=== PATIENT | female | born 1970 | race Caucasian/White ===

== ENCOUNTER 2023-02-19 14:39 | Outpatient (CLI) | payer OTHER, SELFPAY ==
--- NOTE | ~2023-02-19 | XR_ITS ---
EXAM: XR lumbar spine 2-3V DATE: 02/19/2023 14:53 HISTORY: low back pain . COMPARISON: None available. FINDINGS: Right nephrolithiasis. Mild lumbar scoliosis. 5 nonrib-bearing lumbar-type vertebral bodies . Pedicles intact. Normal vertebral body alignment. Vertebral body heights preserved. Mild marginal o steophytosis throughout the lumbar spine. Mild disc space narrowing at L4-5. Moderate disc space narr owing at L5-S1. Moderate-severe facet hypertrophy in the mid and lower lumbar spine. No fracture or d islocation. IMPRESSION: Multilevel degenerative disc disease, moderate at L5-S1. Moderate-severe mid and lower pablo mbar facet arthropathy. Reviewed, dictated and finalized at location K. ERTY CONDITION ASSESSOR IMPRESSION: Multilevel degenerative disc disease, moderate at L5-S1. Moderate-s evere mid and lower lumbar facet arthropathy.
--- NOTE | ~2023-02-19 | XR_ITS ---
Supine and upright views of the abdomen Clinical history: Abdominal pain Findings: Bowel gas pattern is nonspecific. No evidence for obstruction or free air. 12 mm stone note d at the mid pole the right kidney. Osseous structures are intact. Impression: 12 mm right renal stone. Reviewed, dictated and finalized at [facility]. LAB Impression: 12 mm right renal stone.
== END 2023-02-19 14:40 ==
PROVIDERS: PCP Emergency Medicine; Visit Provider Emergency Medicine
DX: R10.9 Unspecified abdominal pain (principal); N20.0 Calculus of kidney; M51.36 Other intervertebral disc degeneration, lumbar region; M51.37 Other intervertebral disc degeneration, lumbosacral region
CPT/HCPCS: 72100; 74018

== ENCOUNTER 2023-02-24 11:51 | Inpatient (IN) | payer OTHER, SELFPAY ==
--- NOTE | ~2023-02-24 | CT_ITS ---
EXAMINATION: CT abdomen pelvis wo/w con DATE: 03/01/2023 17:41 INDICATION: pyelitis TECHNIQUE: Computed tomography (CT) of the abdomen and pelvis was performed without and with 100 mL O mnipaque-350 intravenous contrast. Automated exposure control and iterative reconstruction technique were employed. The dose-length product was 2843.37 mGy-cm. COMPARISON: None. FINDINGS: Lower thorax: Moderate bilateral pleural fluid collections. Multifocal pneumonia and septic emboli, n ot significantly changed given interval change in positioning and displacement by the effusions. Liver: Normal. Biliary/Gallbladder: Gallbladder is normal. No bile duct dilation. Pancreas: No mass or duct dilation. Spleen: Normal. Adrenals:No mass. Kidneys: Moderate subcapsular collection surrounds the left kidney, heterogeneous density, no definit brennon enhancement. Perinephric gas present about the lower pole on the left. Urothelial enhancement on the left. 8mm right UPJ stone. Multilobulated rim-enhancing collection about the right mid and lower pole. GI tract: No small or large bowel dilation. Appendix not visualized. Mesentery/Peritoneum: No ascites, mass, or free air. Retroperitoneum: No mass. Pelvis: Pelvic organs are within normal limits. Soft Tissues: Mild body wall edema. Bones: No acute osseous finding. IMPRESSION: New moderate bilateral pleural effusions. Unchanged multifocal pneumonia and septic emboli. Heterogeneous subcapsular collection about the left kidney, imaging features most consistent with a h ematoma. Infection is not entirely excluded. Left pyelitis. Persistent but slightly decreased volume of perinephric gas on the left. Right mid and lower pole perinephric collection concerning for perinephric abscess. Reviewed, dictated and finalized at location K. D BANK COORDINATOR IMPRESSION: New moderate bilateral pleural effusions. Unchanged multifocal pneumonia and septic emboli. Heterogeneous subcapsular collection about the left kidney, imaging features mo st consistent with a hematoma. Infection is not entirely excluded. Left pyelitis. Persistent but slightly decreased volume of perinephric gas on t he left. Right mid and lower pole perinephric collection concerning for perinephric absc ess.
--- NOTE | ~2023-02-24 | XR_ITS ---
EXAMINATION: XR chest 2V DATE: 03/01/2023 08:22 INDICATION: Shortness of breath TECHNIQUE: PA and lateral views of the chest are obtained. COMPARISON: 02/27/2023 FINDINGS: Patchy bilateral airspace opacities persist with slight improvement. There are small, stabl e pleural effusions. No pneumothorax is identified. The cardiomediastinal silhouette is normal. There is mild thoracic spondylosis. IMPRESSION: 1. Patchy bilateral airspace opacities with slight improvement, consistent with pneumonia. Reviewed, dictated and finalized at location F. ETICS DIRECTOR
--- NOTE | ~2023-02-24 | XR_ITS ---
Portable chest x-ray Comparison: 02/26/2023 Clinical History: Pneumonia Findings: Patchy bilateral airspace disease again present, most confluent at the right lower lobe re gion. Cardiomediastinal silhouette is stable. Bones and soft tissues are unremarkable. Impression: Stable patchy bilateral airspace disease. Reviewed, dictated and finalized at [facility]. ADING MACHINE FEEDER AUTOMATIC Impression: Stable patchy bilateral airspace disease.
--- NOTE | ~2023-02-24 | CT_ITS ---
EXAMINATION: 1. CT guide absc cath placement 2. CT guide absc cath placement DATE: 03/04/2023 16:11 INDICATION: Bilateral perinephric abscesses. TECHNIQUE: The procedure including the risks, benefits, and alternatives was discussed with the patie nt. Risks discussed included bleeding and infection. The patient understood the risks and benefits an d agreed to proceed. The skin overlying the kidneys was prepped and draped in usual sterile fashion. Anesthetic was administered with 1% lidocaine subcutaneously. An 18 gauge trochar needle was inserte d into the right perinephric abscess with CT guidance. The needle was exchanged over a wire for 6 Enoch nch and 8 Argentine dilators and then for an 8.5 Argentine pigtail catheter. An 18 gauge trochar needle was inserted into the left perinephric abscess with CT guidance. The needl e was exchanged over a wire for 6 Argentine and 8 Argentine dilators and then for an 8.5 Argentine pigtail cat heter. The catheters were stitched to the skin, and sterile dressings were applied. The mA was adjust ed according to patient size. Iterative reconstruction technique was employed. The dose-length produc t was 379.42 mGy-cm. There were no immediate complications. FINDINGS: CT images demonstrate the catheter within the right perinephric abscess. 8 mL opaque will fl uid was aspirated for testing. CT images demonstrate the catheter within the left perinephric abscess . 7 mL bloody fluid was aspirated and discarded. IMPRESSION: 1. Successful CT-guided right perinephric abscess drainage. 2. 8 mL opaque will fluid from the right perinephric abscess was sent for aerobic and anaerobic cultur es. 3. Successful CT-guided left perinephric abscess drainage. Reviewed, dictated and finalized at location A. S OFFICER IMPRESSION: 1. Successful CT-guided right perinephric abscess drainage. 2. 8 mL opaque will fluid from the right perinephric abscess was sent for aerobi c and anaerobic cultures. 3. Successful CT-guided left perinephric abscess drainage.
--- NOTE | ~2023-02-24 | CT_ITS ---
EXAMINATION: CT abdomen pelvis wo con DATE: 02/24/2023 19:00 INDICATION: Left flank pain. Acute kidney injury. TECHNIQUE: Computed tomography (CT) of the abdomen and pelvis was performed without intravenous contr ast. Automated exposure control and iterative reconstruction technique were employed. The dose-length product was 1353.48 mGy-cm. COMPARISON: None. FINDINGS: There are scattered peripheral airspace opacities and nodules in the lungs. Some of the nod ules have areas of cavitation. No pleural effusion. The heart size is normal. No pericardial effusion . There is diffuse hepatic steatosis. The gallbladder, spleen, pancreas, and adrenal glands are paulo l. There is an 8 mm stone in right renal pelvis. There is soft tissue attenuation in right perinephri c fat. There is a hyperdense subcapsular hematoma of left kidney with maximum thickness of 16 mm. The re is gas in the left perinephric fat. There is urothelial thickening in left renal pelvis. There are no dilated loops of bowel. The appendix is not visualized. There are no pathologically enlarged lymp h nodes. There is no free intraperitoneal fluid. There is mild thoracic and lumbar spondylosis. IMPRESSION: 1. Acute subcapsular hematoma of left kidney. 2. Urothelial thickening in left renal pelvis, consistent with pyelitis. Gas in the left perinephric fat may be from infection in the absence of recent intervention. 3. Soft tissue in right perinephric space. This finding may be subacute hematoma and/or cellulitis. 4. Nonobstructing right kidney stone. 5. Diffuse lung disease, likely multifocal pneumonia and septic emboli. Reviewed, dictated and finalized at location E. ONAL PLANNER IMPRESSION: 1. Acute subcapsular hematoma of left kidney. 2. Urothelial thickening in left renal pelvis, consistent with pyelitis. Gas in the left perinephric fat may be from infection in the absence of recent interv ention. 3. Soft tissue in right perinephric space. This finding may be subacute hematom a and/or cellulitis. 4. Nonobstructing right kidney stone. 5. Diffuse lung disease, likely multifocal pneumonia and septic emboli.
--- NOTE | ~2023-02-24 | XR_ITS ---
Portable chest x-ray Comparison: None Clinical History: Pneumonia Findings: There is patchy bibasilar airspace consolidation with mild peripheral haziness throughout most of the lungs. Cardiomediastinal silhouette is stable. Bones and soft tissues are unremarkable. Impression: Extensive patchy airspace disease, worse at the lung bases. Correlate for pulmonary edema/atelectasis versus pneumonia. Element of underlying interstitial disease is not completely excluded. Reviewed, dictated and finalized at location . DSCRIBER MECHANIC Impression: Extensive patchy airspace disease, worse at the lung bases. Correlate for pulmo nary edema/atelectasis versus pneumonia. Element of underlying interstitial dis ease is not completely excluded.
[2023-02-24 12:10] VITALS: BP 147/66; PULSE 107; RESP 18; TEMP 36.4; O2SAT 95
[2023-02-24 14:23] VITALS: RESP 20
--- NOTE | 2023-02-24 15:08 | ED.RECABL ---
HPI - Recheck/Abnormal Lab/Rx General Chief Complaint: Recheck/Abnormal Lab/Rx Stated Complaint: Abnormal labs Time Seen by Provider: 02/24/23 14:29 History of Present Illness HPI narrative: Patient is a 52-year-old female who presents ER due to abnormal outpatient labs. Recently was seen by her PCP for fatigue. Patient found to have elevated blood sugar and possible UTI. Patient reports mild discomfort around the joint when she urinates. No fevers or chills or sweats. She does feel like she has been drinking more water than typical. No previous history of diabetes and she is not on any diabetic medication. Related Data Home Medications Medication Instructions Recorded Confirmed multivitamin (Daily Multi-Vitamin 1 tablet PO DAILY 02/19/23 02/19/23 tablet) Allergies Allergy/AdvReac Type Severity Reaction Status Date / Time acetaminophen [From Vicodin] AdvReac Mild Dizziness Verified 02/24/23 14:25 hydrocodone [From Vicodin] AdvReac Mild Dizziness Verified 02/24/23 14:25 propoxyphene AdvReac Mild Dizziness Verified 02/24/23 14:25 [From Darvocet-N] Review of Systems Review of Systems: All systems reviewed & are unremarkable except as noted in HPI and below Constitutional: Constitutional: Denies chills, Reports fatigue and Denies fever(s) Cardiovascular: Cardiovascular: Reports no additional cardiovascular complaints Respiratory: Respiratory: Reports no additional respiratory complaints Gastrointestinal: Gastrointestinal: Reports no additional gastrointestinal complaints Genitourinary: Genitourinary: Denies nocturia, Reports dysuria and Denies flank pain PMFSH Past Medical History Medical History (Updated 02/24/23 @ 18:15 by Sung Morales MD) Diabetes Surgical History Surgical History (Updated 02/19/23 @ 13:38 by Cassie Willoughby CMA) No history of previous surgery Family History Family History (Updated 02/19/23 @ 13:39 by Cassie Willoughby CMA) Father Cancer Hypertension Mother Diabetes mellitus Heart disease Sibling Diabetes mellitus Social History Social History (Updated 02/19/23 @ 13:37 by Cassie Willoughby CMA) Smoking status: Never smoker Alcohol intake: current Substance use: never Lack of Transportation: No Lack of Food: Never True Current Housing: I Have Housing Concerned About Future Housing: No Difficulty Paying Gas/Electric Bills: No Difficulty Paying for Meds: No Currently Unemployed: No Education: Master's Degree or Higher Living arrangements: with family Occupation/Education: occupation 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 HEAD: Normocephalic, atraumatic. EYES: PERRL and EOMI. ENT: Dry mucous membranes CHEST: Clear to auscultation. No respiratory distress. HEART: Regular rate and rhythm. Normal peripheral pulses. EXTREMITIES: Normal range of motion. No edema. SKIN: Warm, dry, no rash. NEURO: Alert and oriented x3. PSYCH: Normal mood and affect. Course Course Emergency Course: patient resting comfortably. Informed of results. admit to hospitalist service. Patient with ROSARIO with UTI that may be becoming pyelonephritis. Ceftriaxone started. Blood cultured. Aggressive hydration ordered. Vital Signs Vital signs: Vital Signs Temperature 97.6 F 02/24/23 12:10 Pulse Rate 107 H 02/24/23 12:10 Respiratory Rate 18 02/24/23 12:10 Blood Pressure 147/66 H 02/24/23 12:10 Pulse Oximetry 95 02/24/23 12:10 Temperature 97.6 F 02/24/23 12:10 Pulse Rate 107 H 02/24/23 12:10 Respiratory Rate 20 02/24/23 14:23 Blood Pressure 147/66 H 02/24/23 12:10 Pulse Oximetry 95 02/24/23 12:10 MDM - Recheck/Abnormal Lab/Rx Lab Data 02/24/23 15:25 02/24/23 15:25 Labs: Lab Results 02/24/23
[2023-02-24] MEDS: SODIUM CHLORIDE 0.9% IV 1,000 ML 999 ML IV CONT ×4 (15:26→20:48)
[2023-02-24 15:33] LABS: Hematocrit 35.5 % (37.0-47.0); Hemoglobin 11.7 g/dL (12.0-15.0); Mean Corpuscular Hemoglobin 29.9 pg (26-34); Mean Corpuscular Volume 90.8 fl (80-100); Mean Platelet Volume 10.3 fl (7.4-10.4); Platelet Count Result 376 k/mm3 (150-375); Red Blood Count 3.91 M/mm3 (4.2-5.4); Red Cell Distribution Width 12.6 % (11.5-14.5); White Blood Count 25.5 K/mm3 (4.5-10.0)
[2023-02-24 15:49] LABS: Appearance Urine Turbid (Clear); Bacteria Urine 4+ /hpf; Bilirubin Urine Negative (Negative); Blood Urine 3+ (Negative); Color Urine Yellow (Yellow); Glucose Urine UA 3+ mg/dL (Negative); Ketones Urine Trace mg/dL (Negative); Leukocyte Esterase Ur 2+ LEU/UL (Negative); Need Manual Microscopic Reviewed; Nitrate Urine Negative (Negative); Non Pathogenic Casts >20; Protein Urine 3+ mg/dL (Negative); Specific Grav Ur 1.023 (1.001-1.035); Squamous Epithelial Cell Urine Many /hpf (Few); Urobilinogen Urine 0.2 mg/dL (<2.0); WBC Urine >100 /hpf; pH Urine 5.5 (5.0-9.0)
[2023-02-24 15:50] LABS: Alanine Aminotransferase 26 U/L (6-35); Albumin Level 3.5 g/dL (3.5-5.1); Alkaline Phosphatase 338 U/L (38-126); Anion Gap 19 mmol/L (8-16); Aspartate Amino Transferase 23 U/L (14-36); Bilirubin,Total 0.8 mg/dL (0.2-1.3); Blood Urea Nitrogen 50 mg/dL (7-17); Calcium 9.9 mg/dL (8.4-10.2); Carbon Dioxide 19 mmol/L (22-30); Chloride 88 mmol/L (98-107); Estimated CRCL calculation 27 ml/min; Estimated Glomerular Filt Rate 21; Glucose 599 mg/dL (65-110); Potassium 4.6 mmol/L (3.4-5.0); Sodium 126 mmol/L (137-145)
[2023-02-24 15:51] LABS: Add Urine Microscopic? YES
[2023-02-24 16:03] LABS: Band Neutrophils Percent 12 % (0-6); Lymphocytes Absolute Manual 2.55 K/mm3 (1.1-4.5); Monocytes Absolute Manual 1.78 K/mm3 (0.1-0.90); Monocytes Percent Manual 7 % (3-9); Neutrophils Absolute Manual 21.16 K/mm3 (1.7-7.2); Neutrophils Percent Manual 71 % (46-73); Total Cells Counted 100
[2023-02-24 16:04] LABS: Schistocytes None Seen (NORMAL)
[2023-02-24 17:44] LABS: Lactic Acid Reflex 2.1 mmol/L (0.7-2.0)
[2023-02-24 17:54] LABS: Glucose Point of Care > 500 mg/dl (65-105)
[2023-02-24] MEDS: ONDANSETRON INJ 4 MG/2 ML VIAL IV PUSH (19:23)
[2023-02-24 19:28] VITALS: BP 150/75; PULSE 112; RESP 20; O2SAT 95
[2023-02-24] MEDS: SODIUM CHLORIDE 0.9% IV 1,000 ML 125 ML IV CONT (19:35)
[2023-02-24 19:47] LABS: Glucose Point of Care > 500 mg/dl (65-105)
--- NOTE | 2023-02-24 20:05 | PM.IMHP ---
H&P: HPI History of Present Illness Date/Time: 02/24/23 18:15 Chief Complaint: Abnormal labs. Narrative: This is a very pleasant 52-year-old female with no significant medical history, however she does admit that she is bad about going to the doctor, who presented to the emergency department via private vehicle for evaluation of abnormal labs. The patient provides the following history. Several weeks ago she had the COVID booster and flu shot and she felt a bit sick thereafter with headache and chills. It is not unusual for her to have the symptoms post vaccination however the symptoms continued and the following weekend she developed a fever, generalized malaise, decreased energy, poor appetite, mild dysuria, a constant aching discomfort in the left back into the flank. She finally made an appointment with a doctor and she had routine labs drawn late last week and an x-ray of the lumbar spine which showed a kidney stone in the right kidney. The last several days her pain has been worse and she has now had nausea and vomiting. She also endorses poor appetite, polydipsia, and polyuria. Today she received a phone call that she needed to come to the ER as her glucose was high. She has no known history of diabetes. She denies sick contacts. No sore throat, headache, or sinus congestion. She denies chest pain and shortness of breath. No significant cough. Denies diarrhea. In the ED: She was afebrile on arrival with stable blood pressures. Labs were significant for a WBC count of 25.5 with 12% bands, sodium 126, potassium 4.6, chloride 88, carbon dioxide 19, anion gap 19, BUN 50, creatinine 2.40, glucose 599, lactic acid 2.1. UA was positive for 3+ protein, 3+ glucose, trace ketones, 3+ blood, 2+ leukocyte esterase, 11 to 20 RBC, greater than 100 WBC, many squamous cells, and 4+ bacteria. She was given 1 g of ceftriaxone and 2 L fluid bolus and I was asked to admit her in this setting. At the time my evaluation she had left-sided CVA tenderness and tenderness to palpation throughout the left side of the abdomen. CT of the abdomen pelvis showed an acute subcapsular hematoma of left kidney, left-sided emphysematous pyelitis, nonobstructing right kidney stone, and diffuse lung disease, likely multifactorial pneumonia and septic emboli. Unfortunately despite aggressive IV fluid rehydration and rapid acting insulin, her repeat BMP has continued to show hyperglycemia and increasing anion gap and she is being transferred to the ICU for insulin drip. Review of Systems Review of Systems: Twelve systems were reviewed and are negative except for as per HPI. [facility] Past Medical History Medical History (Updated 02/25/23 @ 01:37 by Malou Parra PA-C) Type 2 diabetes mellitus Surgical History Surgical History No history of previous surgery Family History Family History Father Cancer Hypertension Mother Diabetes mellitus Heart disease Sibling Diabetes mellitus Social History Social History (Updated 02/25/23 @ 01:33 by Malou Parra PA-C) Social History: Surrogate medical decision maker: Magno Newman, spouse. Code status: Full code. 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
[2023-02-24 20:12] LABS: Anion Gap 16 mmol/L (8-16); Blood Urea Nitrogen 50 mg/dL (7-17); Carbon Dioxide 16 mmol/L (22-30); Chloride 95 mmol/L (98-107); Estimated CRCL calculation 31 ml/min; Estimated Glomerular Filt Rate 25; Glucose 540 mg/dL (65-110); Magnesium 1.8 mg/dL (1.6-2.3); Potassium 4.6 mmol/L (3.4-5.0); Sodium 127 mmol/L (137-145)
[2023-02-24 20:20] LABS: Reflex Lactic Acid Yes or No Add Lactic
[2023-02-24] MEDS: INSULIN ASPART (*BKC) 100 UNITS/ML 12 UNITS SUB-Q (20:48)
[2023-02-24 21:15] LABS: Beta-Hydroxybutyrate/Acetoacetate 2.48 mmol/L (0.02-0.27)
[2023-02-24 21:18] LABS: Alveolar/Arterial O2 Gradient 43.4 mmHg; Base Excess ABG -7.9 mEq/l (+/-2.0); Carboxyhemoglobin 0.7 % THb (0-2.0); Device ROOM AIR; Fractional Inspired Oxygen 21 %; HCO3 ABG 17.4 mEq/l (22.0-26.0); Methemoglobin ABG 0.4 %THb (0-1.5); Modified Allen's Test Pass; Oxygen Content ABG 14.4 %vol (16.0-22.0); Oxygen Saturation ABG 91.1 % (95.0-100.0); Oxyhemoglobin 89.5 % THb (90.0-100.0); PCO2 ABG 34.9 mmHg (35.0-45.0); PO2 ABG 64.5 mmHg (80.0-100.0); PO2 FiO2 Ratio Arterial Blood 3.07 %; Reduced Hemoglobin 9.4 %THb (0-5.0); Site Drawn RIGHT RADIAL; Total Hemoglobin 11.4 g/dL (12.0-18.0); pH ABG 7.316 (7.350-7.450)
[2023-02-24 21:20] VITALS: BMI 38.9
[2023-02-24 21:20] LABS: Creatine Kinase < 20 U/L (30-135)
[2023-02-24 21:36] VITALS: BP 149/69; PULSE 103; RESP 16; TEMP 36.3; O2SAT 94
[2023-02-24 21:49] VITALS: BMI 38.9
[2023-02-24 21:55] LABS: Glucose Point of Care 466 mg/dl (65-105)
[2023-02-24 22:00] VITALS: PULSE 102
[2023-02-24] MEDS: MEROPENEM 1 GM/NS 100 ML 1 GM/100 ML BAG IVPB (22:05)
[2023-02-24 22:09] LABS: Hemoglobin A1C 12.3 % (<5.7)
--- NOTE | 2023-02-24 23:09 | ADMGEN ---
This patient, Dayna Newman, was admitted to IMU Room 209- at 2136. Patient/family oriented to hospital policies and general routines including ID bracelet, bed and alarms, visiting hours, pain management, procedures, bathroom and other care routines, personal items, smoking policy, room service/diet, and visiting hours. Information on how to activate the Rapid Response Team has been discussed. Patient/Family are encouraged to report perceived risks to care and to ask questions if they do not understand what they are told or what they should do.
[2023-02-24] MEDS: VANCOMYCIN 1,000 MG/NS 250 ML 1,000 MG/250 ML BAG 250 MG IVPB (23:27)
[2023-02-24] MEDS: VANCOMYCIN 1,250 MG/NS 250 ML 1,250 MG/250 ML BAG 166.67 MG IVPB (23:27)
[2023-02-25] VITALS (12 sets, daily range): BP systolic 124–158; BP diastolic 50–73; PULSE 80–107; RESP 16–30; TEMP 36.3–37.3; O2SAT 85–99; BMI 39.8
[2023-02-25 00:40] LABS: Anion Gap 14 mmol/L (8-16); Blood Urea Nitrogen 49 mg/dL (7-17); Carbon Dioxide 13 mmol/L (22-30); Chloride 101 mmol/L (98-107); Estimated CRCL calculation 37 ml/min; Estimated Glomerular Filt Rate 30; Glucose 412 mg/dL (65-110); Potassium 4.2 mmol/L (3.4-5.0); Sodium 128 mmol/L (137-145)
[2023-02-25 00:43] LABS: Glucose Point of Care 379 mg/dl (65-105)
--- NOTE | 2023-02-25 01:42 | ECHO_ITS ---
Patient Info Name: Dayna Newman Age: 52 years : 1970 Gender: Female Ht: 63 in Wt: 219 lbs BSA: 2.15 m2 HR: 80 bpm BP: 152 / 61 mmHg Heart Rhythm: Sinus Rhythm Technical Quality: Fair Exam Date: 02/25/2023 12:29 PM Exam Location: Echo Lab Patient Status: Inpatient Admit Date: 02/25/2023 Staff Ordering Physician: Malou Parra PA-C Mds Rn: Emperatriz Barraza RDCS Attending Provider: Kentrell Crowe MD Referring Physician: Fidel SMITH; Exam Type: CA echo dop color flow w con Study Info Indications - Sepsis, Septic emboli R00.0 - Tachycardia, unspecified Complete two-dimensional, color flow and Doppler transthoracic echocardiogram is performed with contrast to opacify the left ventricle and to improve the deliniation of the left ventricle endocardial borders. Contrast/Agitated Saline Contrast/Ag. Saline: Definity Amount: 2.00 ml Administered By: Emperatriz Barraza RDCS Existing IV Access: Yes IV Access Condition: patent with no signs of infiltration Summary 1. Normal left ventricular size and thickness with good contractility of all segments. Ejection fraction 65-70%. No segmental wall motion abnormalities. Normal diastolic function. 2. Mildly thickened mitral valve leaflets but no evidence of vegetation on any of the valves. 3. No significant stenosis or insufficiency of the valves. 4. Somewhat technically difficult study, definity echo contrast used. 5. Normal sinus rhythm. Left Ventricle Left ventricular chamber dimension is normal. Left ventricular systolic function is normal, estimated at 65-70%. There is no increased left ventricular wall thickness. Left ventricular septal wall motion is normal. The left ventricular diastolic function is normal. Right Ventricle Right ventricular chamber dimension is normal. Right ventricular systolic function is normal. Left Atria Left atrial chamber dimension is mildly enlarged. Right Atria Right atrial chamber dimension is normal. Aortic Valve The aortic valve is trileaflet. There is no aortic valve sclerosis. There is no aortic valve stenosis. There is no aortic valve regurgitation. Pulmonic Valve The pulmonic valve is normal. There is no pulmonic valve stenosis. There is trace pulmonic regurgitation. Mitral Valve The mitral valve has thickened leaflets. There is no mitral valve stenosis. There is no mitral valve regurgitation. Tricuspid Valve The tricuspid valve leaflets are normal. There is no significant tricuspid valve stenosis. There is trace tricuspid valve regurgitation. No pulmonary hypertension, estimated pulmonary arterial systolic pressure is 30 mmHg. Pericardium/Pleural The pericardium appears normal. There is no pericardial effusion. Inferior Vena Cava Normal inferior vena cava with >50% collapse upon inspiration consistent with Empty right atrial pressure, 10 mmHg. Aorta The aortic root size at the sinus of Valsalva is normal. The prox ascending aorta size is normal. Left Ventricular Outflow Tract Name Value Normal LVOT 2D LVOT Diameter 1.96 cm LVOT Doppler LVOT Peak Gradient 4 mmHg LVOT Mean Gradient
--- NOTE | 2023-02-25 02:30 | PC.NURSE ---
This patient, Dayna Newman, was transferred to ICU 11 on 02/25/23 at 0225. Personal belongings sent with patient. Report given to SHANTI Lawson. Appropriate documentation sent with patient.
[2023-02-25] MEDS: INSULIN HUMAN REGULAR (*BKC) 100 UNITS/ML 15 UNITS IV PUSH (02:55)
[2023-02-25] MEDS: INSULIN HUMAN REGULAR (*BKC) 100 UNITS in SODIUM CHLORIDE 0.9% IV 99 ML 10 UNITS IV CONT (02:56)
[2023-02-25] MEDS: SODIUM CHLORIDE 0.9% IV 1,000 ML 150 ML IV CONT (02:58)
[2023-02-25 03:28] LABS: Glucose Point of Care 363 mg/dl (65-105)
[2023-02-25] MEDS: HYDROcodone/acetaminophen (*CRX) 5-325 MG TABLET 1 TAB PO ×3 (03:31→19:36)
[2023-02-25 04:11] LABS: Glucose Point of Care 357 mg/dl (65-105)
[2023-02-25 05:10] LABS: Glucose Point of Care 261 mg/dl (65-105)
[2023-02-25] MEDS: KCL 20 MEQ/D5/0.45% SOD CHL 1,000 ML 150 ML IV CONT ×2 (06:37→20:04)
--- NOTE | 2023-02-25 06:48 | PC.NURSE ---
okay to draw bmp at 700
[2023-02-25 07:05] LABS: Hematocrit 35.5 % (37.0-47.0); Hemoglobin 11.3 g/dL (12.0-15.0); Mean Corpuscular HGB Conc 31.8 g/dl (32-36); Mean Corpuscular Hemoglobin 30.1 pg (26-34); Mean Corpuscular Volume 94.7 fl (80-100); Platelet Count Result 304 k/mm3 (150-375); Red Blood Count 3.75 M/mm3 (4.2-5.4); Red Cell Distribution Width 12.5 % (11.5-14.5); White Blood Count 22.8 K/mm3 (4.5-10.0)
[2023-02-25 07:21] LABS: Glucose Point of Care 198 mg/dl (65-105)
[2023-02-25 07:21] LABS: Glucose Point of Care 198 mg/dl (65-105)
[2023-02-25 07:47] LABS: Anion Gap 12 mmol/L (8-16); Blood Urea Nitrogen 50 mg/dL (7-17); Calcium 8.3 mg/dL (8.4-10.2); Carbon Dioxide 18 mmol/L (22-30); Chloride 104 mmol/L (98-107); Estimated CRCL calculation 34 ml/min; Estimated Glomerular Filt Rate 26; Glucose 217 mg/dL (65-110); Potassium 3.8 mmol/L (3.4-5.0); Sodium 134 mmol/L (137-145)
[2023-02-25 08:42] LABS: Glucose Point of Care 198 mg/dl (65-105)
[2023-02-25 09:20] LABS: MRSA (PCR) NOT DETECTED (NOT DETECTE)
[2023-02-25 09:26] LABS: Glucose Point of Care 225 mg/dl (65-105)
[2023-02-25] MEDS: MEROPENEM 1 GM/NS 100 ML 1 GM/100 ML BAG IVPB ×2 (09:50→20:38)
[2023-02-25] MEDS: SODIUM CHLORIDE 0.9% IV 1,000 ML 999 ML IV CONT (10:11)
[2023-02-25 11:06] LABS: Anion Gap 13 mmol/L (8-16); Blood Urea Nitrogen 49 mg/dL (7-17); Calcium 8.1 mg/dL (8.4-10.2); Carbon Dioxide 15 mmol/L (22-30); Chloride 105 mmol/L (98-107); Estimated CRCL calculation 36 ml/min; Estimated Glomerular Filt Rate 28; Glucose 262 mg/dL (65-110); Potassium 4.7 mmol/L (3.4-5.0); Sodium 133 mmol/L (137-145)
[2023-02-25 12:22] LABS: Glucose Point of Care 282 mg/dl (65-105)
[2023-02-25 12:22] LABS: Glucose Point of Care 244 mg/dl (65-105)
[2023-02-25] MEDS: PERFLUTREN LIPID MICROSPHERES 1.5 ML VIAL DILUTED TO 10 ML TOTAL VOLUME IV PUSH (13:01)
[2023-02-25 13:02] LABS: Glucose Point of Care 349 mg/dl (65-105)
--- NOTE | 2023-02-25 13:41 | WPDCNINT ---
Assessment and Plan Assessment and plan (1) Diabetic ketoacidosis associated with type 2 diabetes mellitus: Code(s): E11.10 - Type 2 diabetes mellitus with ketoacidosis without coma Status: Acute Assessment and Plan: Patient presented with hyperglycemia, nausea, vomiting. 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 - Tubulo-interstitial nephritis, not specified as acute or chronic Status: Acute Assessment and Plan: Patient has been started on vancomycin and meropenem for possible pyelonephritis (3) Acute kidney injury: Code(s): N17.9 - Acute kidney failure, unspecified Status: Acute Assessment and Plan: Acute kidney injury could be related to pyelonephritis, hypovolemia, DKA -patient adequately fluid-resuscitated, continue monitor urine output renal function electrolytes -creatinine is improving 1.90 this morning (creatinine was 2.40 on admission) (4) Renal hematoma, left: Code(s): S37.012A - Minor contusion of left kidney, initial encounter Status: Acute Assessment and Plan: Urology has been consulted, await their evaluation and recommendation (5) Diffuse lung disease: Code(s): J98.4 - Other disorders of lung Status: Acute Assessment and Plan: Possible pneumonia, continue vancomycin and meropenem Plan DVT prophylaxis: Lovenox Stress ulcer prophylaxis: Not indicated Nutrition: NPO except ice chips Code Status: Full code Critical Care Time Spent: 46 minutes Due to a high probability of clinically significant, life threatening deterioration, the patient required my highest level of preparedness to intervene emergently and I personally spent this critical care time directly and personally managing the patient. This critical care time included obtaining a history; examining the patient; pulse oximetry; ordering and review of studies; arranging urgent treatment with development of a management plan; evaluation of patient's response to treatment; frequent reassessment; and discussions with other providers. It was exclusive of separately billable procedures and treating other patients and teaching time. Please see Assessment and Plan section and the rest of the note for further information on patient assessment and treatment This dictation may have been done utilizing a voice recognition system. Attempts have been made to correct errors. However, there may be uncorrected grammatical, spelling, and recognitions errors present. Child Welfare Caseworker Consult Note Consult date: 02/25/23 Reason for consult: Diabetic ketoacidosis, hyperglycemia, UTI HPI: Dayna Newman is a 52 year old female with no significant past medical history as she has not seen a doctor and long long time presented the ED on 02/24/2023 for hyperglycemia and possible UTI. Patient was found to be in DKA in the ER with blood sugars of 599, anion gap of 19, elevated beta hydroxybutyrate. White count of 25.5 x 12% bandemia. UA was positive with 3+ protein, 3+ glucose, trace ketones, 3+ blood 2+ leukocyte Estrace, 4+ bacteria patient was given 2 L IV fluids in the ER and started on insulin infusion per DKA protocol. Patient also complained of left-sided CVA tenderness and tenderness to on the left side of the abdomen. CT scan of the abdomen and pelvis showed acute subcapsular hematoma of left kidney, left-sided emphysematous pyelitis, nonobstructing right kidney stone, and diffuse lung disease, likely multifactorial pneumonia and septic emboli. Patient was transferred to the ICU for further management Patient seen examined the ICU, is
[2023-02-25 14:22] LABS: Glucose Point of Care 277 mg/dl (65-105)
[2023-02-25 14:22] LABS: Glucose Point of Care 293 mg/dl (65-105)
--- NOTE | 2023-02-25 14:25 | WPDURCON ---
Assessment and Plan Assessment and plan (1) Emphysematous pyelitis: Code(s): N12 - Tubulo-interstitial nephritis, not specified as acute or chronic Status: Acute Assessment and Plan: Await urine cultures and needs to be treated with a least 2 week course of antibiotics. Can be converted to oral once sensitivities are identified (2) Renal hematoma, left: Code(s): S37.012A - Minor contusion of left kidney, initial encounter Status: Acute Assessment and Plan: Etiology is unclear may simply have been spontaneous. Follow H& H. Will need repeat imaging in approximately 4-6 weeks to see if hematoma is resolving Urology Consult Note HPI Date Seen: 02/25/23 Time Seen: 14:26 Requesting Physician: Kentrell Crowe MD Primary Care Provider: Patrick Montero MD Consult Narrative Reason for consult: Pyelonephritis with subcapsular hematoma-left kidney Narrative: Dayna Newman is a 52 year old female who underwent a COVID in flu vaccine in then developed some issues post vaccination with lethargy and left flank pain. Evaluation in the emergency room revealed a blood sugar of 599 along with what appears to be infected urine with left emphysematous pyelonephritis and a left subcapsular hematoma. She denies any trauma to the area were prior history of such issues. White count on admission was 25,000 which is down to 22,000 today. Creatinine on admission 2.4 down to 1.9 today. Review of Systems Review of Systems: All systems reviewed & are unremarkable except as noted in HPI and below PMFSH Past Medical History Medical History Type 2 diabetes mellitus Surgical History Surgical History No history of previous surgery Family History Family History Father Cancer Hypertension Mother Diabetes mellitus Heart disease Sibling Diabetes mellitus Social History Social History Social History: Surrogate medical decision maker: Magno Newman, spouse. Code status: Full code. 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 Spiritual care concerns: No Agree to blood products: Yes Meds Home Medications and Allergies Home Medications Medication Instructions Recorded Confirmed Type multivitamin (Daily Multi-Vitamin 1 tablet PO DAILY 02/19/23 02/24/23 History tablet) Allergies Allergy/AdvReac Type Severity Reaction Status Date / Time acetaminophen [From Vicodin] AdvReac Mild Dizziness Verified 02/24/23 14:25 hydrocodone [From Vicodin] AdvReac Mild Dizziness Verified 02/24/23 14:25 propoxyphene AdvReac Mild Dizziness Verified 02/24/23 14:25 [From Darvocet-N] Vital Signs Vital Signs - 24 hr 02/24/23 19:28 02/24/23 21:36 02/24/23 23:35 Temperature 36.3 C L Pulse Rate 112 H 103 H Respiratory Rate 20 16 Blood Pressure 150/75 H 149/69 H Pulse Oximetry 95 94 Oxygen Delivery Room Air Oxygen Flow Rate 02/24/23 22:00 02/25/23 00:00 02/25/23 00:00 Temperature 36.3 C L Pulse Rate 102 H 106 H 107 H Respiratory Rate 16 Blood Pressure 131/50 L Pulse Oximetry 85 L Oxygen Delivery Oxygen Flow Rate 02/25/23 04:00 02/25/23 04:00 02/25/23 04:00 Temperature 36.9 C Pulse Rate 80 80 80 Respiratory Rate 16 25 H Blood
--- NOTE | 2023-02-25 14:57 | IVDEFINITY ---
Prior to administration of IV Definity the patient was educated on the risks and benefits of the imaging enhancing agent including potential adverse side effects. The patient verbalized understanding. Allergies were verified. No exclusion criteria were identified and at least one of the following inclusion criteria were met: 1) physician request, 2) patient technically difficult to image (per the [place] [employer] guidelines of two or more segments not discernable within the apical view), or 3) questionable left ventricular function. ?
[2023-02-25] MEDS: ENOXAPARIN 40 MG/0.4 ML SYRINGE SUB-Q (15:24)
[2023-02-25 15:25] LABS: Glucose Point of Care 271 mg/dl (65-105)
[2023-02-25 16:28] LABS: Glucose Point of Care 228 mg/dl (65-105)
[2023-02-25 17:26] LABS: Glucose Point of Care 229 mg/dl (65-105)
[2023-02-25 18:26] LABS: Glucose Point of Care 232 mg/dl (65-105)
[2023-02-25 18:38] LABS: Anion Gap 13 mmol/L (8-16); Blood Urea Nitrogen 46 mg/dL (7-17); Calcium 8.1 mg/dL (8.4-10.2); Carbon Dioxide 12 mmol/L (22-30); Chloride 106 mmol/L (98-107); Estimated CRCL calculation 40 ml/min; Estimated Glomerular Filt Rate 32; Glucose 262 mg/dL (65-110); Potassium 4.4 mmol/L (3.4-5.0); Sodium 131 mmol/L (137-145)
[2023-02-25 19:52] LABS: Glucose Point of Care 224 mg/dl (65-105)
[2023-02-25 20:48] LABS: Glucose Point of Care 252 mg/dl (65-105)
[2023-02-25] MEDS: INSULIN HUMAN REGULAR (*BKC) 100 UNITS in SODIUM CHLORIDE 0.9% IV 99 ML 6.5 UNITS IV CONT (21:49)
[2023-02-25 21:56] LABS: Glucose Point of Care 257 mg/dl (65-105)
[2023-02-25 22:14] LABS: Anion Gap 9 mmol/L (8-16); Blood Urea Nitrogen 43 mg/dL (7-17); Calcium 7.8 mg/dL (8.4-10.2); Carbon Dioxide 17 mmol/L (22-30); Chloride 105 mmol/L (98-107); Estimated CRCL calculation 40 ml/min; Estimated Glomerular Filt Rate 32; Glucose 266 mg/dL (65-110); Potassium 4.1 mmol/L (3.4-5.0); Sodium 131 mmol/L (137-145)
[2023-02-25 22:52] LABS: Glucose Point of Care 266 mg/dl (65-105)
[2023-02-25 23:44] LABS: Glucose Point of Care 243 mg/dl (65-105)
[2023-02-26] VITALS (16 sets, daily range): BP systolic 97–173; BP diastolic 58–80; PULSE 84–98; RESP 23–28; TEMP 36.6–37.1; O2SAT 91–95; BMI 41.3
[2023-02-26] MEDS: HYDROcodone/acetaminophen (*CRX) 5-325 MG TABLET 1 TAB PO ×5 (00:11→20:58)
[2023-02-26 01:04] LABS: Glucose Point of Care 236 mg/dl (65-105)
[2023-02-26 01:39] LABS: Glucose Point of Care 220 mg/dl (65-105)
[2023-02-26 02:39] LABS: Glucose Point of Care 221 mg/dl (65-105)
[2023-02-26 03:15] LABS: Basophils Absolute Auto 0.1 K/mm3 (0.0-0.1); Basophils Percent Auto 0.6 % (0.2-1.2); Eosinophils Absolute Auto 0.2 K/mm3 (0-0.3); Eosinophils Percent Auto 0.7 % (0-4.4); Hemoglobin 9.3 g/dL (12.0-15.0); Immature Granulocyte Absolute 1.18 K/mm3 (0.00-0.031); Immature Granulocyte Percent A 5.7 % (0-0.5); Lymphocytes Absolute Auto 1.79 K/mm3 (0.9-3.2); Lymphocytes Percent Auto 8.6 % (18.3-44.2); Mean Corpuscular HGB Conc 32.1 g/dl (32-36); Mean Corpuscular Volume 93.5 fl (80-100); Monocytes Absolute Auto 0.9 K/mm3 (0.1-0.6); Monocytes Percent Auto 4.2 % (2.6-8.5); Neutrophils Absolute Auto 16.6 K/mm3 (1.3-6.7); Neutrophils Percent Auto 80.2 % (45.5-73.1); Platelet Count Result 282 k/mm3 (150-375); Red Cell Distribution Width 13.2 % (11.5-14.5); White Blood Count 20.7 K/mm3 (4.5-10.0)
[2023-02-26 03:31] LABS: Alanine Aminotransferase 14 U/L (6-35); Albumin Level 2.5 g/dL (3.5-5.1); Alkaline Phosphatase 204 U/L (38-126); Anion Gap 9 mmol/L (8-16); Aspartate Amino Transferase 27 U/L (14-36); Bilirubin,Total 0.8 mg/dL (0.2-1.3); Blood Urea Nitrogen 42 mg/dL (7-17); Calcium 7.7 mg/dL (8.4-10.2); Carbon Dioxide 16 mmol/L (22-30); Chloride 105 mmol/L (98-107); Estimated CRCL calculation 40 ml/min; Estimated Glomerular Filt Rate 32; Glucose 230 mg/dL (65-110); Phosphorus 2.7 mg/dL (2.5-4.5); Potassium 4.1 mmol/L (3.4-5.0); Sodium 130 mmol/L (137-145)
[2023-02-26 03:45] LABS: Glucose Point of Care 205 mg/dl (65-105)
[2023-02-26 04:33] LABS: Anisocytosis 1+ (NORMAL); Poikilocytosis 1+ (NORMAL); Schistocytes None Seen (NORMAL)
[2023-02-26 04:34] LABS: Platelet Estimate Adequate (Adequate)
[2023-02-26 04:55] LABS: Glucose Point of Care 191 mg/dl (65-105)
[2023-02-26] MEDS: KCL 20 MEQ/D5/0.45% SOD CHL 1,000 ML 150 ML IV CONT (06:01)
[2023-02-26 06:11] LABS: Glucose Point of Care 215 mg/dl (65-105)
[2023-02-26 07:03] LABS: Glucose Point of Care 247 mg/dl (65-105)
[2023-02-26 08:02] LABS: Anion Gap 7 mmol/L (8-16); Blood Urea Nitrogen 40 mg/dL (7-17); Calcium 7.7 mg/dL (8.4-10.2); Carbon Dioxide 18 mmol/L (22-30); Chloride 105 mmol/L (98-107); Estimated CRCL calculation 41 ml/min; Estimated Glomerular Filt Rate 32; Glucose 272 mg/dL (65-110); Potassium 4.5 mmol/L (3.4-5.0); Sodium 130 mmol/L (137-145)
[2023-02-26] MEDS: INSULIN GLARGINE (*BKC) 100 UNITS/ML 25 UNITS SUB-Q (09:02)
[2023-02-26] MEDS: MEROPENEM 1 GM/NS 100 ML 1 GM/100 ML BAG IVPB ×2 (09:03→20:44)
[2023-02-26 09:26] LABS: Glucose Point of Care 282 mg/dl (65-105)
--- NOTE | 2023-02-26 10:32 | WPDINTPN ---
Progress Note: A&P Assessment and Plan (1) Diabetic ketoacidosis associated with type 2 diabetes mellitus: Code(s): E11.10 - Type 2 diabetes mellitus with ketoacidosis without coma Status: Acute Assessment and Plan: Patient presented with hyperglycemia, nausea, vomiting. Was found to be in DKA in the ER -received IV fluids and was started on insulin infusion per DKA protocol -her anion gap has closed and labs have improved. She is also asymptomatic -will discontinue insulin infusion and transition patient to subcutaneous insulin -start diabetic diet -hemoglobin A1c is 12.3 this admission (2) Emphysematous pyelitis: Code(s): N12 - Tubulo-interstitial nephritis, not specified as acute or chronic Status: Acute Assessment and Plan: Patient has been started on vancomycin and meropenem for possible pyelonephritis She is growing Klebsiella pneumoniae in her blood culture Discontinue vancomycin but continue meropenem at this time Urine culture is negative (3) Acute kidney injury: Code(s): N17.9 - Acute kidney failure, unspecified Status: Acute Assessment and Plan: Acute kidney injury c secondary to sepsis, pyelonephritis, hypovolemia, DKA -baseline creatinine unknown as patient may have chronic kidney disease secondary to untreated diabetes and hypertension -CK was normal -no obstruction or hydronephrosis on the CT scan although she has a nonobstructing right kidney stone -creatinine is down to 1.7 and has been stable for last 24 hours -patient adequately fluid-resuscitated and now appears to be slightly volume overloaded. -hold further IV fluids - continue monitor urine output renal function electrolytes (4) Renal hematoma, left: Code(s): S37.012A - Minor contusion of left kidney, initial encounter Status: Acute Assessment and Plan: Urology as well admit the patient and recommend repeat imaging in 4-6 week with conservative management (5) Diffuse lung disease: Code(s): J98.4 - Other disorders of lung Status: Acute Assessment and Plan: Likely septic pneumonia secondary to bacteremia patient currently on meropenem (6) Bacteremia: Code(s): R78.81 - Bacteremia Status: Acute Assessment and Plan: Klebsiella bacteremia likely secondary to urine tract infection Echo negative for vegetations Antibiotics as above Plan DVT prophylaxis: Lovenox Stress ulcer prophylaxis: Not indicated Nutrition: Diabetic diet Code Status: Full code Incentive spirometry and up in chair Transfer out of ICU today Subjective Date/time seen: 12/06/23 Overnight events reviewed. Afebrile On 2 L nasal cannula Continues to be on insulin infusion and IV fluids Overall she states she feels better. Complains of the back on the left flank which she rates at 5/10. Denies any other complaints. Patient denies fever, chest pain, shortness of breath, cough, nausea vomiting, abdominal pain,, diarrhea, headache or constipation. All other systems were reviewed and were negative Blood pressure slightly elevated other vitals acceptable Review of Systems Review of Systems: All systems reviewed & are unremarkable except as noted in HPI and below (Subjective) Exam Narrative: General: Pleasant female in no acute distress HEENT:? Pupils equal and reactive, sclera is clear, dry oral mucosa Neck:? Supple Respiratory:? Decreased at bases, coarse breath sounds bilaterally, no wheezing Cardiac:? S1-S2 is normal, regular rate and rhythm Abdomen:? Soft, nontender, nondistended, hypoactive bowel sounds obese Extremities:? Mild edema in extremities, palpable pedal pulses Neuro:? Patient is awake, alert, oriented x3, nonfocal Skin:? Warm and dry Psych:? Normal mentation and affect Objective Data Vital Signs Vital Signs: Vital Signs - 24 hr 02/25/23 12:00 02/25/23 12:00 02/25/23 12:00 Temperature 37.2 C Pulse Rate 97 97 97 Respiratory Rate 22
[2023-02-26 10:33] LABS: Glucose Point of Care 305 mg/dl (65-105)
--- NOTE | 2023-02-26 11:42 | PCFNICU ---
ICU Rounding Note: Pt current nutrition is DBCC. Last recorded weight is 106 kg, up from 102 kg on admit. Bowel Motility:NO BM reported. Labs Reviewed:Glu 272, GFR 32, BUN 40, Cr 1.7, Alb 2.5 Meds Noted: Lantus, Vancomycin, Meropenem. Skin: WNL Additional Notes: Patient diet order has advanced to a DBCC diet. Patient has been educated and outpatient referral made for wellness educator and dietitian services. No further nutritional interventions needed at this time.
[2023-02-26 12:06] LABS: Glucose Point of Care 313 mg/dl (65-105)
[2023-02-26] MEDS: INSULIN ASPART (*BKC) 100 UNITS/ML SUB-Q ×5 (12:12→20:59)
[2023-02-26] MEDS: ENOXAPARIN 40 MG/0.4 ML SYRINGE SUB-Q (14:11)
[2023-02-26 16:41] LABS: Glucose Point of Care 272 mg/dl (65-105)
--- NOTE | 2023-02-26 18:14 | PM.IMPN ---
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, not specified as acute or chronic Status: Acute (4) Acute kidney injury: Code(s): N17.9 - Acute kidney failure, unspecified Status: Acute (5) Diffuse lung disease: Code(s): J98.4 - Other disorders of lung Status: Acute (6) New onset type 2 diabetes mellitus: Code(s): E11.9 - Type 2 diabetes mellitus without complications Status: Acute (7) Dehydration: Code(s): E86.0 - Dehydration Status: Acute (8) Renal hematoma, left: Code(s): S37.012A - Minor contusion of left kidney, initial encounter Status: Acute (9) Right nephrolithiasis: Code(s): N20.0 - Calculus of kidney Status: Acute Plan 02/26/2023: Patient treated aggressively for DKA in the ICU as per DKA protocol And anion gap has now closed Continue with insulin and sliding scale coverage Her hemoglobin A1c is above 12 showing uncontrolled diabetes mellitus Diabetic teaching/nutritional consult ordered Continue IV antibiotics for UTI She can be downgraded to floor ? Patient seen and examined at bedside during my morning rounds ? Collaborated with patient's nurse at the bedside in detail and addressed all concerns ? Labs, electrolytes, radiology, investigations and test results reviewed ? Consult/Nursing/Ancilliary notes on the chart reviewed and appreciated ? Spoke with patient/family at the bedside and answered all the questions that they had Repeat labs in a.m. Electrolyte replacement as per protocol. Patient will be monitored very closely on the floor. Further recommendations as per the hospital course. 02/24/2023: The patient presented to the emergency department for evaluation of abnormal labs as detailed in HPI. Labs, imaging, EKG, and all reports were personally reviewed. Random glucose was over 500 and her hemoglobin A1c today is 12.3%. Despite aggressive IV fluid rehydration and subcu insulin, she remains hyperglycemic and her anion gap is increasing and she has been transferred to the ICU where she will be started on insulin drip per DKA protocol. Continue Q hourly Accu-Cheks and q.4 BMPs. She will need to be started on long-acting insulin upon resolution of DKA. Dietitian and manufacturing controller has been consulted. She is profoundly dehydrated and her acute kidney injury is likely related to the same. She has right-sided nephrolithiasis which seems to be causing no issue. Left kidney however shows pyelitis and findings consistent with emphysematous pyelonephritis. A small subcapsular renal hematoma was also noted on the left. I discussed the case with the on-call urologist who recommends antibiotics and they will see her in the morning. CT scan also showed diffuse lung disease and possible septic emboli. She has been started on broad-spectrum antibiotics to include meropenem and vancomycin. Blood and urine cultures have been obtained and are pending. She does meet sepsis criteria with leukocytosis with bandemia, elevated lactic acid level, and acute kidney injury in the setting of infection. Her home medications will be reviewed and resumed as appropriate. Findings and treatment plan were discussed with the patient. Questions were solicited and answered to satisfaction. The patient's medical management will be taken over by the hospitalist team in a.m. Subjective Date/time seen: 02/26/23 18:14 Interval history: Patient is feeling a little better. Nausea and vomiting is slowly improving. Still feels tired fatigued. DKA has resolved. Review of Systems Review of Systems: 14 systems were reviewed with pertinent posi
[2023-02-26 20:49] LABS: Glucose Point of Care 317 mg/dl (65-105)
[2023-02-27] VITALS (7 sets, daily range): BP systolic 137–153; BP diastolic 65–70; PULSE 85–100; RESP 18–22; TEMP 36.4–36.8; O2SAT 94–96
[2023-02-27] MEDS: HYDROcodone/acetaminophen (*CRX) 5-325 MG TABLET 1 TAB PO ×6 (02:37→23:10)
[2023-02-27 03:58] LABS: Basophils Absolute Auto 0.2 K/mm3 (0.0-0.1); Basophils Percent Auto 0.7 % (0.2-1.2); Eosinophils Absolute Auto 0.5 K/mm3 (0-0.3); Eosinophils Percent Auto 1.8 % (0-4.4); Hematocrit 27.5 % (37.0-47.0); Hemoglobin 8.8 g/dL (12.0-15.0); Immature Granulocyte Absolute 1.95 K/mm3 (0.00-0.031); Immature Granulocyte Percent A 7.4 % (0-0.5); Lymphocytes Percent Auto 7.2 % (18.3-44.2); Mean Corpuscular Hemoglobin 29.6 pg (26-34); Mean Corpuscular Volume 92.6 fl (80-100); Mean Platelet Volume 9.9 fl (7.4-10.4); Monocytes Absolute Auto 1.5 K/mm3 (0.1-0.6); Monocytes Percent Auto 5.8 % (2.6-8.5); Neutrophils Absolute Auto 20.5 K/mm3 (1.3-6.7); Neutrophils Percent Auto 77.1 % (45.5-73.1); Platelet Count Result 295 k/mm3 (150-375); Red Blood Count 2.97 M/mm3 (4.2-5.4); Red Cell Distribution Width 13.5 % (11.5-14.5); White Blood Count 26.5 K/mm3 (4.5-10.0)
[2023-02-27 04:18] LABS: Potassium 4.7 mmol/L (3.4-5.0)
[2023-02-27 04:22] LABS: Anion Gap 7 mmol/L (8-16); Blood Urea Nitrogen 40 mg/dL (7-17); Calcium 7.8 mg/dL (8.4-10.2); Carbon Dioxide 17 mmol/L (22-30); Chloride 104 mmol/L (98-107); Estimated CRCL calculation 43 ml/min; Estimated Glomerular Filt Rate 34; Glucose 305 mg/dL (65-110); Magnesium 1.9 mg/dL (1.6-2.3); Phosphorus 3.3 mg/dL (2.5-4.5); Sodium 128 mmol/L (137-145)
[2023-02-27 07:45] LABS: Glucose Point of Care 304 mg/dl (65-105)
[2023-02-27] MEDS: INSULIN ASPART (*BKC) 100 UNITS/ML SUB-Q ×7 (08:30→21:13)
[2023-02-27] MEDS: MEROPENEM 1 GM/NS 100 ML 1 GM/100 ML BAG IVPB (08:31)
[2023-02-27] MEDS: INSULIN GLARGINE (*BKC) 100 UNITS/ML 25 UNITS SUB-Q (08:31)
[2023-02-27] MEDS: SODIUM CHLORIDE 0.9% IV 1,000 ML 75 ML IV CONT ×2 (09:39→23:09)
[2023-02-27 12:19] LABS: Glucose Point of Care 262 mg/dl (65-105)
--- NOTE | 2023-02-27 13:37 | PC.NURSE ---
Patient transferred to room 321 per bed. Report given to SHANTI Chisholm. All belongings transferred with patient. Oriented to room and policies. Call light within reach.
[2023-02-27 14:51] LABS: Glucose Point of Care 490 mg/dl (65-105)
[2023-02-27] MEDS: ENOXAPARIN 40 MG/0.4 ML SYRINGE SUB-Q (15:03)
[2023-02-27 17:30] LABS: Glucose Point of Care 217 mg/dl (65-105)
--- NOTE | 2023-02-27 19:58 | PM.IMPN ---
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, not specified as acute or chronic Status: Acute (4) Acute kidney injury: Code(s): N17.9 - Acute kidney failure, unspecified Status: Acute (5) Diffuse lung disease: Code(s): J98.4 - Other disorders of lung Status: Acute (6) New onset type 2 diabetes mellitus: Code(s): E11.9 - Type 2 diabetes mellitus without complications Status: Acute (7) Dehydration: Code(s): E86.0 - Dehydration Status: Acute (8) Renal hematoma, left: Code(s): S37.012A - Minor contusion of left kidney, initial encounter Status: Acute (9) Right nephrolithiasis: Code(s): N20.0 - Calculus of kidney Status: Acute Plan 02/27/2023: Patient is slowly improving symptomatic DKA has resolved Increase Lantus insulin from 25-30 units subQ q.a.m. Continue with the insulin as per sliding scale coverage ROSARIO is slowly improving Continue with gentle IV hydration Urine culture showed Klebsiella pneumoniae with nair sensitivity to all antibiotics except cefazolin IV antibiotics de-escalated from IV meropenem to IV ceftriaxone based on urines cultures Patient had the jump in WBC count to 26.5 today Monitor leukocytosis closely Encourage patient to be compliant with her diabetic teachings and diet control upon discharge from the hospital ? Patient seen and examined at bedside during my morning rounds ? Collaborated with patient's nurse at the bedside in detail and addressed all concerns ? Labs, electrolytes, radiology, investigations and test results reviewed ? Consult/Nursing/Ancilliary notes on the chart reviewed and appreciated ? Spoke with patient/family at the bedside and answered all the questions that they had Repeat labs in a.m. Electrolyte replacement as per protocol. Patient will be monitored very closely on the floor. Further recommendations as per the hospital course. 02/26/2023: Patient treated aggressively for DKA in the ICU as per DKA protocol And anion gap has now closed Continue with insulin and sliding scale coverage Her hemoglobin A1c is above 12 showing uncontrolled diabetes mellitus Diabetic teaching/nutritional consult ordered Continue IV antibiotics for UTI She can be downgraded to floor 02/24/2023: The patient presented to the emergency department for evaluation of abnormal labs as detailed in HPI. Labs, imaging, EKG, and all reports were personally reviewed. Random glucose was over 500 and her hemoglobin A1c today is 12.3%. Despite aggressive IV fluid rehydration and subcu insulin, she remains hyperglycemic and her anion gap is increasing and she has been transferred to the ICU where she will be started on insulin drip per DKA protocol. Continue Q hourly Accu-Cheks and q.4 BMPs. She will need to be started on long-acting insulin upon resolution of DKA. Dietitian and adaptive physical educator has been consulted. She is profoundly dehydrated and her acute kidney injury is likely related to the same. She has right-sided nephrolithiasis which seems to be causing no issue. Left kidney however shows pyelitis and findings consistent with emphysematous pyelonephritis. A small subcapsular renal hematoma was also noted on the left. I discussed the case with the on-call urologist who recommends antibiotics and they will see her in the morning. CT scan also showed diffuse lung disease and possible septic emboli. She has been started on broad-spectrum antibiotics to include meropenem and vancomycin. Blood and urine cultures have been obtained and are pending. She does meet sepsis criteria with leukocytosis
[2023-02-27 21:03] LABS: Glucose Point of Care 223 mg/dl (65-105)
[2023-02-27] MEDS: cefTRIAXone 2 GM/NS 100 ML 2 GM/100 ML BAG IVPB (21:13)
[2023-02-28] MEDS: HYDROcodone/acetaminophen (*CRX) 5-325 MG TABLET 1 TAB PO ×2 (03:42→07:51)
[2023-02-28 07:04] LABS: Basophils Absolute Auto 0.2 K/mm3 (0.0-0.1); Basophils Percent Auto 0.8 % (0.2-1.2); Eosinophils Absolute Auto 0.9 K/mm3 (0-0.3); Eosinophils Percent Auto 3.7 % (0-4.4); Hematocrit 28.3 % (37.0-47.0); Hemoglobin 8.7 g/dL (12.0-15.0); Immature Granulocyte Percent A 8.9 % (0-0.5); Lymphocytes Absolute Auto 2.17 K/mm3 (0.9-3.2); Lymphocytes Percent Auto 8.8 % (18.3-44.2); Mean Corpuscular HGB Conc 30.7 g/dl (32-36); Mean Corpuscular Hemoglobin 29.4 pg (26-34); Mean Corpuscular Volume 95.6 fl (80-100); Mean Platelet Volume 9.6 fl (7.4-10.4); Monocytes Absolute Auto 1.5 K/mm3 (0.1-0.6); Monocytes Percent Auto 5.9 % (2.6-8.5); Neutrophils Absolute Auto 17.7 K/mm3 (1.3-6.7); Neutrophils Percent Auto 71.9 % (45.5-73.1); Platelet Count Result 343 k/mm3 (150-375); Red Blood Count 2.96 M/mm3 (4.2-5.4); Red Cell Distribution Width 13.8 % (11.5-14.5); White Blood Count 24.6 K/mm3 (4.5-10.0)
[2023-02-28 07:24] LABS: Magnesium 1.8 mg/dL (1.6-2.3); Phosphorus 3.7 mg/dL (2.5-4.5)
[2023-02-28 07:56] LABS: Glucose Point of Care 180 mg/dl (65-105)
[2023-02-28 07:56] LABS: Glucose Point of Care 182 mg/dl (65-105)
--- NOTE | 2023-02-28 10:32 | PC.NURSE ---
patient has already been seen nurses educator on 02/25
[2023-02-28] MEDS: INSULIN GLARGINE (*BKC) 100 UNITS/ML 30 UNITS SUB-Q (11:18)
[2023-02-28 11:20] LABS: Glucose Point of Care 224 mg/dl (65-105)
--- NOTE | 2023-02-28 12:16 | P.PNIM_ITS ---
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, not specified as acute or chronic Status: Acute (4) Acute kidney injury: Code(s): N17.9 - Acute kidney failure, unspecified Status: Acute (5) Diffuse lung disease: Code(s): J98.4 - Other disorders of lung Status: Acute (6) New onset type 2 diabetes mellitus: Code(s): E11.9 - Type 2 diabetes mellitus without complications Status: Acute (7) Dehydration: Code(s): E86.0 - Dehydration Status: Acute (8) Renal hematoma, left: Code(s): S37.012A - Minor contusion of left kidney, initial encounter Status: Acute (9) Right nephrolithiasis: Code(s): N20.0 - Calculus of kidney Status: Acute Plan 02/28/2023: * Leukocytosis is slowly downtrending but still in 20s * Repeat blood cultures ordered to document clearing of Klebsiella pneumoniae bacteremia * Continue with IV ceftriaxone 2 g IV b.i.d. * Patient have a mix O's of infection likely from urine/lungs * Patient may need longer course of IV antibiotics if patient has a leukocytosis persist * Follow-up chest x-ray PA and lateral in a.m. * Urinalysis ordered today as well * DC [place], started patient on tramadol 50 mg p.o. q.8 hours p.r.n. for pain * Diabetic teaching ordered ? Patient seen and examined at bedside during my morning rounds ? Collaborated with patient's nurse at the bedside in detail and addressed all concerns ? Labs, electrolytes, radiology, investigations and test results reviewed ? Consult/Nursing/Ancilliary notes on the chart reviewed and appreciated ? Spoke with patient/family at the bedside and answered all the questions that they had Repeat labs in a.m. Electrolyte replacement as per protocol. Patient will be monitored very closely on the floor. Further recommendations as per the hospital course. 02/27/2023: * Patient is slowly improving symptomatic * DKA has resolved * Increase Lantus insulin from 25-30 units subQ q.a.m. * Continue with the insulin as per sliding scale coverage * ROSARIO is slowly improving * Continue with gentle IV hydration * Urine culture showed Klebsiella pneumoniae with nair sensitivity to all antibiotics except cefazolin * IV antibiotics de-escalated from IV meropenem to IV ceftriaxone based on urines cultures * Patient had the jump in WBC count to 26.5 today * Monitor leukocytosis closely * Encourage patient to be compliant with her diabetic teachings and diet control upon discharge from the hospital 02/26/2023: * Patient treated aggressively for DKA in the ICU as per DKA protocol * And anion gap has now closed * Continue with insulin and sliding scale coverage * Her hemoglobin A1c is above 12 showing uncontrolled diabetes mellitus * Diabetic teaching/nutritional consult ordered * Continue IV antibiotics for UTI * She can be downgraded to floor 02/24/2023: The patient presented to the emergency department for evaluation of abnormal labs as detailed in HPI. Labs, imaging, EKG, and all reports were personally reviewed. Random glucose was over 500 and her hemoglobin A1c today is 12.3%. Despite aggressive IV fluid rehydration and subcu insulin, she remains hyperglycemic and her a
--- NOTE | 2023-02-28 12:16 | PM.IMPN ---
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, not specified as acute or chronic Status: Acute (4) Acute kidney injury: Code(s): N17.9 - Acute kidney failure, unspecified Status: Acute (5) Diffuse lung disease: Code(s): J98.4 - Other disorders of lung Status: Acute (6) New onset type 2 diabetes mellitus: Code(s): E11.9 - Type 2 diabetes mellitus without complications Status: Acute (7) Dehydration: Code(s): E86.0 - Dehydration Status: Acute (8) Renal hematoma, left: Code(s): S37.012A - Minor contusion of left kidney, initial encounter Status: Acute (9) Right nephrolithiasis: Code(s): N20.0 - Calculus of kidney Status: Acute Plan 02/28/2023: Leukocytosis is slowly downtrending but still in 20s Repeat blood cultures ordered to document clearing of Klebsiella pneumoniae bacteremia Continue with IV ceftriaxone 2 g IV b.i.d. Patient have a mix O's of infection likely from urine/lungs Patient may need longer course of IV antibiotics if patient has a leukocytosis persist Follow-up chest x-ray PA and lateral in a.m. Urinalysis ordered today as well [facility], started patient on tramadol 50 mg p.o. q.8 hours p.r.n. for pain Diabetic teaching ordered ? Patient seen and examined at bedside during my morning rounds ? Collaborated with patient's nurse at the bedside in detail and addressed all concerns ? Labs, electrolytes, radiology, investigations and test results reviewed ? Consult/Nursing/Ancilliary notes on the chart reviewed and appreciated ? Spoke with patient/family at the bedside and answered all the questions that they had Repeat labs in a.m. Electrolyte replacement as per protocol. Patient will be monitored very closely on the floor. Further recommendations as per the hospital course. 02/27/2023: Patient is slowly improving symptomatic DKA has resolved Increase Lantus insulin from 25-30 units subQ q.a.m. Continue with the insulin as per sliding scale coverage ROSARIO is slowly improving Continue with gentle IV hydration Urine culture showed Klebsiella pneumoniae with nair sensitivity to all antibiotics except cefazolin IV antibiotics de-escalated from IV meropenem to IV ceftriaxone based on urines cultures Patient had the jump in WBC count to 26.5 today Monitor leukocytosis closely Encourage patient to be compliant with her diabetic teachings and diet control upon discharge from the hospital 02/26/2023: Patient treated aggressively for DKA in the ICU as per DKA protocol And anion gap has now closed Continue with insulin and sliding scale coverage Her hemoglobin A1c is above 12 showing uncontrolled diabetes mellitus Diabetic teaching/nutritional consult ordered Continue IV antibiotics for UTI She can be downgraded to floor 02/24/2023: The patient presented to the emergency department for evaluation of abnormal labs as detailed in HPI. Labs, imaging, EKG, and all reports were personally reviewed. Random glucose was over 500 and her hemoglobin A1c today is 12.3%. Despite aggressive IV fluid rehydration and subcu insulin, she remains hyperglycemic and her anion gap is increasing and she has been transferred to the ICU where she will be started on insulin drip per DKA protocol. Continue Q hourly Accu-Cheks and q.4 BMPs. She will need to be started on long-acting insulin upon resolution of DKA. Dietitian and parent educator has been consulted. She is profoundly dehydrated and her acute kidney injury is likely related to the same. She has right-sided nephrolithiasis which seems to be causing n
--- NOTE | 2023-02-28 12:22 | PC.NURSE ---
called educator senior clinical and spoke to Yolanda. She will be seeing patient with f/u visit this afternoon.
[2023-02-28] MEDS: traMADol HCL (*CRX) 50 MG TABLET PO ×2 (13:13→21:12)
[2023-02-28] MEDS: INSULIN ASPART (*BKC) 100 UNITS/ML SUB-Q ×4 (13:14→18:17)
[2023-02-28] MEDS: SODIUM CHLORIDE 0.9% IV 1,000 ML 75 ML IV CONT (13:21)
[2023-02-28 13:50] VITALS: BMI 42.0
[2023-02-28 13:55] LABS: Anion Gap 8 mmol/L (8-16); Blood Urea Nitrogen 32 mg/dL (7-17); Carbon Dioxide 15 mmol/L (22-30); Chloride 108 mmol/L (98-107); Estimated CRCL calculation 58 ml/min; Estimated Glomerular Filt Rate 47; Glucose 170 mg/dL (65-110); Potassium 4.5 mmol/L (3.4-5.0); Sodium 131 mmol/L (137-145)
--- NOTE | 2023-02-28 14:14 | WPDUROPN2 ---
Progress Note: A&P Assessment and Plan (1) Renal hematoma, left: Code(s): S37.012A - Minor contusion of left kidney, initial encounter Status: Acute Assessment and Plan: Hemodynamically stable. If white count persists may require repeat scanning to make sure no abscess is developed. Otherwise will re-scan in 1-2 months. (2) Bacteremia: Code(s): R78.81 - Bacteremia Status: Acute Assessment and Plan: Repeat blood cultures pending at this time. (3) Right nephrolithiasis: Code(s): N20.0 - Calculus of kidney Status: Acute Assessment and Plan: Nonobstructive in nature and to be addressed at a later point time. (4) Acute kidney injury: Code(s): N17.9 - Acute kidney failure, unspecified Status: Acute Assessment and Plan: Creatinine has not been checked in several days. Put in order former daily creatinine levels. Subjective Subjective Date/Time Seen: 02/28/23 14:14 Principal diagnosis: Left subcapsular bleed, sepsis, acute kidney injury Interval history: Flora is feeling better however her white count continues to be elevated. She has been hemodynamically stable. Review of Systems Review of Systems: All systems reviewed & are unremarkable except as noted in HPI and below Exam Const: General: cooperative and comfortable Resp: Effort & Inspection: normal respiratory effort Cardio: Rate: regular rate Rhythm: regular rhythm Objective Data Vital Signs Vital Signs: Vital Signs - 24 hr 02/27/23 16:00 02/27/23 16:00 02/27/23 22:31 Temperature 36.8 C 36.6 C Pulse Rate 95 100 Respiratory Rate 20 18 Blood Pressure 152/67 H 153/70 H Pulse Oximetry 95 94 94 Oxygen Delivery Nasal Cannula Oxygen Flow Rate 2 02/28/23 08:00 Temperature Pulse Rate Respiratory Rate Blood Pressure Pulse Oximetry Oxygen Delivery Room Air Oxygen Flow Rate Intake/Output Intake/Output: Intake & Output 02/25/23 02/26/23 02/27/23 02/28/23 23:59 23:59 23:59 23:59 Intake Total 1450 4276.7 2640 1900 Output Total 600 1100 1300 Balance 850 3176.7 1340 1900 Meds/Results Medications: Active Medications Generic Name Dose Route Start Last Admin Trade Name Freq PRN Reason Stop Dose Admin Acetaminophen 650 mg 02/24/23 16:14 Acetaminophen 325 Mg Tablet PO Q4H PRN Mild Pain (1-3) or Fever Dextrose 12.5 gm 02/25/23 01:23 Dextrose 50% 25 Gm/50 Ml Syringe IV PUSH PRN PRN Hypoglycemia Protocol Enoxaparin Sodium 40 mg 02/25/23 14:00 02/27/23 15:03 Enoxaparin 40 Mg/0.4 Ml Syringe SUB-Q 40 mg Q24H IVA Administration Glucagon 1 mg 02/25/23 01:23 Glucagon For Inj 1 Mg Vial IM PRN PRN Hypoglycemia Protocol Glucose 15 gm 02/25/23 01:23 Glucose Oral Gel 15 Gm Of Glucse In 37.5 Gm Tube PO PRN PRN Hypoglycemia Protocol Dextrose 1,000 mls @ 100 mls/hr 02/25/23 01:23 Dextrose 5% 1,000 Ml IVPB PRN PRN Hypoglycemia Protocol Sodium Chloride 1,000 mls @ 75 mls/hr 02/27/23 09:20 02/28/23 13:21 Normal Saline Iv IV CONT 75 mls/hr .[id number] IVA Administration Ceftriaxone Sodium 2 gm in 100 mls @ 200 mls/hr 02/27/23 21:00 02/27/23 21:43 Rocephin 2 Gm/Ns 100 Ml IVPB 03/02/23 21:29 Infused Q24H IVA Infusion Insulin Aspart 5 units 02/26/23 08:00 02/28/23 13:14 Insulin Aspart (*Bkc) 100 Units/Ml SUB-Q 5 units TIDWM IVA Administration Insulin Aspart 3 - 6 units 02/26/23 11:30 02/28/23 13:15 Insulin Aspart (*Bkc) 100 Units/Ml SUB-Q 3 units ACHS IVA Administration Protocol Insulin Glargine 30 units 02/27/23 09:20 02/28/23 11:18 Insulin Glargine (*Bkc) 100 Units/Ml SUB-Q 30 units QAM IVA Administration Ondansetron HCl 4 mg 02/24/23 16:14 02/24/23 19:23 Ondansetron Inj 4 Mg/2 Ml Vial IV PUSH 4 mg Q4H PRN Administration Nausea Tramadol HCl 50 mg 02/28/23 12:17 02/28/23 13
[2023-02-28] MEDS: ENOXAPARIN 40 MG/0.4 ML SYRINGE SUB-Q (14:38)
[2023-02-28 16:00] VITALS: BP 176/68; PULSE 103; RESP 20; TEMP 36.9; O2SAT 94
[2023-02-28 17:11] LABS: Appearance Urine Cloudy (Clear); Bacteria Urine None Seen /hpf; Bilirubin Urine Negative (Negative); Blood Urine 2+ (Negative); Color Urine Yellow (Yellow); Glucose Urine UA 2+ mg/dL (Negative); Ketones Urine Negative (Negative); Leukocyte Esterase Ur 2+ LEU/UL (NEGATIVE); Need Manual Microscopic Reviewed; Nitrate Urine Negative (Negative); Protein Urine 1+ mg/dL (Negative); Specific Grav Ur 1.011 (1.001-1.035); Squamous Epithelial Cell Urine Moderate /hpf (Few); Urobilinogen Urine 0.2 mg/dL (<2.0); WBC Urine 51-100 /hpf (0-3); pH Urine 5.5 (5.0-9.0)
[2023-02-28 17:13] LABS: Add Urine Microscopic? YES
[2023-02-28 17:39] LABS: Glucose Point of Care 267 mg/dl (65-105)
[2023-02-28 19:50] VITALS: BP 160/79; PULSE 109; RESP 24; TEMP 36.1; O2SAT 90
[2023-02-28] MEDS: cefTRIAXone 2 GM/NS 100 ML 2 GM/100 ML BAG IVPB (20:04)
[2023-02-28 22:35] LABS: Glucose Point of Care 239 mg/dl (65-105)
[2023-03-01 04:33] VITALS: BP 170/85; PULSE 96; RESP 20; TEMP 35.7; O2SAT 90
[2023-03-01] MEDS: SODIUM CHLORIDE 0.9% IV 1,000 ML 75 ML IV CONT (04:52)
[2023-03-01 07:23] LABS: Glucose Point of Care 153 mg/dl (65-105)
[2023-03-01 07:36] LABS: Basophils Absolute Auto 0.1 K/mm3 (0.0-0.1); Basophils Percent Auto 0.2 % (0.2-1.2); Eosinophils Absolute Auto 0.7 K/mm3 (0-0.3); Eosinophils Percent Auto 2.5 % (0-4.4); Hematocrit 29.9 % (37.0-47.0); Hemoglobin 9.2 g/dL (12.0-15.0); Immature Granulocyte Absolute 2.42 K/mm3 (0.00-0.031); Immature Granulocyte Percent A 8.5 % (0-0.5); Lymphocytes Absolute Auto 2.72 K/mm3 (0.9-3.2); Lymphocytes Percent Auto 9.6 % (18.3-44.2); Mean Corpuscular HGB Conc 30.8 g/dl (32-36); Mean Corpuscular Hemoglobin 29.5 pg (26-34); Mean Corpuscular Volume 95.8 fl (80-100); Mean Platelet Volume 9.6 fl (7.4-10.4); Monocytes Absolute Auto 1.9 K/mm3 (0.1-0.6); Monocytes Percent Auto 6.7 % (2.6-8.5); Neutrophils Absolute Auto 20.7 K/mm3 (1.3-6.7); Neutrophils Percent Auto 72.5 % (45.5-73.1); Nucleated Red Blood Cells Perc 0.1 % (0.0-0.2); Platelet Count Result 476 k/mm3 (150-375); Red Blood Count 3.12 M/mm3 (4.2-5.4); Red Cell Distribution Width 13.7 % (11.5-14.5); White Blood Count 28.5 K/mm3 (4.5-10.0)
[2023-03-01 07:45] LABS: Magnesium 1.9 mg/dL (1.6-2.3); Phosphorus 3.3 mg/dL (2.5-4.5)
[2023-03-01] MEDS: INSULIN ASPART (*BKC) 100 UNITS/ML SUB-Q ×4 (08:38→17:13)
[2023-03-01] MEDS: INSULIN GLARGINE (*BKC) 100 UNITS/ML 30 UNITS SUB-Q (08:38)
[2023-03-01] MEDS: ENOXAPARIN 40 MG/0.4 ML SYRINGE SUB-Q (08:39)
[2023-03-01] MEDS: traMADol HCL (*CRX) 50 MG TABLET PO ×2 (08:40→17:17)
[2023-03-01 10:39] LABS: Potassium 3.8 mmol/L (3.4-5.0)
[2023-03-01 10:49] LABS: Anion Gap 11 mmol/L (8-16); Blood Urea Nitrogen 25 mg/dL (7-17); Calcium 8.4 mg/dL (8.4-10.2); Carbon Dioxide 14 mmol/L (22-30); Chloride 109 mmol/L (98-107); Estimated CRCL calculation 62 ml/min; Estimated Glomerular Filt Rate 52; Glucose 164 mg/dL (65-110); Sodium 134 mmol/L (137-145)
[2023-03-01 11:40] LABS: Glucose Point of Care 223 mg/dl (65-105)
[2023-03-01 14:00] VITALS: BP 161/64; PULSE 89; RESP 22; TEMP 36.6; O2SAT 94
--- NOTE | 2023-03-01 15:30 | PM.IMPN ---
Progress Note: A&P Assessment and Plan (1) Diabetic ketoacidosis associated with type 2 diabetes mellitus: Code(s): E11.10 - Type 2 diabetes mellitus with ketoacidosis without coma Status: Acute Assessment and Plan: Patient presented with hyperglycemia, nausea and vomiting.? She was found to be in DKA in the ER. She is a new onset DM. -She received IV fluids and started on insulin infusion per DKA protocol -AG closed. She was transitioned to SQ insulin -still with metabolic acidosis. Add oral biacarb. Check lactic acid (2) Sepsis: Code(s): A41.9 - Sepsis, unspecified organism Status: Acute Assessment and Plan: Patient with sepsis present on admission with tachycardia and leukocytosis. [place] related to the pneumonia and emphysematous pyelitis. Urine culture growing mixed genital irish. Blood cultures in all 4 bottles growing Klebsiella pneumoniae. Patient started on Rocephin and vancomycin. Rocephin switched to meropenem 02/24. Sensitivities return for the Klebsiella and patient was changed back to Rocephin 2 g daily 02/27 White count improved until 02/26 and began to worsen 02/27. Chest x-ray shows patchy bilateral airspace disease but overall improved. Concerning for development of perinephric abscess. 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 CT of the abdomen pelvis without contrast showed acute subcapsular hematoma of the left kidney with evidence of pyelitis. Is also gas in the left perinephric fat which may be from infection. There is a nonobstructing right kidney stone and soft tissue in the right perinephric space. Patient started on antibiotics as mentioned above. Urology consulted. Appreciate their input. White count is climbing. Will repeat CT scan. (4) Acute kidney injury: Code(s): N17.9 - Acute kidney failure, unspecified Status: Acute Assessment and Plan: Creatinine was 2.4 on admission. Creatinine has trended down to 1.1 today. She appears fluid overloaded so will stop IV fluids. Continue to monitor renal function, urine output and electrolytes. Metabolic acidosis noted. Check lactic acid. Add oral bicarb. (5) Pneumonia: Code(s): J18.9 - Pneumonia, unspecified organism Status: Acute Assessment and Plan: CT of the abdomen showed scattered peripheral airspace opacities and nodules in the lungs 02/24. Concern for multifocal pneumonia and septic emboli. Chest x-ray 02/26 showed extensive patchy airspace disease worse at the lung bases consistent with edema, atelectasis or pneumonia. Could not exclude ILD. She has been weaned to room air. She is using incentive spirometer. Cough is minimal. Repeat chest x-ray showing improvement. Suspect the source of the pneumonia is from pyelitis and bacteremia. Resolving (6) New onset type 2 diabetes mellitus: Code(s): E11.9 - Type 2 diabetes mellitus without complications Status: Acute Assessment and Plan: A1c 12.3%. The patient's blood glucose was reviewed on 03/01 Glucose remains well controlled. Patient has undergone education from the dietitian and tobacco prevention health educator. Continue AccuCheks covering with sliding scale. Hypoglycemia protocol available as needed. Continue current medications. Advance mealtime insulin. Will have nursing teach patient how to give herself injections. (7) Renal hematoma, left: Code(s): S37.012A - Minor contusion of left kidney, initial encounter Status: Acute Assessment and Plan: Etiology unclear. She denies history of trauma. Check PT/PTT. Check (8) Right nephrolithiasis: Code(s): N20.0 - Calculus of kidney Status: Acute Assessment and Plan: As above. Plan
[2023-03-01 16:16] LABS: Glucose Point of Care 146 mg/dl (65-105)
[2023-03-01] MEDS: SODIUM BICARBONATE TAB 650 MG TABLET PO (17:17)
[2023-03-01] MEDS: cefTRIAXone 2 GM/NS 100 ML 2 GM/100 ML BAG IVPB (20:42)
[2023-03-01 21:04] LABS: Glucose Point of Care 152 mg/dl (65-105)
[2023-03-01 21:15] VITALS: BP 169/79; PULSE 98; RESP 18; TEMP 36.8; O2SAT 90
[2023-03-01] MEDS: oxyCODONE/ACETAMINOPHEN (*CRX) 5-325 MG TABLET 1 TABLET PO (21:23)
[2023-03-01 21:37] LABS: INR 1.1; Prothrombin Time 14.8 Seconds (11.1-14.7)
[2023-03-01 21:38] LABS: Partial Thromboplastin Time 43.2 SECONDS (22.3-36.8)
[2023-03-01 21:39] LABS: Lactic Acid Reflex 0.9 mmol/L (0.7-2.0)
[2023-03-01 21:56] LABS: Beta HCG Quantitative < 2.39 mIU/ML
[2023-03-02] MEDS: traMADol HCL (*CRX) 50 MG TABLET PO ×2 (01:27→13:16)
[2023-03-02] MEDS: oxyCODONE/ACETAMINOPHEN (*CRX) 5-325 MG TABLET 1 TABLET PO ×3 (04:57→21:45)
[2023-03-02 05:00] VITALS: BP 161/66; PULSE 92; RESP 18; TEMP 36.2; O2SAT 95
[2023-03-02 07:00] LABS: Basophils Absolute Auto 0.1 K/mm3 (0.0-0.1); Basophils Percent Auto 0.5 % (0.2-1.2); Eosinophils Absolute Auto 0.6 K/mm3 (0-0.3); Eosinophils Percent Auto 2.3 % (0-4.4); Hematocrit 26.3 % (37.0-47.0); Hemoglobin 8.2 g/dL (12.0-15.0); Immature Granulocyte Absolute 1.46 K/mm3 (0.00-0.031); Immature Granulocyte Percent A 5.6 % (0-0.5); Lymphocytes Absolute Auto 2.37 K/mm3 (0.9-3.2); Lymphocytes Percent Auto 9.2 % (18.3-44.2); Mean Corpuscular HGB Conc 31.2 g/dl (32-36); Mean Corpuscular Hemoglobin 29.3 pg (26-34); Mean Corpuscular Volume 93.9 fl (80-100); Mean Platelet Volume 9.5 fl (7.4-10.4); Monocytes Absolute Auto 1.5 K/mm3 (0.1-0.6); Monocytes Percent Auto 5.6 % (2.6-8.5); Neutrophils Absolute Auto 19.9 K/mm3 (1.3-6.7); Neutrophils Percent Auto 76.8 % (45.5-73.1); Platelet Count Result 494 k/mm3 (150-375); Red Cell Distribution Width 13.6 % (11.5-14.5); White Blood Count 25.9 K/mm3 (4.5-10.0)
[2023-03-02 07:12] LABS: Albumin Level 2.5 g/dL (3.5-5.1); Anion Gap 5 mmol/L (8-16); Blood Urea Nitrogen 20 mg/dL (7-17); Calcium 7.9 mg/dL (8.4-10.2); Carbon Dioxide 19 mmol/L (22-30); Chloride 110 mmol/L (98-107); Estimated CRCL calculation 61 ml/min; Estimated Glomerular Filt Rate 52; Glucose 127 mg/dL (65-110); Magnesium 1.7 mg/dL (1.6-2.3); Potassium 3.9 mmol/L (3.4-5.0); Sodium 134 mmol/L (137-145)
[2023-03-02 07:57] LABS: Glucose Point of Care 130 mg/dl (65-105)
[2023-03-02] MEDS: INSULIN ASPART (*BKC) 100 UNITS/ML SUB-Q ×4 (08:18→17:34)
[2023-03-02] MEDS: INSULIN GLARGINE (*BKC) 100 UNITS/ML 30 UNITS SUB-Q (08:18)
[2023-03-02] MEDS: SODIUM BICARBONATE TAB 650 MG TABLET PO ×2 (08:19→17:33)
[2023-03-02] MEDS: ACETAMINOPHEN 325 MG TABLET 650 MG PO (08:24)
[2023-03-02 11:43] LABS: Glucose Point of Care 204 mg/dl (65-105)
[2023-03-02] MEDS: ENOXAPARIN 40 MG/0.4 ML SYRINGE SUB-Q (13:08)
[2023-03-02 16:00] VITALS: BP 159/79; PULSE 98; RESP 16; TEMP 36.9; O2SAT 97
--- NOTE | 2023-03-02 16:51 | WPDUROPN2 ---
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 Blood cultures on 02/24 were Klebsiella pneumonia, but surveillance cultures on 02/[address] AP Noncon 02/24 urologically shows left subcapsular hematoma, some soft-tissue density around the right kidney, some air within the collecting system, and a nonobstructing right renal stone. There is no contrasted phase on this CT. CT AP WW/O done 03/01 shows persistent left subcapsular hematoma, persistent left perinephric gas, but improved from prior -- comparing noncon phase to noncon phase 02/24, the soft tissue around the right kidney looks relatively stable -- the contrasted phase shows that this is a rim-enhancing fluid collection. PLAN: -No acute urologic intervention -- while patient is not making rapid strides towards improvement, there are also no major rapid urologic radiologic progressions -Agree that primary goal is source control -- for reasons above, etiology does not appear to be urologic at this time -However, given the finding of the right sammie-renal fluid collection better appreciated on 03/01 CT AP WWO (compared to the noncon only 02/24 CT), patient may benefit from IR evaluation of placement of percutaneous drain in right sammie-nephric rim-enhancing fluid collection -Will sign patient out to weekday team to help drive this decision after assessing patient's progress, or lack thereof, overnight Subjective Subjective Date/Time Seen: 03/02/23 16:51 Interval history: Urology called for further input given her interval CT scan this . A&P will be provided from chart review. Patient's WBC improved from 28k to 26k, Cr 1.1 -- Urine Culture on admission 02/24 and repeat on 02/28 are negative -- and therefore, unlikely to be renal in etiology, as pyelonephritis etiology can be urinary or hematologic. Blood cultures on 02/24 were Klebsiella pneumonia, but surveillance cultures on 02/28 are negative to date. CT AP Noncon 02/24 urologically shows left subcapsular hematoma, some soft-tissue density around the right kidney, some air within the collecting system, and a nonobstructing right renal stone. There is no contrasted phase on this CT. CT AP WW/O done 03/01 shows persistent left subcapsular hematoma, persistent left perinephric gas, but improved from prior -- comparing noncon phase to noncon phase 02/24, the soft tissue around the right kidney looks relatively stable -- the contrasted phase shows that this is a rim-enhancing fluid collection Objective Data Vital Signs Vital Signs: Vital Signs - 24 hr 03/01/23 21:15 03/01/23 20:00 03/02/23 05:00 Temperature 36.8 C 36.2 C L Pulse Rate 98 92 Respiratory Rate 18 18 Blood Pressure 169/79 H 161/66 H Pulse Oximetry 90 95 Oxygen Delivery Room Air 03/02/23 08:00 Temperature Pulse Rate Respiratory Rate Blood Pressure Pulse Oximetry Oxygen Delivery Room Air Intake/Output Intake/Output: Intake & Output 02/27/23 02/28/23 03/01/23 03/02/23 23:59 23:59 23:59 23:59 Intake Total 2640 2900 3570 1777 Output Total 1300 Balance 1340 2900 3570 1777 Meds/Results Medications: Active Medications Generic Name Dose Route Start Last Admin Trade Name Freq PRN Reason Stop Dose Admin Acetaminophen 650 mg 02/24/23 16:14 03/02/23 08:24 Acetaminophen 325 Mg Tablet PO 650 mg
--- NOTE | 2023-03-02 17:32 | PM.IMPN ---
Progress Note: A&P Assessment and Plan (1) Sepsis: Code(s): A41.9 - Sepsis, unspecified organism Status: Acute Assessment and Plan: Patient with sepsis present on admission with tachycardia and leukocytosis. [place] related to the pneumonia and emphysematous pyelitis. UCx 02/24 grew mixed genital irish. BCx 02/24 grew Klebsiella pneumoniae in all 4 bottles BCx 02/28 NGTD Patient started on Rocephin and vancomycin. Rocephin switched to meropenem 02/24. Sensitivities return for the Klebsiella and patient was changed back to Rocephin 2g daily 02/27 White count improved until 02/26 and began to worsen 02/27. Chest x-ray shows patchy bilateral airspace disease but overall improved. WBC climbed to 28K but better today at 26K CT A/P w/wo 03/01 showing: unchanged multifocal PNA and septic emboli Left kidney subcapsular collection c/w hematoma with perinephric gas and urothelial enhancement Right kidney 8mm UPJ stone but no hydronephrosis and multilobulated rim-enhancing fluid fluid collection mid and lower pole Concerning for development of perinephric abscess. Discussed with Urology and appreciate their input. Will change back to meropenem for now. (2) Emphysematous pyelitis: Code(s): N12 - Tubulo-interstitial nephritis, not specified as acute or chronic Status: Acute Assessment and Plan: Patient was having left flank pain and noted to have acute kidney injury. CT abd/pelvis 02/24 wo contrast showed: Acute subcapsular hematoma of the left kidney with evidence of pyelitis. Also gas in the left perinephric fat which may be from infection. There is a nonobstructing right kidney stone and soft tissue in the right perinephric space. Patient started on antibiotics as mentioned above. Urology consulted. Appreciate their input. White count better Follow (3) Diabetic ketoacidosis associated with type 2 diabetes mellitus: Code(s): E11.10 - Type 2 diabetes mellitus with ketoacidosis without coma Status: Acute Assessment and Plan: Patient presented with hyperglycemia, nausea and vomiting.? She was found to be in DKA in the ER. She is a new onset DM. -She received IV fluids and started on insulin infusion per DKA protocol -AG closed. She was transitioned to SQ insulin -still with non-anion gap metabolic acidosis but lactic acid normal Continue oral biacarb (4) Acute kidney injury: Code(s): N17.9 - Acute kidney failure, unspecified Status: Acute Assessment and Plan: Creatinine was 2.4 on admission. Creatinine has trended down to 1.1 today. She appears fluid overloaded so will stop IV fluids. Continue to monitor renal function, urine output and electrolytes. Metabolic acidosis noted and oral bicarb added. (5) Pneumonia: Code(s): J18.9 - Pneumonia, unspecified organism Status: Acute Assessment and Plan: KUB 02/20 as outpatient shows linear atelectasis right lung Abd CT 02/24 showed scattered peripheral airspace opacities and nodules in the lungs concern for multifocal pneumonia and septic emboli. CXR 02/26 showed extensive patchy airspace disease worse at the lung bases consistent with edema, atelectasis or pneumonia. Could not exclude ILD. She was weaned to room air. She is using incentive spirometer. Cough is minimal. Repeat Abd CT 03/01 showing moderate bilateral pleural effusions, multifocal PNA and septic emboli. Suspect the source of the pneumonia is from pyelitis and bacteremia. Resolving Add lasix to improve fluid status when able. (6) New onset type 2 diabetes mellitus: Code(s): E11.9 - Type 2 diabetes mellitus without complications Status: Acute Assessment and Plan: A1c 12.3%. The patient's blood glucose was reviewed on 03/02 Glucose remains reasonably well controlled. Patient has undergone education from the dietitian and health educator. Continue AccuCheks covering with sliding scale. Hypoglycem
[2023-03-02] MEDS: MEROPENEM 1 GM/NS 100 ML 1 GM/100 ML BAG IVPB ×2 (17:38→23:25)
[2023-03-02 17:51] LABS: Glucose Point of Care 129 mg/dl (65-105)
[2023-03-02 20:57] VITALS: BP 149/65; PULSE 92; RESP 16; TEMP 37.1; O2SAT 94
[2023-03-02 21:17] LABS: Glucose Point of Care 105 mg/dl (65-105)
[2023-03-03] MEDS: oxyCODONE/ACETAMINOPHEN (*CRX) 5-325 MG TABLET 1 TABLET PO ×5 (01:29→21:15)
[2023-03-03 05:23] VITALS: BP 153/61; PULSE 86; RESP 18; TEMP 37; O2SAT 97
[2023-03-03] MEDS: MEROPENEM 1 GM/NS 100 ML 1 GM/100 ML BAG IVPB ×3 (05:34→21:14)
[2023-03-03] MEDS: traMADol HCL (*CRX) 50 MG TABLET PO (05:34)
[2023-03-03 06:55] LABS: Basophils Absolute Auto 0.1 K/mm3 (0.0-0.1); Basophils Percent Auto 0.5 % (0.2-1.2); Eosinophils Absolute Auto 0.6 K/mm3 (0-0.3); Eosinophils Percent Auto 2.2 % (0-4.4); Hematocrit 26.7 % (37.0-47.0); Hemoglobin 8.3 g/dL (12.0-15.0); Immature Granulocyte Absolute 1.03 K/mm3 (0.00-0.031); Immature Granulocyte Percent A 3.8 % (0-0.5); Lymphocytes Absolute Auto 2.37 K/mm3 (0.9-3.2); Lymphocytes Percent Auto 8.8 % (18.3-44.2); Mean Corpuscular HGB Conc 31.1 g/dl (32-36); Mean Corpuscular Hemoglobin 29.2 pg (26-34); Mean Platelet Volume 9.6 fl (7.4-10.4); Monocytes Absolute Auto 1.5 K/mm3 (0.1-0.6); Monocytes Percent Auto 5.7 % (2.6-8.5); Neutrophils Absolute Auto 21.1 K/mm3 (1.3-6.7); Platelet Count Result 632 k/mm3 (150-375); Red Blood Count 2.84 M/mm3 (4.2-5.4); Red Cell Distribution Width 13.8 % (11.5-14.5); White Blood Count 26.8 K/mm3 (4.5-10.0)
[2023-03-03 07:07] LABS: Alanine Aminotransferase 27 U/L (6-35); Albumin Level 2.6 g/dL (3.5-5.1); Alkaline Phosphatase 268 U/L (38-126); Anion Gap 6 mmol/L (8-16); Aspartate Amino Transferase 44 U/L (14-36); Bilirubin,Total 0.6 mg/dL (0.2-1.3); Blood Urea Nitrogen 15 mg/dL (7-17); Calcium 7.9 mg/dL (8.4-10.2); Carbon Dioxide 21 mmol/L (22-30); Chloride 109 mmol/L (98-107); Estimated CRCL calculation 67 ml/min; Estimated Glomerular Filt Rate 58; Glucose 106 mg/dL (65-110); Magnesium 1.6 mg/dL (1.6-2.3); Potassium 3.6 mmol/L (3.4-5.0); Sodium 136 mmol/L (137-145)
[2023-03-03 07:43] LABS: Glucose Point of Care 93 mg/dl (65-105)
[2023-03-03 08:00] VITALS: O2SAT 97
[2023-03-03] MEDS: SODIUM BICARBONATE TAB 650 MG TABLET PO ×2 (08:42→16:56)
[2023-03-03] MEDS: INSULIN ASPART (*BKC) 100 UNITS/ML SUB-Q ×2 (11:31→16:58)
[2023-03-03 11:34] LABS: Glucose Point of Care 153 mg/dl (65-105)
--- NOTE | 2023-03-03 11:44 | PM.IMPN ---
Progress Note: A&P Assessment and Plan (1) Sepsis: Code(s): A41.9 - Sepsis, unspecified organism Status: Acute Assessment and Plan: Patient with sepsis present on admission with tachycardia and leukocytosis. 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 UCx 02/24 grew mixed genital irish. BCx 02/24 grew Klebsiella pneumoniae in all 4 bottles BCx 02/28 NGTD Patient started on Rocephin and vancomycin. Rocephin switched to meropenem 02/24. Sensitivities return for the Klebsiella and patient was changed back to Rocephin 2g daily 02/27 White count improved until 02/26 and began to worsen 02/27. Chest x-ray shows patchy bilateral airspace disease but overall improved. CT A/P w/wo 03/01 showing: unchanged multifocal PNA and septic emboli Left kidney subcapsular collection c/w hematoma with perinephric gas and urothelial enhancement Right kidney 8mm UPJ stone but no hydronephrosis and multilobulated rim-enhancing fluid fluid collection mid and lower pole Concerning for development of perinephric abscess. Echo showing EF 65-70%, nml diastolic dysfxn with thickened MV but no vegetations. Consider bleeding dyscrasia. Check vWF, , SPEP. -- COVID has been known to cause acquired VWS Changed back to meropenem 03/03 WBC climbed to 28K but stable 26K No fevers Urology following (2) Emphysematous pyelitis: Code(s): N12 - Tubulo-interstitial nephritis, not specified as acute or chronic Status: Acute Assessment and Plan: Patient was having left flank pain and noted to have acute kidney injury. CT abd/pelvis 02/24 wo contrast showed: Acute subcapsular hematoma of the left kidney with evidence of pyelitis. Also gas in the left perinephric fat which may be from infection. There is a nonobstructing right kidney stone and soft tissue in the right perinephric space. Patient started on antibiotics as mentioned above. Repeat CT A/P as above Urology consulted. Appreciate their input. Follow (3) Diabetic ketoacidosis associated with type 2 diabetes mellitus: Code(s): E11.10 - Type 2 diabetes mellitus with ketoacidosis without coma Status: Acute Assessment and Plan: Patient presented with hyperglycemia, nausea and vomiting.? She was found to be in DKA in the ER. She is a new onset DM. -She received IV fluids and started on insulin infusion per DKA protocol -AG closed. She was transitioned to SQ insulin -still with non-anion gap metabolic acidosis but lactic acid normal -serum bicarb better 21 Continue oral bicarb (4) Acute kidney injury: Code(s): N17.9 - Acute kidney failure, unspecified Status: Acute Assessment and Plan: Creatinine was 2.4 on admission. Creatinine has trended down to 1.0 today. She appears fluid overloaded so IV fluids stopped. Continue to monitor renal function, urine output and electrolytes. Continue oral bicarb added. Lasix once (5) Pneumonia: Code(s): J18.9 - Pneumonia, unspecified organism Status: Acute Assessment and Plan: KUB 02/20 as outpatient shows linear atelectasis right lung Abd CT 02/24 showed scattered peripheral airspace opacities and nodules in the lungs concern for multifocal pneumonia and septic emboli. CXR 02/26 showed extensive patchy airspace disease worse at the lung bases consistent with edema, atelectasis or pneumonia. Could not exclude ILD. She was weaned to room air. She is using incentive spirometer. Cough is minimal. Repeat Abd CT 03/01 showing moderate bilateral pleural effusions, multifocal PNA and septic emboli. Suspect the source of the pneumonia is from pyelitis and bacteremia. Resolving Lasix once (6) New onset type 2 diabetes mellitus: Code(s): E11.9 - Type 2 diabetes mellitus without complications Status: Acute Assessment and Plan: A1c 12.3%. The patient's blood glucose was reviewed on 03/02 Glucose remains reasonably well controlled. Patient has un
[2023-03-03] MEDS: FUROSEMIDE INJ 40 MG/4 ML VIAL IV PUSH (13:48)
[2023-03-03] MEDS: MAGNESIUM SULF 2 GM/WATER 50ML 2 GM/50 ML BAG IVPB (13:48)
[2023-03-03 14:00] VITALS: BP 147/65; PULSE 94; RESP 16; TEMP 37.2; O2SAT 94
[2023-03-03 16:52] LABS: Glucose Point of Care 195 mg/dl (65-105)
[2023-03-03 21:40] LABS: Glucose Point of Care 172 mg/dl (65-105)
[2023-03-03 21:53] VITALS: BP 171/67; PULSE 97; RESP 16; TEMP 37.1; O2SAT 94
[2023-03-04] MEDS: oxyCODONE/ACETAMINOPHEN (*CRX) 5-325 MG TABLET 1 TABLET PO ×5 (02:00→20:48)
[2023-03-04 06:00] VITALS: BP 152/70; PULSE 86; RESP 20; TEMP 36.7; O2SAT 96
[2023-03-04] MEDS: MEROPENEM 1 GM/NS 100 ML 1 GM/100 ML BAG IVPB ×3 (06:27→20:47)
[2023-03-04 07:47] LABS: Basophils Absolute Auto 0.1 K/mm3 (0.0-0.1); Basophils Percent Auto 0.5 % (0.2-1.2); Eosinophils Absolute Auto 0.7 K/mm3 (0-0.3); Eosinophils Percent Auto 2.9 % (0-4.4); Hematocrit 25.1 % (37.0-47.0); Hemoglobin 7.8 g/dL (12.0-15.0); Immature Granulocyte Absolute 0.59 K/mm3 (0.00-0.031); Immature Granulocyte Percent A 2.5 % (0-0.5); Lymphocytes Absolute Auto 2.21 K/mm3 (0.9-3.2); Lymphocytes Percent Auto 9.5 % (18.3-44.2); Mean Corpuscular HGB Conc 31.1 g/dl (32-36); Mean Corpuscular Hemoglobin 29.5 pg (26-34); Mean Corpuscular Volume 95.1 fl (80-100); Mean Platelet Volume 9.6 fl (7.4-10.4); Monocytes Absolute Auto 1.4 K/mm3 (0.1-0.6); Neutrophils Absolute Auto 18.3 K/mm3 (1.3-6.7); Neutrophils Percent Auto 78.6 % (45.5-73.1); Platelet Count Result 646 k/mm3 (150-375); Red Blood Count 2.64 M/mm3 (4.2-5.4); White Blood Count 23.3 K/mm3 (4.5-10.0)
[2023-03-04 07:53] LABS: Glucose Point of Care 149 mg/dl (65-105)
[2023-03-04 08:00] LABS: Alanine Aminotransferase 22 U/L (6-35); Albumin Level 2.5 g/dL (3.5-5.1); Alkaline Phosphatase 232 U/L (38-126); Anion Gap 5 mmol/L (8-16); Aspartate Amino Transferase 31 U/L (14-36); Bilirubin,Total 0.6 mg/dL (0.2-1.3); Blood Urea Nitrogen 14 mg/dL (7-17); Calcium 7.6 mg/dL (8.4-10.2); Carbon Dioxide 25 mmol/L (22-30); Chloride 104 mmol/L (98-107); Estimated CRCL calculation 67 ml/min; Estimated Glomerular Filt Rate 58; Glucose 144 mg/dL (65-110); Magnesium 1.8 mg/dL (1.6-2.3); Potassium 3.4 mmol/L (3.4-5.0); Sodium 134 mmol/L (137-145)
[2023-03-04] MEDS: INSULIN GLARGINE (*BKC) 100 UNITS/ML 30 UNITS SUB-Q (08:39)
[2023-03-04] MEDS: INSULIN ASPART (*BKC) 100 UNITS/ML SUB-Q ×4 (08:42→16:56)
[2023-03-04] MEDS: SODIUM BICARBONATE TAB 650 MG TABLET PO ×2 (09:04→16:38)
--- NOTE | 2023-03-04 09:41 | WPDUROPN2 ---
Progress Note: A&P Assessment and Plan (1) Renal hematoma, left: Code(s): S37.012A - Minor contusion of left kidney, initial encounter Status: Acute Assessment and Plan: Has been hemodynamically stable however her white count remains elevated. Recent CT reveals a right perirenal fluid collection possibly abscess. Although she is not febrile the concern is regarding her persistent white count. Have discussed placing a percutaneous drain for culture as well as possible drainage of infection. Hopefully this would also help with her white count improving. She is in agreement at this time. Subjective Subjective Date/Time Seen: 03/04/23 09:41 Principal diagnosis: Sepsis with left kidney bleed and possible right perirenal abscess Interval history: Flora is feeling better however her white count persists at 23,000. Review of Systems Review of Systems: All systems reviewed & are unremarkable except as noted in HPI and below Exam Const: General: cooperative and comfortable Resp: Effort & Inspection: normal respiratory effort Cardio: Rate: regular rate Rhythm: regular rhythm Objective Data Vital Signs Vital Signs: Vital Signs - 24 hr 03/03/23 14:00 03/03/23 21:53 03/04/23 06:00 Temperature 37.2 C 37.1 C 36.7 C Pulse Rate 94 97 86 Respiratory Rate 16 16 20 Blood Pressure 147/65 H 171/67 H 152/70 H Pulse Oximetry 94 94 96 Intake/Output Intake/Output: Intake & Output 03/01/23 03/02/23 03/03/23 03/04/23 23:59 23:59 23:59 23:59 Intake Total 3570 2477 2360 1060 Output Total 1400 1600 Balance 3570 2477 960 -540 Meds/Results Medications: Active Medications Generic Name Dose Route Start Last Admin Trade Name Freq PRN Reason Stop Dose Admin Acetaminophen 650 mg 02/24/23 16:14 03/02/23 08:24 Acetaminophen 325 Mg Tablet PO 650 mg Q4H PRN Administration Mild Pain (1-3) or Fever Dextrose 12.5 gm 02/25/23 01:23 Dextrose 50% 25 Gm/50 Ml Syringe IV PUSH PRN PRN Hypoglycemia Protocol Glucagon 1 mg 02/25/23 01:23 Glucagon For Inj 1 Mg Vial IM PRN PRN Hypoglycemia Protocol Glucose 15 gm 02/25/23 01:23 Glucose Oral Gel 15 Gm Of Glucse In 37.5 Gm Tube PO PRN PRN Hypoglycemia Protocol Dextrose 1,000 mls @ 100 mls/hr 02/25/23 01:23 Dextrose 5% 1,000 Ml IVPB PRN PRN Hypoglycemia Protocol Meropenem 1 gm in 100 mls @ 200 mls/hr 03/02/23 17:00 03/04/23 06:27 IVPB 200 mls/hr Q8HR IVA Administration Insulin Aspart 5 units 02/26/23 08:00 03/04/23 08:42 Insulin Aspart (*Bkc) 100 Units/Ml SUB-Q 5 units TIDWM IVA Administration Insulin Aspart 3 - 6 units 02/28/23 17:00 03/04/23 08:36 Insulin Aspart (*Bkc) 100 Units/Ml SUB-Q Not Given TIDWM [facility] Protocol Insulin Glargine 30 units 02/27/23 09:20 03/04/23 08:39 Insulin Glargine (*Bkc) 100 Units/Ml SUB-Q 30 units QAM IVA Administration Ondansetron HCl 4 mg 02/24/23 16:14 02/24/23 19:23 Ondansetron Inj 4 Mg/2 Ml Vial IV PUSH 4 mg Q4H PRN Administration Nausea Oxycodone/Acetaminophen 1 tablet 03/01/23 16:05 03/04/23 06:27 Oxycodone/Acetaminophen (*Crx) 5-325 Mg Tablet PO 1 tablet Q4H PRN Administration Pain Rated 7-10 Sodium Bicarbonate 650 mg 03/01/23 17:00 03/04/23 09:04 Sodium Bicarbonate Tab 650 Mg Tablet PO 650 mg BID IVA Administration Tramadol HCl 50 mg 02/28/23 12:17 03/03/23 05:34 Tramadol Hcl (*Crx) 50 Mg Tablet PO 50 mg Q8HR PRN Administration Pain Rated 4-6 Radiology Results: ITS Impressions Chest X-Ray 03/01/23 08:57 IMPRESSION: 1. Patchy bilateral airspace opacities with slight improvement, consistent with pneumonia. Abdomen/Pelvis CT 03/01/23 18:41 IMPRESSION: New moderate bilateral pleural effusions. Unchanged multifocal pneumonia and septic emboli. Heterogeneous subcapsular collection about the left kid
[2023-03-04 11:52] LABS: Glucose Point of Care 194 mg/dl (65-105)
--- NOTE | 2023-03-04 12:25 | P.PNIM_ITS ---
Progress Note: A&P Assessment and Plan (1) Sepsis: Code(s): A41.9 - Sepsis, unspecified organism Status: Acute Assessment and Plan: Patient with sepsis present on admission with tachycardia and leukocytosis. Re lated to the pneumonia and emphysematous pyelitis. * UCx 02/24 grew mixed genital irish. * BCx 02/24 grew Klebsiella pneumoniae in all 4 bottles * BCx 02/28 NGTD Patient started on Rocephin and vancomycin. Rocephin switched to meropenem 02/24. Sensitivities return for the Klebsiella and patient was changed back to Rocephin 2g daily 02/27 White count improved until 02/26 and began to worsen 02/27. Chest x-ray shows patchy bilateral airspace disease but overall improved. CT A/P w/wo 03/01 showing: * unchanged multifocal PNA and septic emboli * Left kidney subcapsular collection c/w hematoma with perinephric gas and urothelial enhancement * Right kidney 8mm UPJ stone but no hydronephrosis and multilobulated rim- enhancing fluid fluid collection mid and lower pole Concerning for development of perinephric abscess. Echo showing EF 65-70%, nml diastolic dysfxn with thickened MV but no vegetations. Consider bleeding dyscrasia. Check vWF, , SPEP. 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 CT abd/pelvis 02/24 wo contrast showed: * Acute subcapsular hematoma of the left kidney with evidence of pyelitis. * Also gas in the left perinephric fat which may be from infection. * There is a nonobstructing right kidney stone and soft tissue in the right perinephric space. Patient started on antibiotics as mentioned above. Repeat CT A/P as above Urology consulted. Appreciate their input. Discussed and they recommended nephrostomy tubes placement. Follow (3) Diabetic ketoacidosis associated with type 2 diabetes mellitus: Code(s): E11.10 - Type 2 diabetes mellitus with ketoacidosis without coma Status: Acute Assessment and Plan: Patient presented with hyperglycemia, nausea and vomiting.? She was found to be in DKA in the ER. She is a new onset DM. -She received IV fluids and started on insulin infusion per DKA protocol -AG closed. She was transitioned to SQ insulin -still with non-anion gap metabolic acidosis but lactic acid normal -serum bicarb better 25 Stop oral bicarb (4) Acute kidney injury: Code(s): N17.9 - Acute kidney failure, unspecified Status: Acute Assessment and Plan: Creatinine was 2.4 on admission. Creatinine has trended down to 1.0 today. She appears fluid overloaded so IV fluids stopped. Continue to monitor renal function, urine output and electrolytes. Continue oral bicarb added. Serial Lasix to improve fluid status (5) Pneumonia: Code(s): J18.9 - Pneumonia, unspecified organism Status: Acute Assessment and Plan: KUB 02/20 as outpatient shows linear atelectasis right lung Abd CT 02/24 showed scattered peripheral airspace opacities and nodules in the lungs concern for multifocal pneumonia and septic emboli. CXR 02/26 showed extensive patchy airspace disease worse at the lung bases consistent with edema, atelectasis or pneumonia. Could not exclude ILD. She was weaned to room air. She is using incentive spirometer. Brenda
[2023-03-04 13:24] LABS: Hematocrit 27.9 % (37.0-47.0); Hemoglobin 8.8 g/dL (12.0-15.0)
[2023-03-04 14:00] VITALS: BP 144/56; PULSE 102; RESP 18; TEMP 36.7; O2SAT 95
[2023-03-04 15:46] LABS: Iron 24 ug/dL (37-170)
[2023-03-04 15:57] LABS: Percent Iron Saturation 12 % (20-50)
[2023-03-04 16:44] LABS: Glucose Point of Care 208 mg/dl (65-105)
[2023-03-04] MEDS: FUROSEMIDE INJ 40 MG/4 ML VIAL IV PUSH (16:56)
[2023-03-04 17:09] LABS: Folic Acid 6.8 ng/mL (2.76->20); Vitamin B12 > 1000.0 pg/mL (239-931)
[2023-03-04] MEDS: POTASSIUM CHLORIDE 20 MEQ ER TABLET 40 MEQ PO (17:52)
[2023-03-04] MEDS: ACETAMINOPHEN 325 MG TABLET 650 MG PO (18:59)
[2023-03-04 19:02] LABS: Hematocrit 28.8 % (37.0-47.0)
[2023-03-04 22:00] VITALS: BP 165/64; PULSE 95; RESP 14; TEMP 36.3; O2SAT 92
[2023-03-04 22:11] LABS: Glucose Point of Care 193 mg/dl (65-105)
[2023-03-05] MEDS: oxyCODONE/ACETAMINOPHEN (*CRX) 5-325 MG TABLET 1 TABLET PO ×6 (01:05→21:32)
[2023-03-05 01:47] LABS: Hematocrit 27.4 % (37.0-47.0); Hemoglobin 8.5 g/dL (12.0-15.0)
[2023-03-05] MEDS: MEROPENEM 1 GM/NS 100 ML 1 GM/100 ML BAG IVPB ×3 (05:29→21:32)
[2023-03-05 06:00] VITALS: BP 154/73; PULSE 95; RESP 16; TEMP 37.7; O2SAT 94
[2023-03-05 07:17] LABS: Basophils Absolute Auto 0.1 K/mm3 (0.0-0.1); Basophils Percent Auto 0.5 % (0.2-1.2); Eosinophils Absolute Auto 0.7 K/mm3 (0-0.3); Eosinophils Percent Auto 3.3 % (0-4.4); Hematocrit 24.3 % (37.0-47.0); Hemoglobin 7.8 g/dL (12.0-15.0); Immature Granulocyte Absolute 0.38 K/mm3 (0.00-0.031); Immature Granulocyte Percent A 1.7 % (0-0.5); Lymphocytes Absolute Auto 1.79 K/mm3 (0.9-3.2); Mean Corpuscular HGB Conc 32.1 g/dl (32-36); Mean Corpuscular Hemoglobin 29.8 pg (26-34); Mean Corpuscular Volume 92.7 fl (80-100); Mean Platelet Volume 9.5 fl (7.4-10.4); Monocytes Absolute Auto 1.3 K/mm3 (0.1-0.6); Monocytes Percent Auto 5.6 % (2.6-8.5); Neutrophils Absolute Auto 18.1 K/mm3 (1.3-6.7); Neutrophils Percent Auto 80.9 % (45.5-73.1); Platelet Count Result 707 k/mm3 (150-375); Red Blood Count 2.62 M/mm3 (4.2-5.4); Red Cell Distribution Width 13.9 % (11.5-14.5); White Blood Count 22.3 K/mm3 (4.5-10.0)
[2023-03-05 07:31] LABS: Glucose Point of Care 151 mg/dl (65-105)
[2023-03-05] MEDS: INSULIN ASPART (*BKC) 100 UNITS/ML SUB-Q ×4 (08:47→16:32)
[2023-03-05] MEDS: INSULIN GLARGINE (*BKC) 100 UNITS/ML 30 UNITS SUB-Q (08:48)
[2023-03-05] MEDS: SODIUM BICARBONATE TAB 650 MG TABLET PO ×2 (08:51→16:37)
[2023-03-05] MEDS: FUROSEMIDE INJ 40 MG/4 ML VIAL IV PUSH ×2 (08:52→16:37)
[2023-03-05 10:07] LABS: IFOB Positive Control Positive; Immunochemical Fecal Occult Bl Positive (N)
--- NOTE | 2023-03-05 10:16 | WPDUROPN2 ---
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 Although clinically stable her white count remains elevated. Bilateral percutaneous drains were placed. Her white count has yet to decrease significantly. Will continue to monitor. Hopefully the next white count tomorrow will be improved. (2) Renal hematoma, left: Code(s): S37.012A - Minor contusion of left kidney, initial encounter Status: Acute Assessment and Plan: No intervention warranted for this stable hematoma. It should resolve on its own with time. Subjective Subjective Date/Time Seen: 03/05/23 10:16 Principal diagnosis: Sepsis, perirenal abscess Interval history: Flora is status post bilateral percutaneous drain placement by Interventional Radiology. She again continues to feel well has been afebrile however her white count still remains elevated at 22,000 two thousand today. Review of Systems Review of Systems: All systems reviewed & are unremarkable except as noted in HPI and below Exam Const: General: cooperative and comfortable Resp: Effort & Inspection: normal respiratory effort Cardio: Rate: regular rate Rhythm: regular rhythm Objective Data Vital Signs Vital Signs: Vital Signs - 24 hr 03/04/23 14:00 03/04/23 22:00 03/05/23 06:00 Temperature 36.7 C 36.3 C L 37.7 C H Pulse Rate 102 H 95 95 Respiratory Rate 18 14 16 Blood Pressure 144/56 H 165/64 H 154/73 H Pulse Oximetry 95 92 94 Intake/Output Intake/Output: Intake & Output 03/02/23 03/03/23 03/04/23 03/05/23 23:59 23:59 23:59 23:59 Intake Total 2477 2360 2440 1320 Output Total 1400 1600 60 Balance 2477 504 444 0524 Meds/Results Medications: Active Medications Generic Name Dose Route Start Last Admin Trade Name Freq PRN Reason Stop Dose Admin Acetaminophen 650 mg 02/24/23 16:14 03/04/23 18:59 Acetaminophen 325 Mg Tablet PO 650 mg Q4H PRN Administration Mild Pain (1-3) or Fever Dextrose 12.5 gm 02/25/23 01:23 Dextrose 50% 25 Gm/50 Ml Syringe IV PUSH PRN PRN Hypoglycemia Protocol Furosemide 40 mg 03/04/23 17:00 03/05/23 08:52 Furosemide Inj 40 Mg/4 Ml Vial IV PUSH 40 mg BID IVA Administration Glucagon 1 mg 02/25/23 01:23 Glucagon For Inj 1 Mg Vial IM PRN PRN Hypoglycemia Protocol Glucose 15 gm 02/25/23 01:23 Glucose Oral Gel 15 Gm Of Glucse In 37.5 Gm Tube PO PRN PRN Hypoglycemia Protocol Dextrose 1,000 mls @ 100 mls/hr 02/25/23 01:23 Dextrose 5% 1,000 Ml IVPB PRN PRN Hypoglycemia Protocol Meropenem 1 gm in 100 mls @ 200 mls/hr 03/02/23 17:00 03/05/23 05:59 IVPB Infused Q8HR IVA Infusion Insulin Aspart 5 units 02/26/23 08:00 03/05/23 08:47 Insulin Aspart (*Bkc) 100 Units/Ml SUB-Q 5 units TIDWM IVA Administration Insulin Aspart 3 - 6 units 02/28/23 17:00 03/05/23 08:00 Insulin Aspart (*Bkc) 100 Units/Ml SUB-Q Not Given TIDWM [facility] Protocol Insulin Glargine 30 units 02/27/23 09:20 03/05/23 08:48 Insulin Glargine (*Bkc) 100 Units/Ml SUB-Q 30 units QAM IVA Administration Ondansetron HCl 4 mg 02/24/23 16:14 02/24/23 19:23 Ondansetron Inj 4 Mg/2 Ml Vial IV PUSH 4 mg Q4H PRN Administration Nausea Oxycodone/Acetaminophen 1 tablet 03/01/23 16:05 03/05/23 09:39 Oxycodone/Acetaminophen (*Crx) 5-325 Mg Tablet PO 1 tablet Q4H PRN Administration Pain Rated 7-10 Sodium Bicarbonate 650 mg 03/01/23 17:00 03/05/23 08:51 Sodium Bicarbonate Tab 650 Mg Tablet PO 650 mg BID IVA Administration Tramadol HCl 50 mg 02/28/23 12:17 03/03/23 05:34 Tramadol Hcl (*Crx) 50 Mg Tablet PO 50 mg Q8HR PRN Administration Pain Rated 4-6 Radiology Results: ITS Impres
[2023-03-05 11:17] LABS: Glucose Point of Care 227 mg/dl (65-105)
[2023-03-05 14:00] VITALS: BP 157/78; PULSE 100; RESP 20; TEMP 36.6; O2SAT 95
[2023-03-05] MEDS: VANCOMYCIN 1,250 MG/NS 250 ML 1,250 MG/250 ML BAG 166.67 MG IVPB ×2 (14:47→16:37)
[2023-03-05 16:29] LABS: Glucose Point of Care 117 mg/dl (65-105)
--- NOTE | 2023-03-05 16:50 | PM.IMPN ---
Progress Note: A&P Assessment and Plan (1) Sepsis: Code(s): A41.9 - Sepsis, unspecified organism Status: Acute Assessment and Plan: Patient with sepsis present on admission with tachycardia and leukocytosis. 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 UCx 02/24 grew mixed genital irish. BCx 02/24 grew Klebsiella pneumoniae in all 4 bottles BCx 02/28 NGTD Patient started on Rocephin and vancomycin. Rocephin switched to meropenem 02/24. Sensitivities return for the Klebsiella and patient was changed back to Rocephin 2g daily 02/27 White count improved until 02/26 and began to worsen 02/27. Chest x-ray shows patchy bilateral airspace disease but overall improved. CT A/P w/wo 03/01 showing: unchanged multifocal PNA and septic emboli Left kidney subcapsular collection c/w hematoma with perinephric gas and urothelial enhancement Right kidney 8mm UPJ stone but no hydronephrosis and multilobulated rim-enhancing fluid fluid collection mid and lower pole Concerning for development of perinephric abscess. Echo showing EF 65-70%, nml diastolic dysfxn with thickened MV but no vegetations. Consider bleeding dyscrasia. Check vWF, , SPEP. 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 CT abd/pelvis 02/24 wo contrast showed: Acute subcapsular hematoma of the left kidney with evidence of pyelitis. Also gas in the left perinephric fat which may be from infection. There is a nonobstructing right kidney stone and soft tissue in the right perinephric space. Patient started on antibiotics as mentioned above. Repeat CT A/P as above Urology consulted. Appreciate their input. Discussed and they recommended nephrostomy tubes placement. Follow (3) Diabetic ketoacidosis associated with type 2 diabetes mellitus: Code(s): E11.10 - Type 2 diabetes mellitus with ketoacidosis without coma Status: Acute Assessment and Plan: Patient presented with hyperglycemia, nausea and vomiting.? She was found to be in DKA in the ER. She is a new onset DM. -She received IV fluids and started on insulin infusion per DKA protocol -AG closed. She was transitioned to SQ insulin -still with non-anion gap metabolic acidosis but lactic acid normal -serum bicarb better 25 Stop oral bicarb (4) Acute kidney injury: Code(s): N17.9 - Acute kidney failure, unspecified Status: Acute Assessment and Plan: Creatinine was 2.4 on admission. Creatinine has trended down to 1.0 today. She appears fluid overloaded so IV fluids stopped. Continue to monitor renal function, urine output and electrolytes. Continue oral bicarb added. Serial Lasix to improve fluid status (5) Pneumonia: Code(s): J18.9 - Pneumonia, unspecified organism Status: Acute Assessment and Plan: KUB 02/20 as outpatient shows linear atelectasis right lung Abd CT 02/24 showed scattered peripheral airspace opacities and nodules in the lungs concern for multifocal pneumonia and septic emboli. CXR 02/26 showed extensive patchy airspace disease worse at the lung bases consistent with edema, atelectasis or pneumonia. Could not exclude ILD. She was weaned to room air. She is using incentive spirometer. Cough is minimal. Repeat Abd CT 03/01 showing moderate bilateral pleural effusions, multifocal PNA and septic emboli. Suspect the source of the pneumonia is from pyelitis and bacteremia. Resolving (6) New onset type 2 diabetes mellitus: Code(s): E11.9 - Type [address]
[2023-03-05 20:31] LABS: Glucose Point of Care 170 mg/dl (65-105)
[2023-03-05 21:42] VITALS: BP 153/64; PULSE 87; RESP 20; TEMP 35.8; O2SAT 94
[2023-03-06] MEDS: oxyCODONE/ACETAMINOPHEN (*CRX) 5-325 MG TABLET 1 TABLET PO ×6 (01:27→21:22)
[2023-03-06] MEDS: MEROPENEM 1 GM/NS 100 ML 1 GM/100 ML BAG IVPB ×3 (05:35→21:24)
[2023-03-06 06:00] VITALS: BP 152/72; PULSE 86; RESP 16; TEMP 36.8; O2SAT 94
[2023-03-06 07:41] LABS: Glucose Point of Care 92 mg/dl (65-105)
[2023-03-06 07:46] LABS: Basophils Absolute Auto 0.1 K/mm3 (0.0-0.1); Basophils Percent Auto 0.7 % (0.2-1.2); Eosinophils Absolute Auto 0.7 K/mm3 (0-0.3); Eosinophils Percent Auto 3.6 % (0-4.4); Hematocrit 25.2 % (37.0-47.0); Hemoglobin 7.9 g/dL (12.0-15.0); Immature Granulocyte Absolute 0.23 K/mm3 (0.00-0.031); Immature Granulocyte Percent A 1.1 % (0-0.5); Lymphocytes Absolute Auto 1.87 K/mm3 (0.9-3.2); Lymphocytes Percent Auto 9.3 % (18.3-44.2); Mean Corpuscular HGB Conc 31.3 g/dl (32-36); Mean Corpuscular Hemoglobin 29.6 pg (26-34); Mean Corpuscular Volume 94.4 fl (80-100); Mean Platelet Volume 9.5 fl (7.4-10.4); Monocytes Absolute Auto 1.2 K/mm3 (0.1-0.6); Monocytes Percent Auto 5.8 % (2.6-8.5); Neutrophils Absolute Auto 15.9 K/mm3 (1.3-6.7); Neutrophils Percent Auto 79.5 % (45.5-73.1); Platelet Count Result 757 k/mm3 (150-375); Red Blood Count 2.67 M/mm3 (4.2-5.4); Red Cell Distribution Width 13.8 % (11.5-14.5)
[2023-03-06 07:50] LABS: Estimated CRCL calculation 67 ml/min; Estimated Glomerular Filt Rate 58
[2023-03-06 08:00] VITALS: BP 144/73; PULSE 87; RESP 20; TEMP 36.8; O2SAT 94
[2023-03-06] MEDS: INSULIN ASPART (*BKC) 100 UNITS/ML SUB-Q ×3 (08:56→17:03)
[2023-03-06] MEDS: INSULIN GLARGINE (*BKC) 100 UNITS/ML 30 UNITS SUB-Q (08:57)
[2023-03-06] MEDS: FUROSEMIDE INJ 40 MG/4 ML VIAL IV PUSH ×2 (09:03→17:05)
[2023-03-06] MEDS: SODIUM BICARBONATE TAB 650 MG TABLET PO ×2 (09:03→17:05)
[2023-03-06] MEDS: VANCOMYCIN 1,500 MG/NS 500 ML 1,500 MG/500 ML BAG 250 MG IVPB (09:04)
[2023-03-06 09:44] LABS: Anisocytosis 1+ (NORMAL); Hypochromasia 1+ (NORMAL); Platelet Estimate Increased (Adequate); Schistocytes None Seen (NORMAL); Stomatocytes 1+ (NORMAL)
--- NOTE | 2023-03-06 10:26 | PCNFU ---
Nutrition Follow-Up Complete: Nutrition related knowledge deficit related to diabetic diet as evidenced by need for education, newly diagnosed diabetic Pt comprehension Goal: Pt current nutrition is Diabetic. Nutrition recommendation: continue with current plan of care Last recorded weight is 103 kg. Bowel Motility: +BM 03/05 Labs Reviewed: Hgb:7.9, HCT:25.2, GFR:58 Meds Noted: novolog, lantus, KCL Skin: WNL Additional Notes: Pt continues on a diabetic diet, intake good at 75-100% of meals. Pt has been followed up with diabetic educators as well. Glucose fairly well controlled. Monitor any further nutrition education needs, intake, wt, labs. Follow up in 7 days.
[2023-03-06 11:51] LABS: Glucose Point of Care 149 mg/dl (65-105)
--- NOTE | 2023-03-06 13:29 | PM.IMPN ---
Progress Note: A&P Assessment and Plan (1) Sepsis: Code(s): A41.9 - Sepsis, unspecified organism Status: Acute Assessment and Plan: Patient with sepsis present on admission with tachycardia and leukocytosis. 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 UCx 02/24 grew mixed genital riish. BCx 02/24 grew Klebsiella pneumoniae in all 4 bottles BCx 02/28 NGTD Patient started on Rocephin and vancomycin. Rocephin switched to meropenem 02/24. Sensitivities return for the Klebsiella and patient was changed back to Rocephin 2g daily 02/27 White count improved until 02/26 and began to worsen 02/27. Chest x-ray shows patchy bilateral airspace disease but overall improved. CT A/P w/wo 03/01 showing: unchanged multifocal PNA and septic emboli Left kidney subcapsular collection c/w hematoma with perinephric gas and urothelial enhancement Right kidney 8mm UPJ stone but no hydronephrosis and multilobulated rim-enhancing fluid fluid collection mid and lower pole Concerning for development of perinephric abscess. Echo showing EF 65-70%, nml diastolic dysfxn with thickened MV but no vegetations. Consider bleeding dyscrasia. Check vWF, , SPEP. 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 CT abd/pelvis 02/24 wo contrast showed: Acute subcapsular hematoma of the left kidney with evidence of pyelitis. Also gas in the left perinephric fat which may be from infection. There is a nonobstructing right kidney stone and soft tissue in the right perinephric space. Patient started on antibiotics as mentioned above. Repeat CT A/P as above Urology consulted. Appreciate their input. B/L nephrostomy tubes placement 03/04 (3) Diabetic ketoacidosis associated with type 2 diabetes mellitus: Code(s): E11.10 - Type 2 diabetes mellitus with ketoacidosis without coma Status: Acute Assessment and Plan: Patient presented with hyperglycemia, nausea and vomiting.? She was found to be in DKA in the ER. She is a new onset DM. -She received IV fluids and started on insulin infusion per DKA protocol -AG closed. She was transitioned to SQ insulin -still with non-anion gap metabolic acidosis but lactic acid normal -serum bicarb better 25 Stop oral bicarb (4) Acute kidney injury: Code(s): N17.9 - Acute kidney failure, unspecified Status: Acute Assessment and Plan: Creatinine was 2.4 on admission. Creatinine has trended down to 1.0 today. She appears fluid overloaded so IV fluids stopped. Continue to monitor renal function, urine output and electrolytes. Continue oral bicarb added. Serial Lasix to improve fluid status (5) Pneumonia: Code(s): J18.9 - Pneumonia, unspecified organism Status: Acute Assessment and Plan: KUB 02/20 as outpatient shows linear atelectasis right lung Abd CT 02/24 showed scattered peripheral airspace opacities and nodules in the lungs concern for multifocal pneumonia and septic emboli. CXR 02/26 showed extensive patchy airspace disease worse at the lung bases consistent with edema, atelectasis or pneumonia. Could not exclude ILD. She was weaned to room air. She is using incentive spirometer. Cough is minimal. Repeat Abd CT 03/01 showing moderate bilateral pleural effusions, multifocal PNA and septic emboli. Suspect the source of the pneumonia is from pyelitis and bacteremia. Resolving (6) New onset type 2 diabetes mellitus: Code(s): E11.9 - Type 2 diabetes mellitu
[2023-03-06 16:00] VITALS: BP 170/58; PULSE 101; RESP 18; TEMP 36.9; O2SAT 100
[2023-03-06 16:54] LABS: Glucose Point of Care 111 mg/dl (65-105)
[2023-03-06 18:33] LABS: Alanine Aminotransferase 20 U/L (6-35); Albumin Level 2.9 g/dL (3.5-5.1); Alkaline Phosphatase 214 U/L (38-126); Anion Gap 5 mmol/L (8-16); Aspartate Amino Transferase 36 U/L (14-36); Bilirubin,Total 0.6 mg/dL (0.2-1.3); Blood Urea Nitrogen 13 mg/dL (7-17); Calcium 7.8 mg/dL (8.4-10.2); Carbon Dioxide 33 mmol/L (22-30); Chloride 96 mmol/L (98-107); Estimated CRCL calculation 67 ml/min; Estimated Glomerular Filt Rate 58; Glucose 142 mg/dL (65-110); Potassium 3.3 mmol/L (3.4-5.0); Sodium 134 mmol/L (137-145)
[2023-03-06 20:10] VITALS: BP 162/63; PULSE 95; RESP 16; TEMP 36.6; O2SAT 93
[2023-03-06 22:10] LABS: Glucose Point of Care 111 mg/dl (65-105)
[2023-03-07] MEDS: oxyCODONE/ACETAMINOPHEN (*CRX) 5-325 MG TABLET 1 TABLET PO ×6 (01:30→21:44)
[2023-03-07 03:01] LABS: Alanine Aminotransferase 17 U/L (6-35); Albumin Level 2.5 g/dL (3.5-5.1); Alkaline Phosphatase 173 U/L (38-126); Anion Gap 3 mmol/L (8-16); Aspartate Amino Transferase 29 U/L (14-36); Bilirubin,Total 0.5 mg/dL (0.2-1.3); Blood Urea Nitrogen 12 mg/dL (7-17); Calcium 7.6 mg/dL (8.4-10.2); Carbon Dioxide 33 mmol/L (22-30); Chloride 97 mmol/L (98-107); Estimated CRCL calculation 67 ml/min; Estimated Glomerular Filt Rate 58; Glucose 99 mg/dL (65-110); Potassium 3.1 mmol/L (3.4-5.0); Sodium 133 mmol/L (137-145); Vancomycin Trough 17.3 ug/mL (10.0-20.0)
[2023-03-07 03:02] LABS: Basophils Absolute Auto 0.2 K/mm3 (0.0-0.1); Basophils Percent Auto 0.9 % (0.2-1.2); Eosinophils Absolute Auto 0.6 K/mm3 (0-0.3); Eosinophils Percent Auto 3.4 % (0-4.4); Hematocrit 23.6 % (37.0-47.0); Hemoglobin 7.3 g/dL (12.0-15.0); Immature Granulocyte Absolute 0.16 K/mm3 (0.00-0.031); Immature Granulocyte Percent A 0.9 % (0-0.5); Lymphocytes Absolute Auto 2.57 K/mm3 (0.9-3.2); Lymphocytes Percent Auto 13.7 % (18.3-44.2); Mean Corpuscular HGB Conc 30.9 g/dl (32-36); Mean Corpuscular Hemoglobin 29.2 pg (26-34); Mean Corpuscular Volume 94.4 fl (80-100); Mean Platelet Volume 9.5 fl (7.4-10.4); Monocytes Absolute Auto 1.3 K/mm3 (0.1-0.6); Neutrophils Percent Auto 74.1 % (45.5-73.1); Platelet Count Result 653 k/mm3 (150-375); Red Cell Distribution Width 13.6 % (11.5-14.5); White Blood Count 18.8 K/mm3 (4.5-10.0)
[2023-03-07] MEDS: VANCOMYCIN 1,500 MG/NS 500 ML 1,500 MG/500 ML BAG 250 MG IVPB ×2 (04:10→21:43)
[2023-03-07 05:00] VITALS: BP 162/71; PULSE 81; RESP 16; TEMP 36.5; O2SAT 95
[2023-03-07] MEDS: MEROPENEM 1 GM/NS 100 ML 1 GM/100 ML BAG IVPB ×3 (06:13→20:46)
--- NOTE | 2023-03-07 07:27 | WPDUROPN2 ---
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 Although clinically stable her white count remains elevated. Bilateral percutaneous drains were placed. WBC improved today with drainage. Will plan to re-image kidneys prior to drain removal. (2) Renal hematoma, left: Code(s): S37.012A - Minor contusion of left kidney, initial encounter Status: Acute Assessment and Plan: No intervention warranted for this stable hematoma. It should resolve on its own with time. Subjective Subjective Date/Time Seen: 03/07/23 07:27 Interval history: Comfortable, tolerating bilat. drains Review of Systems Cardiovascular: Cardiovascular: Denies chest pain, Denies lightheadedness, Denies palpitations and Denies dyspnea Respiratory: Respiratory: Denies dyspnea Gastrointestinal: Gastrointestinal: Denies diarrhea, Denies nausea and Denies vomiting Genitourinary: Genitourinary: Denies hematuria and Denies dysuria Endocrine: Endocrine: Denies palpitations Exam Const: General: no acute distress Resp: Effort & Inspection: normal respiratory effort GI: Inspection: normal to inspection (bilat. flank suction drains with scant serous drainage) and non-distended GI Palp: No abdominal tenderness and No Guarding due to palpation present (GI) Auscultation: normal bowel sounds Objective Data Vital Signs Vital Signs: Vital Signs - 24 hr 03/06/23 08:00 03/06/23 16:00 03/06/23 20:10 Temperature 98.3 F 98.5 F 97.9 F Pulse Rate 87 101 H 95 Respiratory Rate 20 18 16 Blood Pressure 144/73 H 170/58 H 162/63 H Pulse Oximetry 94 100 93 Intake/Output Intake/Output: Intake & Output 03/04/23 03/05/23 03/06/23 03/07/23 23:59 23:59 23:59 23:59 Intake Total 2440 2500 2810 600 Output Total 1600 100 40 13 Balance 840 2400 2770 587 Meds/Results Medications: Active Medications Generic Name Dose Route Start Last Admin Trade Name Freq PRN Reason Stop Dose Admin Acetaminophen 650 mg 02/24/23 16:14 03/04/23 18:59 Acetaminophen 325 Mg Tablet PO 650 mg Q4H PRN Administration Mild Pain (1-3) or Fever Dextrose 12.5 gm 02/25/23 01:23 Dextrose 50% 25 Gm/50 Ml Syringe IV PUSH PRN PRN Hypoglycemia Protocol Furosemide 40 mg 03/04/23 17:00 03/06/23 17:05 Furosemide Inj 40 Mg/4 Ml Vial IV PUSH 40 mg BID IVA Administration Glucagon 1 mg 02/25/23 01:23 Glucagon For Inj 1 Mg Vial IM PRN PRN Hypoglycemia Protocol Glucose 15 gm 02/25/23 01:23 Glucose Oral Gel 15 Gm Of Glucse In 37.5 Gm Tube PO PRN PRN Hypoglycemia Protocol Dextrose 1,000 mls @ 100 mls/hr 02/25/23 01:23 Dextrose 5% 1,000 Ml IVPB PRN PRN Hypoglycemia Protocol Meropenem 1 gm in 100 mls @ 200 mls/hr 03/02/23 17:00 03/07/23 07:13 IVPB Infused Q8HR IVA Infusion Vancomycin HCl 1,500 mg in 500 mls @ 250 mls/hr 03/06/23 09:00 03/07/23 07:04 Vancomycin 1,500 Mg/Ns 500 Ml IVPB Infused Q18H IAV Infusion Insulin Aspart 5 units 02/26/23 08:00 03/06/23 17:03 Insulin Aspart (*Bkc) 100 Units/Ml SUB-Q 5 units TIDWM IVA Administration Insulin Aspart 3 - 6 units 02/28/23 17:00 03/06/23 16:58 Insulin Aspart (*Bkc) 100 Units/Ml SUB-Q Not Given TIDWM [facility] Protocol Insulin Glargine 30 units 02/27/23 09:20 03/06/23 08:57 Insulin Glargine (*Bkc) 100 Units/Ml SUB-Q 30 units QAM IVA Administration Ondansetron HCl 4 mg 02/24/23 16:14 02/24/23 19:23 Ondansetron Inj 4 Mg/2 Ml Vial IV PUSH 4 mg Q4H PRN Administration Nausea Oxycodone/Acetaminophen 1 tablet 03/01/23 16:05 03/07/23 05:22 Oxycodone/Acetaminophen (*Crx) 5-325 Mg Tablet PO 1 tablet Q4H PRN Administration Pain Rated 7-10 Sodium Bicarbonate
[2023-03-07] MEDS: traMADol HCL (*CRX) 50 MG TABLET PO (08:23)
[2023-03-07] MEDS: SODIUM BICARBONATE TAB 650 MG TABLET PO ×2 (08:25→17:40)
[2023-03-07] MEDS: INSULIN ASPART (*BKC) 100 UNITS/ML SUB-Q ×3 (08:25→17:36)
[2023-03-07] MEDS: INSULIN GLARGINE (*BKC) 100 UNITS/ML 30 UNITS SUB-Q (08:27)
[2023-03-07 08:39] LABS: Glucose Point of Care 93 mg/dl (65-105)
[2023-03-07 09:15] LABS: von Willebrand Factor Ag 413 % (50-217)
[2023-03-07 11:00] VITALS: BMI 40.2
[2023-03-07 11:39] LABS: Glucose Point of Care 107 mg/dl (65-105)
[2023-03-07] MEDS: polyethylene glycoL 3350 17 GM POWD.PACK PO (12:07)
[2023-03-07] MEDS: FUROSEMIDE INJ 40 MG/4 ML VIAL IV PUSH ×2 (13:35→17:36)
--- NOTE | 2023-03-07 14:19 | PM.IMPN ---
Progress Note: A&P Assessment and Plan (1) Sepsis: Code(s): A41.9 - Sepsis, unspecified organism Status: Acute Assessment and Plan: Patient with sepsis present on admission with tachycardia and leukocytosis. 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 UCx 02/24 grew mixed genital irish. BCx 02/24 grew Klebsiella pneumoniae in all 4 bottles BCx 02/28 NGTD Patient started on Rocephin and vancomycin. Rocephin switched to meropenem 02/24. Sensitivities return for the Klebsiella and patient was changed back to Rocephin 2g daily 02/27 White count improved until 02/26 and began to worsen 02/27. Chest x-ray shows patchy bilateral airspace disease but overall improved. CT A/P w/wo 03/01 showing: unchanged multifocal PNA and septic emboli Left kidney subcapsular collection c/w hematoma with perinephric gas and urothelial enhancement Right kidney 8mm UPJ stone but no hydronephrosis and multilobulated rim-enhancing fluid fluid collection mid and lower pole Concerning for development of perinephric abscess. Echo showing EF 65-70%, nml diastolic dysfxn with thickened MV but no vegetations. Consider bleeding dyscrasia. Check vWF, , SPEP. 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 CT abd/pelvis 02/24 wo contrast showed: Acute subcapsular hematoma of the left kidney with evidence of pyelitis. Also gas in the left perinephric fat which may be from infection. There is a nonobstructing right kidney stone and soft tissue in the right perinephric space. Patient started on antibiotics as mentioned above. Repeat CT A/P as above Urology consulted. Appreciate their input. B/L nephrostomy tubes placement 03/04 (3) Diabetic ketoacidosis associated with type 2 diabetes mellitus: Code(s): E11.10 - Type 2 diabetes mellitus with ketoacidosis without coma Status: Acute Assessment and Plan: Patient presented with hyperglycemia, nausea and vomiting.? She was found to be in DKA in the ER. She is a new onset DM. -She received IV fluids and started on insulin infusion per DKA protocol -AG closed. She was transitioned to SQ insulin -still with non-anion gap metabolic acidosis but lactic acid normal -serum bicarb better 25 Stop oral bicarb (4) Acute kidney injury: Code(s): N17.9 - Acute kidney failure, unspecified Status: Acute Assessment and Plan: Creatinine was 2.4 on admission. Creatinine has trended down to 1.0 today. She appears fluid overloaded so IV fluids stopped. Continue to monitor renal function, urine output and electrolytes. Continue oral bicarb added. Serial Lasix to improve fluid status (5) Pneumonia: Code(s): J18.9 - Pneumonia, unspecified organism Status: Acute Assessment and Plan: KUB 02/20 as outpatient shows linear atelectasis right lung Abd CT 02/24 showed scattered peripheral airspace opacities and nodules in the lungs concern for multifocal pneumonia and septic emboli. CXR 02/26 showed extensive patchy airspace disease worse at the lung bases consistent with edema, atelectasis or pneumonia. Could not exclude ILD. She was weaned to room air. She is using incentive spirometer. Cough is minimal. Repeat Abd CT 03/01 showing moderate bilateral pleural effusions, multifocal PNA and septic emboli. Suspect the source of the pneumonia is from pyelitis and bacteremia. Resolving (6) New onset typ
[2023-03-07 16:00] VITALS: BP 154/70; PULSE 89; RESP 18; TEMP 36.8; O2SAT 94
[2023-03-07 17:06] LABS: Glucose Point of Care 99 mg/dl (65-105)
[2023-03-07 19:31] LABS: Glucose Point of Care 216 mg/dl (65-105)
[2023-03-07 22:06] VITALS: BP 120/83; PULSE 97; RESP 18; TEMP 36.8; O2SAT 93
[2023-03-08] MEDS: oxyCODONE/ACETAMINOPHEN (*CRX) 5-325 MG TABLET 1 TABLET PO ×6 (01:55→23:59)
[2023-03-08] MEDS: MEROPENEM 1 GM/NS 100 ML 1 GM/100 ML BAG IVPB ×2 (05:45→13:33)
[2023-03-08 06:15] VITALS: BP 125/87; PULSE 91; RESP 18; TEMP 36.6; O2SAT 93
[2023-03-08 06:43] LABS: Albumin 2.1 g/dL (3.8-4.8); Alpha 1 Globulin 0.7 g/dL (0.2-0.3); Beta 1 Globulin 0.5 g/dL (0.4-0.6); Gamma Globulin 1.3 g/dL (0.8-1.7); Protein, Total 6.1 g/dL (6.1-8.1)
[2023-03-08 06:56] LABS: Basophils Absolute Auto 0.2 K/mm3 (0.0-0.1); Basophils Percent Auto 0.9 % (0.2-1.2); Eosinophils Absolute Auto 0.7 K/mm3 (0-0.3); Eosinophils Percent Auto 4.2 % (0-4.4); Hematocrit 26.3 % (37.0-47.0); Hemoglobin 8.1 g/dL (12.0-15.0); Immature Granulocyte Absolute 0.14 K/mm3 (0.00-0.031); Immature Granulocyte Percent A 0.9 % (0-0.5); Lymphocytes Absolute Auto 1.69 K/mm3 (0.9-3.2); Lymphocytes Percent Auto 10.5 % (18.3-44.2); Mean Corpuscular HGB Conc 30.8 g/dl (32-36); Mean Corpuscular Hemoglobin 29.2 pg (26-34); Mean Corpuscular Volume 94.9 fl (80-100); Mean Platelet Volume 9.4 fl (7.4-10.4); Monocytes Absolute Auto 0.9 K/mm3 (0.1-0.6); Monocytes Percent Auto 5.4 % (2.6-8.5); Neutrophils Absolute Auto 12.6 K/mm3 (1.3-6.7); Neutrophils Percent Auto 78.1 % (45.5-73.1); Platelet Count Result 720 k/mm3 (150-375); Red Blood Count 2.77 M/mm3 (4.2-5.4); Red Cell Distribution Width 13.6 % (11.5-14.5); White Blood Count 16.2 K/mm3 (4.5-10.0)
[2023-03-08 07:16] LABS: Alanine Aminotransferase 18 U/L (6-35); Albumin Level 2.7 g/dL (3.5-5.1); Alkaline Phosphatase 180 U/L (38-126); Anion Gap 4 mmol/L (8-16); Aspartate Amino Transferase 31 U/L (14-36); Bilirubin,Total 0.6 mg/dL (0.2-1.3); Blood Urea Nitrogen 12 mg/dL (7-17); Calcium 7.7 mg/dL (8.4-10.2); Carbon Dioxide 34 mmol/L (22-30); Chloride 97 mmol/L (98-107); Estimated CRCL calculation 67 ml/min; Estimated Glomerular Filt Rate 58; Glucose 124 mg/dL (65-110); Potassium 3.3 mmol/L (3.4-5.0); Sodium 135 mmol/L (137-145)
[2023-03-08 08:05] LABS: Glucose Point of Care 110 mg/dl (65-105)
[2023-03-08] MEDS: INSULIN ASPART (*BKC) 100 UNITS/ML SUB-Q ×3 (08:31→16:52)
[2023-03-08] MEDS: INSULIN GLARGINE (*BKC) 100 UNITS/ML 30 UNITS SUB-Q (08:31)
[2023-03-08] MEDS: FUROSEMIDE INJ 40 MG/4 ML VIAL IV PUSH (08:31)
[2023-03-08] MEDS: polyethylene glycoL 3350 17 GM POWD.PACK PO (08:31)
[2023-03-08] MEDS: SODIUM BICARBONATE TAB 650 MG TABLET PO ×2 (08:31→16:53)
[2023-03-08 11:19] LABS: Glucose Point of Care 160 mg/dl (65-105)
[2023-03-08 14:00] VITALS: BP 163/65; PULSE 90; RESP 18; TEMP 36.7; O2SAT 95
[2023-03-08] MEDS: VANCOMYCIN 1,500 MG/NS 500 ML 1,500 MG/500 ML BAG 250 MG IVPB (14:12)
--- NOTE | 2023-03-08 15:38 | PM.IMPN ---
Progress Note: A&P Assessment and Plan (1) Sepsis: Code(s): A41.9 - Sepsis, unspecified organism Status: Acute Assessment and Plan: Patient with sepsis present on admission with tachycardia and leukocytosis. 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 UCx 02/24 grew mixed genital irish. BCx 02/24 grew Klebsiella pneumoniae in all 4 bottles BCx 02/28 NGTD Patient started on Rocephin and vancomycin. Rocephin switched to meropenem 02/24. Sensitivities return for the Klebsiella and patient was changed back to Rocephin 2g daily 02/27 White count improved until 02/26 and began to worsen 02/27. Chest x-ray shows patchy bilateral airspace disease but overall improved. CT A/P w/wo 03/01 showing: unchanged multifocal PNA and septic emboli Left kidney subcapsular collection c/w hematoma with perinephric gas and urothelial enhancement Right kidney 8mm UPJ stone but no hydronephrosis and multilobulated rim-enhancing fluid fluid collection mid and lower pole Concerning for development of perinephric abscess. Echo showing EF 65-70%, nml diastolic dysfxn with thickened MV but no vegetations. Consider bleeding dyscrasia. Check vWF, NAA, SPEP. 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 CT abd/pelvis 02/24 wo contrast showed: Acute subcapsular hematoma of the left kidney with evidence of pyelitis. Also gas in the left perinephric fat which may be from infection. There is a nonobstructing right kidney stone and soft tissue in the right perinephric space. Patient started on antibiotics as mentioned above. Repeat CT A/P as above Urology consulted. Appreciate their input. B/L nephrostomy tubes placement 03/04 03/08: re-consult urology to remove tubes prior to d/c, planning on Saturday 03/10 (3) Diabetic ketoacidosis associated with type 2 diabetes mellitus: Code(s): E11.10 - Type 2 diabetes mellitus with ketoacidosis without coma Status: Acute Assessment and Plan: Patient presented with hyperglycemia, nausea and vomiting.? She was found to be in DKA in the ER. She is a new onset DM. -She received IV fluids and started on insulin infusion per DKA protocol -AG closed. She was transitioned to SQ insulin -still with non-anion gap metabolic acidosis but lactic acid normal -serum bicarb better 25 Stop oral bicarb (4) Acute kidney injury: Code(s): N17.9 - Acute kidney failure, unspecified Status: Acute Assessment and Plan: Creatinine was 2.4 on admission. Creatinine has trended down to 1.0 today. She appears fluid overloaded so IV fluids stopped. Continue to monitor renal function, urine output and electrolytes. Continue oral bicarb added. Serial Lasix to improve fluid status (5) Pneumonia: Code(s): J18.9 - Pneumonia, unspecified organism Status: Acute Assessment and Plan: KUB 02/20 as outpatient shows linear atelectasis right lung Abd CT 02/24 showed scattered peripheral airspace opacities and nodules in the lungs concern for multifocal pneumonia and septic emboli. CXR 02/26 showed extensive patchy airspace disease worse at the lung bases consistent with edema, atelectasis or pneumonia. Could not exclude ILD. She was weaned to room air. She is usi
[2023-03-08 16:42] LABS: Glucose Point of Care 114 mg/dl (65-105)
[2023-03-08] MEDS: AMOXICILLIN/CLAVULANATE K 875-125 MG TAB 1 TABLET PO ×2 (16:52→23:58)
[2023-03-08] MEDS: BISACODYL 5 MG TABLET EC PO (16:52)
[2023-03-08 20:21] LABS: Glucose Point of Care 165 mg/dl (65-105)
[2023-03-08] MEDS: MELATONIN 5 MG TABLET PO (20:58)
[2023-03-08] MEDS: DOXYCYCLINE HYCLATE 100 MG TABLET PO (20:59)
[2023-03-08 22:00] VITALS: BP 148/64; PULSE 93; RESP 21; TEMP 37; O2SAT 91
[2023-03-08] MEDS: traMADol HCL (*CRX) 50 MG TABLET PO (23:58)
[2023-03-09 02:48] LABS: Creatinine, Random Urine 65 mg/dL (20-275); Total Protein/Creatinine Ratio 1369 mg/g creat (24-184)
[2023-03-09 05:03] VITALS: BP 147/61; PULSE 86; RESP 20; TEMP 36.8; O2SAT 94
[2023-03-09] MEDS: oxyCODONE/ACETAMINOPHEN (*CRX) 5-325 MG TABLET 1 TABLET PO ×4 (05:47→18:16)
[2023-03-09 06:41] LABS: Basophils Absolute Auto 0.2 K/mm3 (0.0-0.1); Basophils Percent Auto 1.1 % (0.2-1.2); Eosinophils Absolute Auto 1.2 K/mm3 (0-0.3); Eosinophils Percent Auto 7.8 % (0-4.4); Hematocrit 25.5 % (37.0-47.0); Hemoglobin 7.6 g/dL (12.0-15.0); Immature Granulocyte Absolute 0.12 K/mm3 (0.00-0.031); Immature Granulocyte Percent A 0.8 % (0-0.5); Lymphocytes Percent Auto 12.3 % (18.3-44.2); Mean Corpuscular HGB Conc 29.8 g/dl (32-36); Mean Corpuscular Hemoglobin 28.3 pg (26-34); Mean Corpuscular Volume 94.8 fl (80-100); Mean Platelet Volume 9.3 fl (7.4-10.4); Monocytes Percent Auto 6.5 % (2.6-8.5); Neutrophils Percent Auto 71.5 % (45.5-73.1); Platelet Count Result 674 k/mm3 (150-375); Red Blood Count 2.69 M/mm3 (4.2-5.4); Red Cell Distribution Width 13.6 % (11.5-14.5); White Blood Count 15.4 K/mm3 (4.5-10.0)
[2023-03-09 06:50] LABS: Alanine Aminotransferase 18 U/L (6-35); Albumin Level 2.7 g/dL (3.5-5.1); Alkaline Phosphatase 170 U/L (38-126); Anion Gap 7 mmol/L (8-16); Aspartate Amino Transferase 32 U/L (14-36); Bilirubin,Total 0.5 mg/dL (0.2-1.3); Blood Urea Nitrogen 11 mg/dL (7-17); Carbon Dioxide 32 mmol/L (22-30); Chloride 97 mmol/L (98-107); Estimated CRCL calculation 73 ml/min; Estimated Glomerular Filt Rate > 60; Glucose 115 mg/dL (65-110); Potassium 3.5 mmol/L (3.4-5.0); Sodium 136 mmol/L (137-145)
[2023-03-09 07:36] LABS: Hypochromasia 1+ (NORMAL); Platelet Estimate Increased (Adequate); Schistocytes None Seen (NORMAL)
[2023-03-09 08:00] VITALS: PULSE 86; RESP 20; O2SAT 94
[2023-03-09 08:31] LABS: Glucose Point of Care 115 mg/dl (65-105)
[2023-03-09] MEDS: polyethylene glycoL 3350 17 GM POWD.PACK PO (09:24)
[2023-03-09] MEDS: BISACODYL 5 MG TABLET EC PO (09:24)
[2023-03-09] MEDS: FUROSEMIDE 20 MG TABLET 60 MG PO (09:24)
[2023-03-09] MEDS: SODIUM BICARBONATE TAB 650 MG TABLET PO ×2 (09:24→17:37)
[2023-03-09] MEDS: AMOXICILLIN/CLAVULANATE K 875-125 MG TAB 1 TABLET PO ×3 (09:25→19:17)
[2023-03-09] MEDS: DOXYCYCLINE HYCLATE 100 MG TABLET PO ×2 (09:25→19:17)
[2023-03-09] MEDS: INSULIN ASPART (*BKC) 100 UNITS/ML SUB-Q ×2 (09:32→14:08)
[2023-03-09] MEDS: INSULIN GLARGINE (*BKC) 100 UNITS/ML 30 UNITS SUB-Q (09:33)
[2023-03-09 12:06] LABS: Glucose Point of Care 171 mg/dl (65-105)
--- NOTE | 2023-03-09 14:46 | PM.IMPN ---
Progress Note: A&P Assessment and Plan (1) Sepsis: Code(s): A41.9 - Sepsis, unspecified organism Status: Acute Assessment and Plan: Patient with sepsis present on admission with tachycardia and leukocytosis. 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 UCx 02/24 grew mixed genital irish. BCx 02/24 grew Klebsiella pneumoniae in all 4 bottles BCx 02/28 NGTD Patient started on Rocephin and vancomycin. Rocephin switched to meropenem 02/24. Sensitivities return for the Klebsiella and patient was changed back to Rocephin 2g daily 02/27 White count improved until 02/26 and began to worsen 02/27. Chest x-ray shows patchy bilateral airspace disease but overall improved. CT A/P w/wo 03/01 showing: unchanged multifocal PNA and septic emboli Left kidney subcapsular collection c/w hematoma with perinephric gas and urothelial enhancement Right kidney 8mm UPJ stone but no hydronephrosis and multilobulated rim-enhancing fluid fluid collection mid and lower pole Concerning for development of perinephric abscess. Echo showing EF 65-70%, nml diastolic dysfxn with thickened MV but no vegetations. Consider bleeding dyscrasia. Check vWF, , SPEP. 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 CT abd/pelvis 02/24 wo contrast showed: Acute subcapsular hematoma of the left kidney with evidence of pyelitis. Also gas in the left perinephric fat which may be from infection. There is a nonobstructing right kidney stone and soft tissue in the right perinephric space. Patient started on antibiotics as mentioned above. Repeat CT A/P as above Urology consulted. Appreciate their input. B/L nephrostomy tubes placement 03/04, f/u outpatient for removal (3) Diabetic ketoacidosis associated with type 2 diabetes mellitus: Code(s): E11.10 - Type 2 diabetes mellitus with ketoacidosis without coma Status: Acute Assessment and Plan: Patient presented with hyperglycemia, nausea and vomiting.? She was found to be in DKA in the ER. She is a new onset DM. -She received IV fluids and started on insulin infusion per DKA protocol -AG closed. She was transitioned to SQ insulin -still with non-anion gap metabolic acidosis but lactic acid normal -serum bicarb better 25 Stop oral bicarb (4) Acute kidney injury: Code(s): N17.9 - Acute kidney failure, unspecified Status: Acute Assessment and Plan: Creatinine was 2.4 on admission. Creatinine has trended down to 1.0 today. She appears fluid overloaded so IV fluids stopped. Continue to monitor renal function, urine output and electrolytes. Continue oral bicarb added. Serial Lasix to improve fluid status (5) Pneumonia: Code(s): J18.9 - Pneumonia, unspecified organism Status: Acute Assessment and Plan: KUB 02/20 as outpatient shows linear atelectasis right lung Abd CT 02/24 showed scattered peripheral airspace opacities and nodules in the lungs concern for multifocal pneumonia and septic emboli. CXR 02/26 showed extensive patchy airspace disease worse at the lung bases consistent with edema, atelectasis or pneumonia. Could not exclude ILD. She was weaned to room air. She is using incentive
[2023-03-09 16:25] LABS: Basophils Absolute Auto 0.2 K/mm3 (0.0-0.1); Basophils Percent Auto 1.4 % (0.2-1.2); Eosinophils Percent Auto 6.6 % (0-4.4); Hematocrit 26.5 % (37.0-47.0); Hemoglobin 7.8 g/dL (12.0-15.0); Immature Granulocyte Absolute 0.09 K/mm3 (0.00-0.031); Immature Granulocyte Percent A 0.6 % (0-0.5); Lymphocytes Absolute Auto 2.45 K/mm3 (0.9-3.2); Mean Corpuscular HGB Conc 29.4 g/dl (32-36); Mean Corpuscular Hemoglobin 28.8 pg (26-34); Mean Corpuscular Volume 97.8 fl (80-100); Mean Platelet Volume 9.4 fl (7.4-10.4); Monocytes Absolute Auto 1.1 K/mm3 (0.1-0.6); Monocytes Percent Auto 7.4 % (2.6-8.5); Neutrophils Absolute Auto 10.4 K/mm3 (1.3-6.7); Platelet Count Result 660 k/mm3 (150-375); Red Blood Count 2.71 M/mm3 (4.2-5.4); Red Cell Distribution Width 13.7 % (11.5-14.5); White Blood Count 15.3 K/mm3 (4.5-10.0)
[2023-03-09 16:48] LABS: Anisocytosis 1+ (NORMAL); Hypochromasia 1+ (NORMAL); Platelet Estimate Increased (Adequate); Schistocytes None Seen (NORMAL)
[2023-03-09 18:04] LABS: Alanine Aminotransferase 19 U/L (6-35); Albumin Level 2.6 g/dL (3.5-5.1); Alkaline Phosphatase 182 U/L (38-126); Anion Gap 8 mmol/L (8-16); Aspartate Amino Transferase 34 U/L (14-36); Bilirubin,Total 0.4 mg/dL (0.2-1.3); Blood Urea Nitrogen 14 mg/dL (7-17); Calcium 8.1 mg/dL (8.4-10.2); Carbon Dioxide 32 mmol/L (22-30); Chloride 96 mmol/L (98-107); Estimated CRCL calculation 67 ml/min; Estimated Glomerular Filt Rate 58; Glucose 124 mg/dL (65-110); Potassium 3.6 mmol/L (3.4-5.0); Sodium 136 mmol/L (137-145)
[2023-03-09 18:28] LABS: Glucose Point of Care 137 mg/dl (65-105)
--- NOTE | 2023-04-04 15:18 | P.DS_ITS ---
DS: Admitting Diagnosis Discharge Date 03/09/23 Admitting Diagnosis Abnormal labs DS: Discharge Diagnosis Discharge Diagnosis (1) Sepsis: Code(s): A41.9 - Sepsis, unspecified organism Status: Acute Assessment and Plan: Patient with sepsis present on admission with tachycardia and leukocytosis. 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 * UCx 02/24 grew mixed genital irish. * BCx 02/24 grew Klebsiella pneumoniae in all 4 bottles * BCx 02/28 NGTD Patient started on Rocephin and vancomycin. Rocephin switched to meropenem 02/24. Sensitivities return for the Klebsiella and patient was changed back to Rocephin 2g daily 02/27 White count improved until 02/26 and began to worsen 02/27. Chest x-ray shows patchy bilateral airspace disease but overall improved. CT A/P w/wo 03/01 showing: * unchanged multifocal PNA and septic emboli * Left kidney subcapsular collection c/w hematoma with perinephric gas and urothelial enhancement * Right kidney 8mm UPJ stone but no hydronephrosis and multilobulated rim- enhancing fluid fluid collection mid and lower pole Concerning for development of perinephric abscess. Echo showing EF 65-70%, nml diastolic dysfxn with thickened MV but no vegetations. Consider bleeding dyscrasia. Check vWF, , SPEP. 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 CT abd/pelvis 02/24 wo contrast showed: * Acute subcapsular hematoma of the left kidney with evidence of pyelitis. * Also gas in the left perinephric fat which may be from infection. * There is a nonobstructing right kidney stone and soft tissue in the right perinephric space. Patient started on antibiotics as mentioned above. Repeat CT A/P as above Urology consulted. Appreciate their input. B/L nephrostomy tubes placement 03/04, f/u outpatient for removal (3) Diabetic ketoacidosis associated with type 2 diabetes mellitus: Code(s): E11.10 - Type 2 diabetes mellitus with ketoacidosis without coma Status: Acute Assessment and Plan: Patient presented with hyperglycemia, nausea and vomiting.? She was found to be in DKA in the ER. She is a new onset DM. -She received IV fluids and started on insulin infusion per DKA protocol -AG closed. She was transitioned to SQ insulin -still with non-anion gap metabolic acidosis but lactic acid normal -serum bicarb better 25 Stop oral bicarb (4) Acute kidney injury: Code(s): N17.9 - Acute kidney failure, unspecified Status: Acute Assessment and Plan: Creatinine was 2.4 on admission. Creatinine has trended down to 1.0 today. She appears fluid overloaded so IV fluids stopped. Continue to monitor renal function, urine output and electrolytes. Continue oral bicarb added. Serial Lasix to improve fluid status (5) Pneumonia: Code(s): J
== END 2023-03-09 18:54 | disposition home or self-care (01) | DRG 871 ==
LOC: ANHED 18:15 → ANHIMU 19:00 → ANHICU 02-25 02:17 → ANH3MEDSUR 02-27 13:34
PROVIDERS: Internal Medicine; Physician Assistant; Urology; Admitting Provider Family Medicine; Emergency Provider Emergency Medicine; PCP Emergency Medicine; Visit Provider Student in an Organized Health Care Education/Training Program
DX: A41.9 Sepsis, unspecified organism (principal); E11.10 Type 2 diabetes mellitus with ketoacidosis without coma; N15.1 Renal and perinephric abscess; J18.9 Pneumonia, unspecified organism; N12 Tubulo-interstitial nephritis, not specified as acute or chronic; N17.9 Acute kidney failure, unspecified; S37.012A Minor contusion of left kidney, initial encounter; N39.0 Urinary tract infection, site not specified; B96.1 Klebsiella pneumoniae [K. pneumoniae] as the cause of diseases classified elsewhere; E86.0 Dehydration; N20.0 Calculus of kidney
CPT/HCPCS: 36415; 36600; 71045; 71046; 74176; 74178; 75989; 80048; 80053; 80069; 80202; 81001; 82010; 82274; 82375; 82550; 82565; 82570; 82607; 82728; 82746; 82805; 82948; 83036; 83050; 83540; 83550; 83605; 83735; 84100; 84155; 84156; 84165; 84166; 84443; 84702; 85014; 85018; 85025; 85027; 85246; 85610; 85730; 86038; 87040; 87070; 87075; 87077; 87086; 87088; 87186; 87205; 87641; 96361; 96365; 96366; 96367; 96375; 97161; 97165; 99285; A9270; C1729; C1769; C8929; G0378; J0696; J1650; J1815; J1940; J2185; J2405; J3370; J3475; J3480; J7030; J7040; Q9957; Q9967

== ENCOUNTER 2023-03-13 13:31 | Outpatient (CLI) | payer OTHER, SELFPAY ==
--- NOTE | ~2023-03-13 | CT_ITS ---
EXAMINATION: CT abdomen pelvis wo/w con DATE: 03/13/2023 14:40 INDICATION: Contusion of the left kidney TECHNIQUE: Computed tomography (CT) of the abdomen and pelvis was performed without intravenous contr ast. CT of the abdomen and pelvis was then performed with a total of 130 mL Omnipaque 350 intravenous contrast using a double-bolus technique for simultaneous opacification of the renal parenchyma and r enal collecting system. The dose-length product (DLP) was 3093.83 mGy-cm. Automated exposure control and iterative reconstruction technique were employed. COMPARISON: 03/01/2023, 02/24/2023 FINDINGS: There are small pleural effusions. There are centrally necrotic nodules in the visualized l ower lobes which are generally stable in size. The heart size is normal. The liver, spleen, pancreas, gallbladder, and adrenal glands are normal. There is been interval placement of percutaneous drains into subcapsular fluid collections of both kidneys. The subcapsular fluid collection of the right kid charley has nearly completely resolved post drain insertion. There has been interval decrease in size of the previously described left perinephric fluid collection however a moderate amount of perinephric f luid and gas persist. Maximum thickness on the left measures approximately 12 mm, previously 17 mm. T here is ill-defined enhancement in the left kidney lower pole. Again noted is nonocclusive thrombus i n the left renal vein. There is mild left retroperitoneal lymphadenopathy, likely reactive. No free i ntraperitoneal gas or evidence of bowel obstruction. There is any millimeters stone in the right nilson l pelvis. IMPRESSION: 1. Persistent but decreased left subcapsular abscess status post percutaneous drain insertion. 2. Near complete resolution of a probable subcapsular right kidney abscess. 3. Findings consistent with pyelonephritis and possible abscess of the left kidney lower pole. 4. Necrotic nodules of the visualized lung bases, consistent with septic emboli. 5. Nonobstructing stone of the right renal pelvis. 6. Small pleural effusions. Reviewed, dictated and finalized at location L. ER'S COMPENSATION CLAIMS EXAMINER IMPRESSION: 1. Persistent but decreased left subcapsular abscess status post percutaneous d rain insertion. 2. Near complete resolution of a probable subcapsular right kidney abscess. 3. Findings consistent with pyelonephritis and possible abscess of the left kid charley lower pole. 4. Necrotic nodules of the visualized lung bases, consistent with septic emboli . 5. Nonobstructing stone of the right renal pelvis. 6. Small pleural effusions.
== END 2023-03-13 13:32 | disposition home or self-care (01) ==
PROVIDERS: PCP Emergency Medicine; Visit Provider Urology
DX: S37.012A Minor contusion of left kidney, initial encounter (principal); X58.XXXA Exposure to other specified factors, initial encounter; J90 Pleural effusion, not elsewhere classified; N20.0 Calculus of kidney; R91.8 Other nonspecific abnormal finding of lung field
CPT/HCPCS: 74178; Q9967

== ENCOUNTER 2023-03-21 10:29 | Outpatient (CLI) | payer OTHER, SELFPAY ==
--- NOTE | ~2023-03-21 | XR_ITS ---
EXAMINATION: XR abdomen/kub 1V INDICATION: Abscess of the left kidney TECHNIQUE: Supine view the abdomen is obtained. COMPARISON: 02/19/2023 FINDINGS: A percutaneous drain projects near the left kidney. There is a 12 mm stone of the right kid charley. The bowel gas pattern is normal. IMPRESSION: 1. Percutaneous drain projecting near the left kidney. 2. Right nephrolithiasis. Reviewed, dictated and finalized at location B. LABORATORY TECHNICIAN
== END 2023-03-21 10:30 | disposition home or self-care (01) ==
PROVIDERS: PCP Emergency Medicine; Visit Provider Urology
DX: N15.1 Renal and perinephric abscess (principal); N20.0 Calculus of kidney
CPT/HCPCS: 74018

== ENCOUNTER 2023-04-04 15:01 | Outpatient (CLI) | payer OTHER, SELFPAY ==
--- NOTE | ~2023-04-04 | XR_ITS ---
EXAM: XR abdomen/kub 1V DATE: 04/04/2023 15:25 HISTORY: ABSCESS OF LEFT KIDNEY SINCE JANUARY . COMPARISON: None available. FINDINGS: Clear lung bases. Normal bowel gas pattern. No organomegaly. 1.2 cm right midpole calcific ation. Left-sided percutaneous drain, tip adjacent to the inferior pole of the left kidney, in stable position. Degenerative changes in the lumbar spine and bilateral hips. IMPRESSION: Stable left percutaneous drain. Right nephrolithiasis. Reviewed, dictated and finalized at location K. EMENT PROCESSOR
--- NOTE | ~2023-04-04 | CT_ITS ---
CT of the Abdomen and Pelvis: Indication: Left renal abscess Technique: 2.5 mm axial scans were obtained through the abdomen and pelvis prior to and following in travenous administration of 100 cc of Omnipaque 350. Dose reduction technique was used on this scan b y utilizing automated exposure control and iterative reconstruction technique. The dose-length produc t (DLP) was 2466.80 mGy-cm. COMPARISON: 03/13/2023 Findings: Scans through the lung bases demonstrate nodular areas of bibasilar consolidation, largest in the right lower lobe measuring 2.3 cm in diameter. This is probably minimally decreased from prio r exam. Additional nodules demonstrate central cavitation, new from prior exam. Some smaller nodules appear to be largely resolved since prior exam. There is additional probable bibasilar atelectasis or scarring.. The liver, spleen, pancreas, gallbladder, and adrenal glands are within normal limits. Stable stone a t the right renal pelvis without hydronephrosis. Right-sided percutaneous drainage catheter in the erickson bcapsular region of the right kidney has been removed since prior exam. Left renal subcapsular fluid collection is mildly decreased from prior exam with percutaneous drainage catheter remaining in place . Stable possible pyelonephritis and/or focal extension of abscess at the left lower renal pole. Ther e is mild hyperenhancement of the left urothelium at the renal pelvis and proximal left ureter. There is mild left perinephric stranding. No evidence of aortic aneurysm. No lymphadenopathy. No bowel obstruction or bowel wall thickening. There is no evidence to suggest acute appendicitis. Images through the pelvis were performed. Urinary bladder unremarkable. No pelvic mass seen. No ascit es. Impression: Left subcapsular renal abscess is further decreased in size from prior exam with drainage catheter re maining in place. Persistent extension of abscess into the left lower renal pole versus pyelonephriti s in this region. Status post interval removal of right subcapsular renal drainage catheter. No recurrent right-sided s ubcapsular fluid collection. Stable right renal pelvis stone. Bilateral pulmonary nodules are mildly decreased in size, with some smaller nodules demonstrating inc reased/new cavitation and/or resolution, compatible with further evolution of septic emboli. Reviewed, dictated and finalized at location M. ONAL LINES ADVISOR Impression: Left subcapsular renal abscess is further decreased in size from prior exam wit h drainage catheter remaining in place. Persistent extension of abscess into th e left lower renal pole versus pyelonephritis in this region. Status post interval removal of right subcapsular renal drainage catheter. No r ecurrent right-sided subcapsular fluid collection. Stable right renal pelvis stone. Bilateral pulmonary nodules are mildly decreased in size, with some smaller nod ules demonstrating increased/new cavitation and/or resolution, compatible with further evolution of septic emboli.
== END 2023-04-04 15:02 | disposition home or self-care (01) ==
PROVIDERS: PCP Emergency Medicine; Visit Provider Urology
DX: N15.1 Renal and perinephric abscess (principal); S37.012A Minor contusion of left kidney, initial encounter; X58.XXXA Exposure to other specified factors, initial encounter; R91.8 Other nonspecific abnormal finding of lung field
CPT/HCPCS: 74018; 74178; Q9967

== ENCOUNTER 2023-05-08 08:35 | Outpatient (CLI) | payer OTHER, SELFPAY ==
--- NOTE | ~2023-05-08 | CT_ITS ---
EXAMINATION: CT abdomen wo/w con DATE: 05/08/2023 09:45 INDICATION: Left kidney abscess TECHNIQUE: Computed tomography (CT) of the abdomen was performed without and with 100 mL Omnipaque-35 0 intravenous contrast. Automated exposure control and iterative reconstruction technique were employ ed. The dose-length product was 1399.81 mGy-cm. COMPARISON: 04/04/2023 FINDINGS: The prior pulmonary nodules have essentially resolved with some residual linear discoid atelectasis/s carring at the bilateral lower lung zones. Small amount of focal hepatic steatosis along the ligament um teres. Gallbladder, spleen, pancreas, bilateral adrenal glands are normal. There are wedge-shaped region of decreased renal parenchymal enhancement at both kidneys and some surrounding perinephric st randing, both left more prominent than right consistent with bilateral pyelonephritis. There is a 3.0 x 2.0 x 1.1 cm perinephric fluid collection along the lower pole of the left kidney at the site of a prior drainage catheter consistent with a residual small perinephric abscess versus urinoma. This pr eviously measured approximately 4.5 x 2.9 x 1.5 cm. No evident bowel obstruction. There are few mildl y prominent but still normal-sized likely reactive left para-aortic lymph nodes below level of the le ft renal artery and vein. No pathologically enlarged abdominal lymphadenopathy. Mild lower thoracic s pondylosis. IMPRESSION: 1. Geographic regions of hypoenhancement at the bilateral kidneys, left greater than right consistent with polynephritis. 2. Decrease in size of a now 3.0 x 2.0 x 1.1 cm perinephric fluid collection along the lower pole the left kidney with surrounding from trace stranding consistent with possible residual abscess or urino ma at the site of a prior drainage catheter. Reviewed, dictated and finalized at location A. ER HAND IMPRESSION: 1. Geographic regions of hypoenhancement at the bilateral kidneys, left greater than right consistent with polynephritis. 2. Decrease in size of a now 3.0 x 2.0 x 1.1 cm perinephric fluid collection al marita the lower pole the left kidney with surrounding from trace stranding consis tent with possible residual abscess or urinoma at the site of a prior drainage catheter.
[2023-05-08 09:12] LABS: Estimated Glomerular Filt Rate > 60
== END 2023-05-08 08:36 | disposition home or self-care (01) ==
PROVIDERS: PCP Emergency Medicine; Visit Provider Urology
DX: N15.1 Renal and perinephric abscess (principal)
CPT/HCPCS: 74170; Q9967

== ENCOUNTER 2023-06-10 09:30 | Outpatient (RCR) | payer OTHER, SELFPAY ==
[2023-04-03 10:46] VITALS: BMI 35.4
[2023-04-03 14:25] VITALS: BMI 35.4
[2023-06-10 09:35] VITALS: BMI 34.5
[2023-06-10 09:36] VITALS: BMI 34.5
== END 2023-06-23 10:42 | disposition home or self-care (01) ==
LOC: ANHDMC 09:30
PROVIDERS: PCP Family Medicine; Visit Provider Emergency Medicine
DX: E11.9 Type 2 diabetes mellitus without complications (principal); Z71.89 Other specified counseling; Z71.3 Dietary counseling and surveillance
CPT/HCPCS: 97802; 97803; G0108

== ENCOUNTER 2023-08-12 11:00 | Outpatient (RCR) | payer OTHER, SELFPAY ==
[2023-08-12 10:49] VITALS: BMI 33.3
[2023-08-12 11:03] VITALS: BMI 33.3
== END 2023-09-29 10:24 | disposition home or self-care (01) ==
LOC: ANHDMC 11:00
PROVIDERS: PCP Emergency Medicine; Visit Provider Emergency Medicine
DX: E11.9 Type 2 diabetes mellitus without complications (principal); Z71.89 Other specified counseling; Z71.3 Dietary counseling and surveillance
CPT/HCPCS: 97803; G0108

== ENCOUNTER 2024-03-13 08:05 | Emergency (ER) | payer OTHER, SELFPAY ==
[2024-03-13 08:23] VITALS: BP 125/61; PULSE 92; RESP 16; TEMP 36.6; O2SAT 100
--- NOTE | 2024-03-13 08:24 | ED_ITS ---
HPI - URI/Sore Throat General Chief Complaint: Upper Respiratory Infection Stated Complaint: Strep Symptoms Time Seen by Provider: 03/13/24 08:28 Source: patient and RN notes reviewed Mode of arrival: ambulatory Limitations: no limitations History of Present Illness HPI Narrative: 53-year-old female presents with concern for sore throat for 3-4 days. Reports some sinus pressure. Denies fever, aches, chills, sweats. Reports and daughter with similar symptoms MD elicited complaint: sore throat Related Data Allergies Allergy/AdvReac Type Severity Reaction Status Date / Time acetaminophen (From Vicodin) AdvReac Mild Dizziness Verified 03/13/24 08:27 hydrocodone (From Vicodin) AdvReac Mild Dizziness Verified 03/13/24 08:27 propoxyphene (From AdvReac Mild Dizziness Verified 03/13/24 08:27 Darvocet-N) Review of Systems Review of Systems: CONSTITUTIONAL: Denies malaise, chills, sweats, or fever. EYES: Denies visual changes, redness, or discharge. ENT: Reports rhinorrhea, congestion, and sore throat. CARDIOVASCULAR: Denies chest pain, palpitations, or edema. RESPIRATORY: denies cough. Denies dyspnea. GASTROINTESTINAL: Denies abdominal pain, nausea, vomiting, diarrhea SKIN: Denies rash or itching. MUSCULOSKELETAL: Denies myalgia. NEUROLOGIC: Denies headache. All systems reviewed & are unremarkable except as noted in HPI and below PMFSH Past Medical History Medical History Acute kidney injury ROSARIO (acute kidney injury) Bacteremia Dehydration Diabetic ketoacidosis associated with type 2 diabetes mellitus Diffuse lung disease Fatigue Hyperglycemia Left flank pain Nephrolithiasis New onset type 2 diabetes mellitus Pneumonia Renal hematoma, left Right nephrolithiasis Screening for breast cancer Screening for colon cancer Screening for diabetes mellitus Screening for lipid disorders Sepsis Type 2 diabetes mellitus UTI (urinary tract infection) Surgical History Surgical History No history of previous surgery Family History Family History Father Cancer Hypertension Mother Diabetes mellitus Heart disease Sibling Diabetes mellitus Social History Social History Social History: Surrogate medical decision maker: Magno Newman, spouse. Code status: Full code. 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 There is no relevant family history pertinent to the presenting complaint Exam Narrative: GENERAL: Well-appearing, well-nourished, and in no acute distress. HEAD: Normocephalic EYES: PERRLA, conjunctivae clear ENT: Nares clear. Mucous membranes moist. TM pearly goff with sharp light reflex bilaterally; no tragal tenderness. Oropharynx not erythematous without lesions. Tonsils not enlarged and without exudate, no drooling, no hoarseness, no trismus, uvula midline. NECK: Supple. No lymphadenopathy CHEST: Clear to auscultation, breath sounds equal. No wheezing, rhonchi, rales, or stridor. No respiratory distress, speaks in full sentences. HEART: Regular rate and rhythm. No murmur heard. SKIN: Warm, dry, no rash. NEURO: Alert and oriented x3. PSYCH: Normal mood and affect Course Course Emergency Course: Patient is aware of diagnosis, understands and agrees to treatment plan. Anticipatory guidance given. Patient agrees to follow-up as directed and is aware of reasons to seek care at the emergency department. Portions of this record may have been created with voice recognition software Level of Care: Express Care Visit Vital Signs Vital signs: Vital Signs Temperature 98 F 03/13/24 08:23 Pulse Rate 92 03/13/24 08:23 Respiratory Rate 16 03/13/24 08:23 Blood Pressure 125/61 03/13/24 08:23 Pulse Oximetry 100 03/13/24 08:23 Temperature 98 F 03/13/24 08:23 Pulse Rate 92 03/13/24 08:23 Respiratory Rate 16 12/21/24 08:23 Blood Pressure 125/61 03/13/24 08:23 Pulse Oximetry 100 03/13/24 08:23 Reviewed. MDM - URI/Sore Throat MDM Narrative Medical decision making narrative: Differential diagnosis considered: Mckeon virus, strep pharyngitis, allergic rhinitis, upper respiratory tract infection, sinusitis, rhinosinusitis, nasopharyngitis. viral pharyngitis, otitis media, otitis externa, pneumonia, bronchitis, viral cough syndrome, viral syndrome, and influenza. Exam findings show no acute concerns or changes; patient is non-toxic appearing and is in no distress. Patient is appropriate for outpatient treatment and follow-up. Lab Data Attestation: I reviewed the patient's lab results. Critical Care Time Critical Care Time Critical Care Time: No Discharge Plan Discharge Clinical Impression: COVID Patient Disposition: Home, Self-Care Condition: Stable Instructions: How to Recover from COVID-19 at Home (ED) Additional Instructions: Your rapid COVID test is positive. COVID is a virus, antibiotics are not effective against viruses. Your body has to kill viruses. ? Stay home when you are sick, except to get medical care. ? Stay home until your symptoms are resolving and you haven't had a fever for 24 hours. ? If you are self isolating at home where others live, use a separate room and bathroom for sick household members (if possible). Clean any shared rooms as needed, to avoid transmitting the virus. ? Wash your hands often with soap and water for at least 20 seconds, especially after blowing your nose, coughing, or sneezing; going to the bathroom; and before eating or preparing food. ? If soap and water are not available, use an alcohol-based hand him clerk with at least 60% alcohol. ? Have a supply of clean, disposable face masks. Everyone, no matter their COVID diagnosis, should wear face masks while in the home. - Over the counter medications such as Tylenol every 4 hours, ibuprofen every 6 hours (you can alternate these for maximum effect), Mucinex DM for cough, and psuedoephedrine (you must ask the pharmacist for this) can help relieve symptoms while your body fights off the virus. Watch for symptoms and learn when to seek emergency medical attention. If someone is showing any of these signs, seek emergency medical care immediately: ? Trouble breathing ? Persistent chest pain/pressure ? Confusion ? Inability to wake or stay awake ? Bluish lips or face Call 911 or call ahead to your local emergency room: Notify the extractor operator solvent process that you are seeking care for someone who has or may have COVID Patient Language: Ukrainian Prescriptions: No Action (DME) FreeStyle Fatmata 3 [place] [facility] See Rx Instructions .Route Qty: 2 3RF Rx Instructions: As directed clotrimazole 1 % cream 1 applic topical Q12H Qty: 45 1RF lisinopril 40 mg tablet 40 mg PO DAILY Qty: 90 1RF (DME) blood-glucose meter [OneTouch Verio Flex meter] [facility] Qty: 1 0RF Rx Instructions: May substitute to in-stock meter and/or covered by insurance. Use As Directed (DME) lancets [OneTouch Delica Plus Lancet] 30 gauge [facility] Qty: 1 0RF Rx Instructions: May substitute to in-stock and/or covered by insurance lancets. Use As Directed insulin lispro [Humalog KwikPen Insulin] 100 unit/mL insulin pen 5 unit subcut TID Qty: 15 3RF (DME) pen needle, diabetic [BD Reina 2nd Gen Pen Needle] 32 gauge x 5/32 needle See Rx Instructions .ROUTE .COMPLEX Qty: 100 1RF Dose Instruction: USE DIRECTED Rx Instructions: USE DIRECTED insulin glargine [Lantus Solostar U-100 Insulin] 100 unit/mL (3 mL) insulin pen 30 unit subcut QAM Qty: 15 1RF (DME) FreeStyle Fatmata 3 Sensor Device See Rx Instructions .Route Qty: 1 12RF Rx Instructions: As directed (DME) OneTouch Verio test strips Strip See Rx Instructions .Route Qty: 100 3RF Rx Instructions: Use to check BS BID rosuvastatin 10 mg tablet 10 mg PO DAILY Qty: 90 1RF Follow-up/Referrals: Kesha Dodd FNP-C [Primary Care Provider] - Time of Disposition: 08:37
[2024-03-13 08:36] LABS: EDCOVIDSCREEN Positive (Negative)
[2024-03-13 08:39] LABS: EDINFLUASCREEN Negative (Negative); EDINFLUBSCREEN Negative (Negative); EDSTREPNEGPOS1 Negative (Negative)
== END 2024-03-13 08:38 | disposition home or self-care (01) ==
PROVIDERS: Emergency Provider Nurse Practitioner; PCP Nurse Practitioner Family
DX: U07.1 COVID-19 (principal); E11.9 Type 2 diabetes mellitus without complications
CPT/HCPCS: 87081; 87426; 87804; 87880; 99213; G0463

== ENCOUNTER 2024-04-28 09:06 | Outpatient (CLI) | payer OTHER, SELFPAY ==
--- NOTE | ~2024-04-28 | NM_ITS ---
EXAMINATION: NM stress w perf spect multi DATE: 04/28/2024 12:02 INDICATION: Shortness of breath TECHNIQUE: Rest images were obtained following intravenous administration of 10.8 mCi Tc99m tetrofosm in (Myoview). The patient performed an exercise activity. At peak exercise, 31.8 mCi Tc99m tetrofosmi n (Myoview) was administered intravenously, and stress images were obtained. Data was reconstructed i nto short axis and horizontal and vertical long axis SPECT images. Gated SPECT images were also obtai belinda. COMPARISON: None. FINDINGS: There is normal left ventricular perfusion without definite evidence of reversible or fixed perfusion abnormality to suggest ischemia or infarction. There is normal left ventricular chamber size, wall motion and ejection fraction. Left ventricular ejection fraction measures >70%. IMPRESSION: 1. Normal myocardial perfusion at rest and during stress. 2. Left ventricular ejection fraction measuring >70%. Reviewed, dictated and finalized at location A. [employer]
--- NOTE | 2024-04-28 09:21 | EST_ITS ---
Patient Info Name: Dayna Newman Age: 53 years : 1970 Gender: Female Ht: 63 in Wt: 178 lbs BSA: 1.92 m2 HR: 74 bpm BP: 133 / 55 mmHg Exam Date: 04/28/2024 10:34 AM Exam Location: Echo Lab Patient Status: Outpatient Admit Date: 04/28/2024 Staff Ordering Physician: Kesha Dodd Attending Provider: Kesha Dodd Exercise Technologist: Emperatriz Barraza RDCS Exercise Physician: Chandu Mckeon DO Exam Type: CA stress test treadmill w NM Study Info A nuclear stress test was performed. Summary 1. 1. Negative Rivera exercise stress test for ischemic ST changes by ECG criteria. 2. 2. Reduced functional capacity, achieving 7 METs of workload. 3. 3. Appropriate HR response to exercise. 4. 4. Appropriate HR recovery at 1 minute post exercise. 5. 5. Nuclear scan to follow and will be reported separately. Please correlate with it. 6. 6. Patient informed of the above results. Protocol: Rivera Stress ECG Details Stage: REST Duration (min): 0 min : 53 sec Speed (mph): 0.0 Grade (%): 0 HR (bpm): 71 SBP (mmHg): 133 DBP (mmHg): 55 METS: --- Stage: REST Duration (min): 20 min : 26 sec Speed (mph): 0.0 Grade (%): 0 HR (bpm): 87 SBP (mmHg): 133 DBP (mmHg): 55 METS: --- Stage: STAGE 1 Duration (min): 1 min : 0 sec Speed (mph): 1.7 Grade (%): 10 HR (bpm): 103 SBP (mmHg): 133 DBP (mmHg): 55 METS: --- Stage: STAGE 1 Duration (min): 2 min : 0 sec Speed (mph): 1.7 Grade (%): 10 HR (bpm): 113 SBP (mmHg): 133 DBP (mmHg): 55 METS: --- Stage: STAGE 1 Duration (min): 3 min : 0 sec Speed (mph): 1.7 Grade (%): 10 HR (bpm): 123 SBP (mmHg): 169 DBP (mmHg): 46 METS: --- Stage: STAGE 2 Duration (min): 1 min : 0 sec Speed (mph): 2.5 Grade (%): 12 HR (bpm): 137 SBP (mmHg): 169 DBP (mmHg): 46 METS: --- Stage: STAGE 2 Duration (min): 2 min : 0 sec Speed (mph): 2.5 Grade (%): 12 HR (bpm): 142 SBP (mmHg): 169 DBP (mmHg): 46 METS: --- Stage: STAGE 2 Duration (min): 2 min : 35 sec Speed (mph): 2.5 Grade (%): 12 HR (bpm): 146 SBP (mmHg): 169 DBP (mmHg): 46 METS: --- Stage: RECOVERY Duration (min): 0 min : 24 sec Speed (mph): 0.0 Grade (%): 0 HR (bpm): 142 SBP (mmHg): 213 DBP (mmHg): 52 METS: --- Stage: RECOVERY Duration (min): 1 min : 24 sec Speed (mph): 0.0 Grade (%): 0 HR (bpm): 123 SBP (mmHg): 213 DBP (mmHg): 52 METS: --- Stage: RECOVERY Duration (min): 2 min : 24 sec Speed (mph): 0.0 Grade (%): 0 HR (bpm): 117 SBP (mmHg): 213 DBP (mmHg): 52 METS: --- Stage: RECOVERY Duration (min): 3 min : 4 sec Speed (mph): 0.0 Grade (%): 0 HR (bpm): 115 SBP (mmHg): 204 DBP (mmHg): 58 METS: --- Rest HR: 87 bpm Peak HR: 147 bpm Rest Sys BP: 133 mmHg Peak Sys BP: 213 mmHg Max Pred HR: 167 bpm % Max Pred HR: 88 % Target HR: 142 bpm Max RPP: 31,311 bpm*mmHg Ochoa Score: -2 Termination Reason: Reached target heart rate or workload Cardiac Symptoms: Shortness of breath Max ST Seg Deviation: 2 mm Total Time: 5 min : 35 sec Rest Davis BP: 55 mmHg Peak Davis BP: 52 mmHg Angina Score: None Total METS: 7.1 Resting ECG Sinus rhythm. Stress ECG No ST changes. Arrhythmias None. Report Signatures
--- OUTSIDE RECORDS SUMMARY | 2024-04-28 09:35 | XMS_ITS | Data Portability ---
Author Organization [facility], [facility] Address [address] [place] [address] Assessment No assessment recorded. Plan of Treatment Reminders Order Date Submit Date Provider Last Modified By Organization Details Last Modified Time Details Appointments None recorded. Lab None recorded. Referral None recorded. Procedures None recorded. Surgeries None recorded. Imaging None recorded. Medication Orders azithromyc in 500 mg tablet 2018 019 INTERFACE [id number], [address], [place], [address], 9 12:28:51 Patient TargetsNo targets recorded. Patient Instructions Encounter Date Encounter Id Patient Instructions Last Modified By Organization Details Last Modified Time 10/30/2018 [id number] sore throat: car e instructions Not available 10/30/2018 12:28:49 Discharge Instructions Not available 10/30/2018 12:28:49 Reason for Referral None Reported. Problems Name Problem SNOMED Code Status Onset Date Resolution Date Notes Provider Name and Address Organization Details Recorded Time Has a sore throat 464029075 Active 019 Rayne zuniga [facility] 9 12:16:47 Headache 19102481 [facility] 9 12:16:51 Problem Notes None recorded. Medical Equipment None Reported. Allergies Allergen ID Allergen Name Allergen Category Reaction Reaction Severity Criticality Documentation Date Start Date Code Code System Note Provider Name and Address Organization Details Recorded Time 91741 acetamino phen / hydrocodo ne medicatio n vomiting Not available Not available 10/30/2018 43612 2 RxNorm Rayne zuniga [facility] 9 12:16:03 09396 Darvocet- N medicatio n vomiting Not available Not available 10/30/2018 88686 UNK [facility] 9 12:16:12 Medications Name Sig Start Date Stop Date Status Note LastModified by Organization Details LastModified Time amoxicillin 500 mg capsule 10/30 completed Not Available Not Available Not Available azithromycin 500 mg tablet Take 1 tablet every day by oral route for 5 days. 2018 active Not Available Not Available Not Avai lable Advil active last dose 9 Not Available Not Available Not Available Vitals Date Recorded Heart rate Respiratory rate Oxygen saturation Oxygen saturation in Arterial blood by Pulse oximetry Body temperature Body height Body weight Systolic blood pressure Diastolic blood pressure Provider Name and Address Organization Details Last Updated DateTime 9 87 /min 16 /min 97 % 97 % 98.5 [degF] 160.02 cm 737993. 25 g 158 mm[Hg] 88 mm[Hg] Rayne Bangura [facility] 9 12:15:18 Social History Question Answer Notes LastModified by Organizat ion Details LastModified Time Tobacco Smoking Status Never [facility]oker [facility] 10/30/2018 12:16:59 Alcohol Use Occasional [email or web address] Information n ot available 10/30/2018 What Was The Date Of Your Most Recent Tobacco Screening? 10/30/2018 Information not available 10/31/2018 Are You Passively Exposed To Smoke? No [email or web address] Information not available 10/30/2018 Sex: Unknown Functional Status None recorded. Mental Status None recorded. Family History Relationship Description Onset Age of this Age Resolved Age Notes LastModified by Organization Details LastModified Time Father No current problems or disability [email or web address] Not available 10/30 12:16:53 Mother No current problems or disability [email or web address] Not available 10/30 12:16:53 Medical History Condition Response Discussed with patient No Past Medical H x Y Gynecological History Statement/Question Response Current Control Method None Date of LMP 10/23/2018 LMP Approximate Obstetrics History GPAL:G 0 P 0 0 0 0 Past Encounters Encounter ID Performer Location Encounter Start Date Encounter Closed Date Diagnosis/Indication Diagnosis SNOMED-CT Code Diagnosis ICD10 Code Diagnosis Note [id number] Malou Kamron [facility] [address] [place] [address] 10/30/2018 11:36:49 10/30/2018 12:38:48 Acute pharyngitis 196600339 J02.9 Health Concerns Section Related Observation LastModified by Organization Detai ls LastModified Time None Recorded Concern Status LastModified by Organization Details LastModified Time None Recorded Advance Directives Directive None Recorded Payers Encounter Date Sequence Insurance Name Policy Number Policy Zhang Covered Member ID Zhang Member ID Guarantor Name 10/30/2018 1 [facility] [id number] [facility] [id number] [facility] Notes Date Note Type Note Provider Name and Address Organization Details Recorded Time 10/30/2018 text/html Sore ThroatRepor lyndon bypatient.Location:b ilateral Quality:painful;loi p Onset/ Duration:3 day(s) ago Timing:abrupt onset Severity:worsening;m oderate Context:no recent travel; no tick/insect bites Associated Symptoms:no fever; no nausea [facility] 10/30/2018 12:29:09 OBGyn Episode No OBEpisode recorded.
== END 2024-04-28 09:07 | disposition home or self-care (01) ==
PROVIDERS: PCP Nurse Practitioner Family; Visit Provider Nurse Practitioner Family
DX: R06.02 Shortness of breath (principal); R42 Dizziness and giddiness
CPT/HCPCS: 78452; 93017; A9502

== ENCOUNTER 2024-09-06 06:50 | Day surgery (SDC) | payer OTHER, SELFPAY ==
[2024-04-07 10:03] VITALS: BMI 33.3
--- OUTSIDE RECORDS SUMMARY | 2024-09-06 07:02 | XMS_ITS | Data Portability ---
Author Organization [facility] Address [address] [place] [address] Assessment No assessment recorded. Plan of Treatment Reminders Order Date Submit Date Provider Last Modified By Organization Details Last Modified Time Details Appointments None recorded. Lab None recorded. Referral None recorded. Procedures None recorded. Surgeries None recorded. Imaging None recorded. Medication Orders azithromyc in 500 mg tablet 2018 019 [id number], [address], [place], [address], 9 12:28:51 Patient TargetsNo targets recorded. Patient Instructions Encounter Date Encounter Id Patient Instructions Last Modified By Organization Details Last Modified Time 10/30/2018 [id number] sore throat: car e instructions Not available 10/30/2018 12:28:49 Discharge Instructions Not available 10/30/2018 12:28:49 Reason for Referral None Reported. Problems Name Problem SNOMED Code Status Onset Date Resolution Date Notes Provider Name and Address Organization Details Recorded Time Has a sore throat 671878304 Active 019 Rayne zuniga [facility] 9 12:16:47 Headache 49147065 [facility] 9 12:16:51 Problem Notes None recorded. Medical Equipment None Reported. Allergies Allergen ID Allergen Name Allergen Category Reaction Reaction Severity Criticality Documentation Date Start Date Code Code System Note Provider Name and Address Organization Details Recorded Time 18879 acetamino phen / hydrocodo ne medicatio n vomiting Not available Not available 10/30/2018 85094 2 RxNorm Rayne zuniga [facility] 9 12:16:03 57451 Darvocet- N medicatio n vomiting Not available Not available 10/30/2018 40439 UNK [facility] 9 12:16:12 Medications Name Sig Start Date [...] % 97 % 98.5 [degF] 160.02 cm 124404. 25 g 158 mm[Hg] 88 mm[Hg] Rayne Bangura [facility] 9 12:15:18 Social History Question Answer Notes LastModified by Organizat ion Details LastModified Time Tobacco Smoking Status Never Smoker [facility] 10/30/2018 12:16:59 Alcohol Use Occasional [email or web address] Information n ot available 10/30/2018 What Was The Date Of Your Most Recent Tobacco Screening? 10/30/2018 Information not available 10/31/2018 Are You Passively Exposed To Smoke? No [email or web address] Information not available 10/30/2018 Sex: Unknown Functional Status None recorded. Mental Status None recorded. Family History Relationship Description Onset Age of this Age Resolved Age Notes LastModified by Organization Details LastModified Time Father No current problems or disability Not available 10/30 12:16:53 Mother No current problems or disability [email or web address] Not available 10/30 12:16:53 Medical History Condition Response Discussed with patient No Past Medical H x Y Gynecological History Statement/Question Response Current Control Method None Date of LMP 10/23/2018 LMP Approximate Obstetrics History GPAL:G 0 P 0 0 0 0 Past Encounters Encounter ID Performer Location Encounter Start Date Encounter Closed Date Diagnosis/Indication Diagnosis SNOMED-CT Code Diagnosis ICD10 Code Diagnosis Note [id number] Malou Lundy NP [facility] [address] [place] [address] 10/30/2018 11:36:49 10/30/2018 12:38:48 Acute pharyngitis 780108970 J02.9 Health Concerns Section Related Observation LastModified by Organization Detai ls LastModified Time None Recorded Concern Status LastModified by Organization Details LastModified Time None Recorded Advance Directives Directive None Recorded Payers Insurance Date Sequence Insurance Name Policy Number Policy Zhang Covered Member ID Zhang Member ID Guarantor Name 10/30/2018 1 [facility] [id number] [facility] [id number] [facility] Notes Date Note Type Note Provider Name and Address Organization Details Recorded Time 10/30/2018 text/html Sore ThroatRepor lyndon bypatient.Location:b ilateral Quality:painful;loi p Onset/ Duration:3 day(s) ago Timing:abrupt onset Severity:worsening;m oderate Context:no recent travel; no tick/insect bites Associated Symptoms:no fever; no nausea [facility] 10/30/2018 12:29:09 OBGyn Episode No OBEpisode recorded.
[2024-09-06 07:26] VITALS: BMI 28.5
[2024-09-06 07:27] VITALS: BP 139/79; PULSE 104; RESP 18; TEMP 36.8; O2SAT 100
--- NOTE | 2024-09-06 07:35 | WPDANESEPPF ---
Anes - Initial Pre Proc Eval Procedure: Operation Date: 09/06/24 08:30 Proposed Procedures p Screening Colonoscopy - Chad Dominguez MD Date/Time: 09/06/24 07:35 Surgeon: Chad Dominguez MD Pre Op Diagnosis: Screening Pre Op Diagnosis: Neoplasm Screening Patient Data Age: 54 Gender: F Height: 1.6 m Weight: 73 kg Last Vital Signs Temp 36.8 C 09/06/24 07:27 Pulse 104 H 09/06/24 07:27 Resp 18 09/06/24 07:27 BP 139/79 09/06/24 07:27 Pulse Ox 100 09/06/24 07:27 O2 Del Method Room Air 09/06/24 07:27 Allergies Allergy/AdvReac Type Severity Reaction Status Date / Time hydrocodone (From Vicodin) AdvReac Mild Dizziness Verified 09/06/24 07:09 propoxyphene (From AdvReac Mild Dizziness Verified 09/06/24 07:09 Darvocet-N) Home Medications ?Medication ?Instructions ?Recorded ?Confirmed ?Type blood-glucose meter (OneTouch #1 pkg 03/10/23 08/04/24 Rx Verio Flex Meter) lancets 30 gauge (OneTouch Delica #1 pkg 03/10/23 08/04/24 Rx Plus Lancet) pen needle, diabetic 32 gauge x #100 ea 10/06/23 08/04/24 Rx 5/32 (BD Reina 2nd Gen Pen Needle) blood sugar diagnostic (OneTouch #100 ea 12/30/23 08/04/24 Rx Verio test strips) blood-glucose sensor (FreeStyle #1 ea 12/30/23 08/04/24 Rx Fatmata 3 Sensor device) rosuvastatin 10 mg tablet 10 mg PO DAILY #90 tabs 01/19/24 09/06/24 Rx blood-glucose,refining machine operator,cont #2 ea 08/04/24 08/04/24 Rx (FreeStyle Fatmata 3 [place]) methocarbamol 750 mg tablet 750 mg PO TID PRN back pain #30 08/04/24 09/06/24 Rx tabs pantoprazole 20 mg tablet,delayed 20 mg PO QAM #30 tabs 08/05/24 09/06/24 Rx release multivitamin (Daily Multi-Vitamin 1 tablet PO DAILY 08/18/24 09/06/24 History tablet) tirzepatide 7.5 mg/0.5 mL See Rx Instructions .Route 08/20/24 09/06/24 Rx subcutaneous pen injector .COMPLEX #2 mL (Danilo) Patient hx anesthesia problems: none Family hx anesthesia problems: none Results Review: All pre-operative results and documents have been reviewed as part of the pre-operative evaluation. [facility] Past Medical History Medical History (Updated 09/06/24 @ 08:33 by Chad Dominguez MD) Screening for colon cancer Pneumonia Bacteremia Diffuse lung disease Renal hematoma, left Right nephrolithiasis Dehydration New onset type 2 diabetes mellitus Diabetic ketoacidosis associated with type 2 diabetes mellitus Acute kidney injury Sepsis Type 2 diabetes mellitus UTI (urinary tract infection) Hyperglycemia ROSARIO (acute kidney injury) Nephrolithiasis Fatigue Screening for lipid disorders Left flank pain Screening for breast cancer Screening for diabetes mellitus Surgical History Surgical History No history of previous surgery Family History Family History Father Cancer Hypertension Mother Diabetes mellitus Heart disease Sibling Diabetes mellitus Social History Social History Social History: Surrogate medical decision maker: Magno Newman, spouse. Code status: Full code. 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 Informed Consent: The patient's anesthetic plan and its attendant risks and benefits were discussed with the patient/family/POA. Questions were solicited and answers provided to the satisfaction of the patient/family/POA.
[2024-09-06 07:42] LABS: Glucose Point of Care 106 mg/dl (65-105)
[2024-09-06] MEDS: LACTATED RINGERS 1,000 ML 150 ML IV CONT (07:42)
--- NOTE | 2024-09-06 07:59 | WPDANESEPP ---
Anes - Eval Pre Procedure Procedure: Operation Date: 09/06/24 08:30 Proposed Procedures p Screening Colonoscopy - Chad Dominguez MD Date/Time: 09/06/24 07:59 Pre Op Diagnosis: Neoplasm Screening Patient Data Age: 54 Gender: F Height: 1.6 m Weight: 73 kg Last Vital Signs Temp 36.8 C 09/06/24 07:27 Pulse 104 H 09/06/24 07:27 Resp 18 09/06/24 07:27 BP 139/79 09/06/24 07:27 Pulse Ox 100 09/06/24 07:27 O2 Del Method Room Air 09/06/24 07:27 Allergies Allergy/AdvReac Type Severity Reaction Status Date / Time hydrocodone (From Vicodin) AdvReac Mild Dizziness Verified 09/06/24 07:09 propoxyphene (From AdvReac Mild Dizziness Verified 09/06/24 07:09 Darvocet-N) Home Medications ?Medication ?Instructions ?Recorded ?Confirmed ?Type blood-glucose meter (OneTouch #1 pkg 03/10/23 08/04/24 Rx Verio Flex Meter) lancets 30 gauge (OneTouch Delica #1 pkg 03/10/23 08/04/24 Rx Plus Lancet) pen needle, diabetic 32 gauge x #100 ea 10/06/23 08/04/24 Rx 5/32 (BD Reina 2nd Gen Pen Needle) blood sugar diagnostic (OneTouch #100 ea 12/30/23 08/04/24 Rx Verio test strips) blood-glucose sensor (FreeStyle #1 ea 12/30/23 08/04/24 Rx Fatmata 3 Sensor device) rosuvastatin 10 mg tablet 10 mg PO DAILY #90 tabs 01/19/24 09/06/24 Rx blood-glucose,music publicist,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 #2 ea 08/04/24 08/04/24 Rx (FreeStyle Fatmata 3 [place]) methocarbamol 750 mg tablet 750 mg PO TID PRN back pain #30 08/04/24 09/06/24 Rx tabs pantoprazole 20 mg tablet,delayed 20 mg PO QAM #30 tabs 08/05/24 09/06/24 Rx release multivitamin (Daily Multi-Vitamin 1 tablet PO DAILY 08/18/24 09/06/24 History tablet) tirzepatide 7.5 mg/0.5 mL See Rx Instructions .Route 08/20/24 09/06/24 Rx subcutaneous pen injector .COMPLEX #2 mL (Mounjaro) Laboratory Tests 09/06/24 07:37 POC Capillary Glucose 106 H mg/dl (65-105) Patient hx anesthesia problems: none Family hx anesthesia problems: none Results Review: All pre-operative results and documents have been reviewed as part of the pre-operative evaluation. [facility] Past Medical History Medical History Pneumonia Bacteremia Diffuse lung disease Renal hematoma, left Right nephrolithiasis Dehydration New onset type 2 diabetes mellitus Diabetic ketoacidosis associated with type 2 diabetes mellitus Acute kidney injury Sepsis Type 2 diabetes mellitus UTI (urinary tract infection) Hyperglycemia ROSARIO (acute kidney injury) Nephrolithiasis Fatigue Screening for lipid disorders Left flank pain Screening for breast cancer Screening for diabetes mellitus Screening for colon cancer Surgical History Surgical History No history of previous surgery Family History Family History Father Cancer Hypertension Mother Diabetes mellitus Heart disease Sibling Diabetes mellitus Social History Social History Social History: Surrogate medical decision maker: Magno Newman, spouse. Code status: Full code. 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
--- NOTE | 2024-09-06 08:33 | PM.IMHP ---
H&P: HPI History of Present Illness Date/Time: 09/06/24 08:33 Chief Complaint: Screening colonoscopy Narrative: This is the patient's first colonoscopy. There are no GI symptoms and there is no family history of colorectal cancer. Review of Systems Review of Systems: All systems reviewed & are unremarkable except as noted in HPI and below PMFSH Past Medical History Medical History (Updated 09/06/24 @ 08:33 by Chad Dominguez MD) Screening for colon cancer Pneumonia Bacteremia Diffuse lung disease Renal hematoma, left Right nephrolithiasis Dehydration New onset type 2 diabetes mellitus Diabetic ketoacidosis associated with type 2 diabetes mellitus Acute kidney injury Sepsis Type 2 diabetes mellitus UTI (urinary tract infection) Hyperglycemia ROSARIO (acute kidney injury) Nephrolithiasis Fatigue Screening for lipid disorders Left flank pain Screening for breast cancer Screening for diabetes mellitus Surgical History Surgical History No history of previous surgery Family History Family History Father Cancer Hypertension Mother Diabetes mellitus Heart disease Sibling Diabetes mellitus Social History Social History Social History: Surrogate medical decision maker: Magno Newman, spouse. Code status: Full code. 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 Spiritual care concerns: No Agree to blood products: Yes Meds Home Medications and Allergies Home Medications ?Medication ?Instructions ?Recorded ?Confirmed ?Type blood-glucose meter (OneTouch #1 pkg 03/10/23 08/04/24 Rx Verio Flex Meter) lancets 30 gauge (OneTouch Delica #1 pkg 03/10/23 08/04/24 Rx Plus Lancet) pen needle, diabetic 32 gauge x #100 ea 10/06/23 08/04/24 Rx 5/32 (BD Reina 2nd Gen Pen Needle) blood sugar diagnostic (OneTouch #100 ea 12/30/23 08/04/24 Rx Verio test strips) blood-glucose sensor (FreeStyle #1 ea 12/30/23 08/04/24 Rx Fatmata 3 Sensor device) rosuvastatin 10 mg tablet 10 mg PO DAILY #90 tabs 01/19/24 09/06/24 Rx blood-glucose,licensing and registration director,cont #2 ea 08/04/24 08/04/24 Rx (FreeStyle Fatmata 3 [place]) methocarbamol 750 mg tablet 750 mg PO TID PRN back pain #30 08/04/24 09/06/24 Rx tabs pantoprazole 20 mg tablet,delayed 20 mg PO QAM #30 tabs 08/05/24 09/06/24 Rx release multivitamin (Daily Multi-Vitamin 1 tablet PO DAILY 08/18/24 09/06/24 History tablet) tirzepatide 7.5 mg/0.5 mL See Rx Instructions .Route 08/20/24 09/06/24 Rx subcutaneous pen injector .COMPLEX #2 mL (Mounjosephro) Allergies Allergy/AdvReac Type Severity Reaction Status Date / Time hydrocodone (From Vicodin) AdvReac Mild Dizziness Verified 09/06/24 07:09 propoxyphene (From AdvReac Mild Dizziness Verified 09/06/24 07:09 Darvocet-N) Vital Signs Vital Signs - 24 hr 09/06/24 07:27 Temperature 98.2 F Pulse Rate 104 H Respiratory Rate 18 Blood Pressure 139/79 Pulse Oximetry 100 Oxygen Delivery Room Air Exam Const: General: cooperative and healthy appearing Resp: Effort & Inspection: normal respiratory effort and able to speak in complete sentences Auscultation: clear to auscultation bilaterally Cardio: Rate: regular rate Rhythm: regular rhythm GI: Inspection: normal to inspection GI Palp: No No hepatosplenomegaly present Auscultation: normal bowel sounds Rectal Exam: deferred Skin: General skin exam: normal color Psych: Appearance: grossly normal Mental Status: mental status grossly normal Assessment and Plan Assessment and plan (1) Screening for colon cancer: Code(s): Z12.11 - Encounter for screening for malignant neoplasm of colon Status: Acute Assessment and Plan: The patient is deemed a good candidate for the procedure. Consent signed. Will proceed.
[2024-09-06 09:04] VITALS: BP 118/69; PULSE 86; RESP 14; O2SAT 99
--- NOTE | 2024-09-06 09:11 | WPDANESPN ---
Anes - Prog Note Post-Op Date/Time: 09/06/24 09:11 Vital Signs: Last Vital Signs Temp 98.2 F 09/06/24 07:27 Pulse 104 H 09/06/24 07:27 Resp 18 09/06/24 07:27 BP 139/79 09/06/24 07:27 Pulse Ox 100 09/06/24 07:27 O2 Del Method Room Air 09/06/24 07:27 Pain Score (VAS): no pain I/O: Intake & Output 09/05/24 09/06/24 09/06/24 23:59 07:59 15:59 Intake Total 250 Balance 250 09/06/24 07:37 POC Capillary Glucose 106 H Patient Feedback: Patient satisfied with anesthetic care.
[2024-09-06 09:14] VITALS: BP 124/61; PULSE 81; RESP 15; O2SAT 99
[2024-09-06 09:24] VITALS: BP 127/71; PULSE 75; RESP 15; O2SAT 100
== END 2024-09-06 09:42 | disposition home or self-care (01) ==
PROVIDERS: PCP Nurse Practitioner Family; Visit Provider Internal Medicine Gastroenterology
PROC: 0DJD8ZZ Inspection of Lower Intestinal Tract, Via Natural or Artificial Opening Endoscopic (ICD-10-PCS; CPT 45378; principal; 2024-09-06 08:30)
DX: Z12.11 Encounter for screening for malignant neoplasm of colon (principal); D12.5 Benign neoplasm of sigmoid colon
CPT/HCPCS: 45385

== ENCOUNTER 2024-09-06 07:51 | Outpatient (NON) | payer OTHER, SELFPAY ==
--- NOTE | 2024-09-06 | S_PTH ---
PATIENT: Dayna Newman LOC: [facility] U#:[id number] AGE/SX: 54/F ROOM: RE09/06/[address]: Chad Dominguez MD : 1970 BED: DIS: 09/06/2024 SPEC #: [id number] RECD: 09/07/24 09:31 STATUS: SANIYA REQ #: [id number] NAVI: 09/06/24 00:[address]: Chad Dominguez DEPT: [facility] Surgical RECD BY: Adeline Luciano ENTERED: 09/07/24 09:32 SP TYPE: Surgical OTHR DR: Kesha Dodd, RAMILA Tissues: A - Colon Polypectomy Procedures: Hematoxylin and Eosin Stain Gross and Microscopic Level 4
--- OUTSIDE RECORDS SUMMARY | 2024-09-07 07:56 | XMS_ITS | Data Portability ---
Author Organization [facility]72xuan [facility], [facility] Address [address] [place] [address] Assessment No assessment recorded. Plan of Treatment Reminders Order Date Submit Date Provider Last Modified By Organization Details Last Modified Time Details Appointments None recorded. Lab None recorded. Referral None recorded. Procedures None recorded. Surgeries None recorded. Imaging None recorded. Medication Orders azithromyc in 500 mg tablet 2018 019 INTERFACE [id number], [address], [place], [address], 9 12:28:51 Patient TargetsNo targets recorded. Patient Instructions Encounter Date Encounter Id Patient Instructions Last Modified By Organization Details Last Modified Time 10/30/2018 [id number] sore throat: car e instructions Not available 10/30/2018 12:28:49 Discharge Instructions Not available 10/30/2018 12:28:49 Reason for Referral None Reported. Problems Name Problem SNOMED Code Status Onset Date Resolution Date Notes Provider Name and Address Organization Details Recorded Time Has a sore throat [id number] Active 019 Rayne zuniga [facility] 9 12:16:47 [facility]ache [id number] [facility] 12:16[facility]51 Problem Notes None recorded. Medical Equipment None Reported. Allergies Allergen ID Allergen Name Allergen Category Reaction Reaction Severity Criticality Documentation Date Start Date Code Code System Note Provider Name and Address Organization Details Recorded Time 41790 acetamino phen / hydrocodo ne medicatio n vomiting Not available Not available 10/30/2018 56237 2 RxNorm Rayne zuniga [facility] 9 12:16:03 [id number] Darvocet- N medicatio n vomiting Not available Not available 10/30/2018 [id number] UNK [facility] [...] % 97 % 98.5 [degF] 160.02 cm 943459. 25 g 158 mm[Hg] 88 mm[Hg] Rayne Bangura [facility] 9 12:15:18 Social History Question Answer Notes LastModified by Organizat ion Details LastModified Time Tobacco Smoking Status Never [facility]oker [facility] 10/30/2018 12:16:59 Alcohol Use Occasional [email or web address] Information n ot available 10/30/2018 What Was The Date Of Your Most Recent Tobacco Screening? 10/30/2018 Information not available 10/31/2018 Are You Passively Exposed To Smoke? No Information not available 10/30/2018 Sex: Unknown Functional Status None recorded. Mental Status None recorded. Family History Relationship Description Onset Age of this Age Resolved Age Notes LastModified by Organization Details LastModified Time Father No current problems or disability [email or web address] Not available 10/30 12:16:53 Mother No current problems or disability Not available 10/30 12:16:53 Medical History Condition Response Discussed with patient No Past Medical H x Y Gynecological History Statement/Question Response Current Control Method None Date of LMP 10/23/2018 LMP Approximate Obstetrics History GPAL:G 0 P 0 0 0 0 Past Encounters Encounter ID Performer Location Encounter Start Date Encounter Closed Date Diagnosis/Indication Diagnosis SNOMED-CT Code Diagnosis ICD10 Code Diagnosis Note [id number] Malou Lundy NP [facility] [id number] [facility] [address] [place] [address] 10/30/2018 11:36:49 10/30/2018 12:38:48 Acute pharyngitis [id number] J02.9 Health Concerns Section Related Observation LastModified by Organization Detai ls LastModified Time None Recorded Concern Status LastModified by Organization Details LastModified Time None Recorded Advance Directives Directive None Recorded Payers Insurance Date Sequence Insurance Name Policy Number Policy Zhang Covered Member ID Zhang Member ID Guarantor Name 10/30/2018 1 [facility] [id number] [facility] [id number] [facility] Notes Date Note Type Note Provider Name and Address Organization Details Recorded Time 10/30/2018 text/html Sore ThroatRepor lyndon bypatient.Location:[facility] [place] Quality:painful;loi p Onset/ Duration:3 day(s) ago Timing:abrupt onset Severity:worsening;m oderate Context:no recent travel; no tick/insect bites Associated Symptoms:no fever; no nausea [facility] 10/30/2018 12:29:09 OBGyn Episode No OBEpisode recorded.
== END 2024-09-06 07:52 | disposition home or self-care (01) ==
LOC: ANHLAB 09-07 07:52
PROVIDERS: PCP Nurse Practitioner Family; Visit Provider Internal Medicine Gastroenterology
DX: Z12.11 Encounter for screening for malignant neoplasm of colon (principal)
CPT/HCPCS: 88305